=== PATIENT | female | born 1985 | race African-American/Black ===

== ENCOUNTER 2018-07-19 10:00 | Outpatient (RCR) | payer OTHER, SELFPAY ==
[2018-04-17 16:09] VITALS: BMI 25.4
--- NOTE | 2018-07-17 09:21 | HP.OTEVAL_ITS ---
Patient's Visit Information CASSIE GOODE is a 33 year old F, referred to Occupational Therapy by J Luis Reza DO, with a diagnosis of breast cancer. Date of Evaluation: 07/16/18 Occupational Therapist: ROLANDA Patton/Joselin, CHT - Subjective Subjective: Pt arrives with [id number]. per dr report: states Cassie Goode is a 33-year-old premenopausal female clinical stage IIA-IIIA ([id number] cN1 (f) M0, ypT1b ypN1a M0) high-grade invasive ductal carcinoma (ER >95%, MS 38 %, Her2 0 IHC) of the right breast upper outer quadrant status post confirmatory biopsy of the breast tumor as well as 1 of the abnormal appearing right axillary lymph nodes, neoadjuvant chemotherapy consisting of ddAC x 4 cycles followed by dd paclitaxel x 1 cycle and weekly paclitaxel for 7 weeks ( dose dense switched due to toxicity and weekly stopped 2 weeks early due to infusion reaction), and bilateral nipple sparing mastectomy with right SLNBx and completion axillary dissection with immediate bilateral tissue set up operator placement (02/21/18). From 04/23/18 - 06/05/18 she received 5000 cGy in 25 fractions to the right CW (with set up operator in place) and Regional Lymph Nodes ( undissected axilla, supraclavicular fossa, and internal mammary LNs) followed by a sequential boost consisting of 1000 cGy of 12 MeV electrons in 5 fractions was delivered to the mastectomy scar. Pt states she was dx with breast cancer in 2017. 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 PT states she has finished her radiation and will be having reconstruction sx in 6-8 months. Pt states ten - 12 lymph nodes removed 1 positve. pt would like to learn how to work and mtg her upcoming sx. - ROM Shoulder: right 160 left 170 Elbow: right WNL left WNL ROM Comments: pt demo right shoulder flex WFL and left WNL- pt does push head forward with motions- pt states she does have scoliocis and can not lay flat. pt feels she had full shoulder ROM prior to her sx. pt demo with fair sitting posture. - Strength Shoulder: right 4/5 left 5/5 Elbow: right 4/5 left 5/5 Strength Comments: pt demo with decrease in right UE MMT compaired to left. - Lymphedema (Circumferential Measure) MCP: right 19 left 19.5 Wrist: 15.5 left 16cm Lower forearm: 18 left 18 Largest forearm: 24cm left 24cm Elbow: 24.5cm left 25cm Largest humerus: 26cm left 27cm Axcillary: 29cm left 30cm - DASH-Disabilities of Arm, Shoulder& Hand DASH Sum: 48 - Goals Demonstrate adequate knowledge of self-massage by 2nd week: Yes Demonstrate adequate knowledge skin care/prec by 2nd week: Yes Demonstrate adequate knowledge therapeutic exercises by d/c: Yes Select approp compression garment w/donning/care/wear by d/c: Yes Voice need to replace compression garment every 4-6mo by dc: Yes - Rehabilitation General Assessment: pt demo with slight limited right shoulder flex and weakness - pt would benefit from skilled OT services to ed. pt on UB ROM, posture ex, scar mtg and lymph massage to right UE. Today pt was ed. on ex that included scapula and upper trap to assist in increaseing her posture. pt ed. she will need compression garment 20-30mmHg for flying. pt ed. if she increased her wts with ex. and noticed swelling she would need to use her compression sleeve with her ex. classes. pt demo understanding. pt will return for training on self manual lymph drainage. Rehabilitation Potential: Good - Anticipated Interventions Anticipated Interventions: Education re Diagnosis, Manual Lymph Drainage, Education re Life-long lymphedema Management, Education re Skin Care and Precautions, Education re Self Massage Techniques, Education re Correct Donning Tech,Care&Wearing Sched Comp Garments, Home Program - Visit Plan Frequency: 1x/Week Duration: 3 Weeks TEXT: Thank you for the opportunity to evaluate your patient. For Medicare and Medicare HMO plans, please review the plan of care and approve it. It will need to be FAXED BACK to us at [phone] for Medicare purposes. Please let me know if there are questions or concerns regarding this plan of care. Physician Signature: Date:
--- NOTE | 2018-09-11 08:09 | HP.OT.NRP ---
HP - Discharge Summary - Patient Information CASSIE HILL was seen in my office for initial evaluation on 07/16/18. The following Plan of Care was established for this patient: Initial Frequency: 1x/Week Initial Duration: 3 Weeks - Anticipated Interventions Anticipated Interventions: Education re Diagnosis, Manual Lymph Drainage, Education re Life-long lymphedema Management, Education re Skin Care and Precautions, Education re Self Massage Techniques, Education re Correct Donning Tech,Care&Wearing Sched Comp Garments, Home Program This patient was last seen in our office 07/19/18. Pertinent comments regarding their Occupational therapy will appear below: Pt was seen for intial eval and one follow up visit pir[place] to leaving the country [place] three weeks. Pt and spouse were ed. on MLD sam. and posture ex. pt also ed. on compression sleeve use while flying. Pt and spouse demo understanding. At this time due to timelapse in services pt D/C at this time. At this point I will be discontinuing this patient from occupational therapy. I would be happy to see this patient again in the future if found appropriate by the physician. Thank you! Martina Hamilton, OTR/L, CHT
== END 2018-07-19 19:00 | disposition home or self-care (01) ==
LOC: OT 10:00
PROVIDERS: Family Provider Family Medicine; PCP Family Medicine; Visit Provider Student in an Organized Health Care Education/Training Program
DX: C50.919 Malignant neoplasm of unspecified site of unspecified female breast (principal)
CPT/HCPCS: 97140; 97166

== ENCOUNTER → 2018-10-11 16:23 | Outpatient (CLI) | payer OTHER, SELFPAY ==
[2018-04-17 16:09] VITALS: BMI 25.4
[2018-10-10 14:01] VITALS: BMI 23.6
[2018-10-11 16:31] LABS: Hemoglobin 10.7 g/dl (12.0-15.0); Mean Corp Hgb Conc 31.5 g/gl (32-36); Mean Corpuscular Hgb 22.8 pg (27.0-32.0); Mean Corpuscular Volume 72.5 fL (81-99); Mean Platelet Vol. 10.4 fl (6.2-12.0); Platelet Count 212 K/mm3 (150-450); RBC Distribution Width CV 16.4 % (11.6-14.6); RBC Distribution Width SD 43.5 fl (35.1-43.9); Red Blood Count 4.69 M/mm3 (4.2-5.4)
[2018-10-11 16:34] LABS: Scan Indicated on CBC? Y/N NO
--- OUTSIDE RECORDS SUMMARY | 2018-11-27 13:58 | XMS RPT_ITS ---
:1985 Author Organization OHIP Support Name Relationship Address Phone [facility] Unavailable [address] + [place] [address] JAYDEN HILL Unavailable [address] + [place] [address] HILL, EDGAR/CURTIS Unavailable [address] + [place] [address] [facility] Unavailable [address] + [place] [address] JAYDEN HILL Unavailable [address] + [place] [address] HILL, EDGAR/CURTIS Unavailable [address] + [place] [address] [facility] Unavailable [address] + [place] [address] JAYDEN HILL Unavailable [address] + [place] [address] HILL, EDGAR/CURTIS Unavailable [address] + [place] [address] [facility] Unavailable [address] + [place] [address] JAYDEN HILL Unavailable [address] + [place] [address] HILL, EDGAR/CURTIS Unavailable [address] + [place] [address] [facility] Unavailable [address] + [place] [address] JAYDEN HILL Unavailable [address] + [place] [address] HILL, EDGAR/CURTIS Unavailable [address] + [place] [address] JAYDEN HILL Unavailable Unavailable + JAYDEN HILL Unavailable Unavailable + JAYDEN HILL Unavailable Unavailable Unavailable CASSIE HILL Unavailable Unavailable Unavailable [facility] Unavailable [address] + [place] [address] JAYDEN HILL Unavailable [address] + [place] [address] HILL, EDGAR/CURTIS Unavailable [address] + [place] [address] [facility] Unavailable [address] + [place] [address] JAYDEN HILL Unavailable [address] + [place] [address] HILL, EDGAR/CURTIS Unavailable [address] + [place] [address] JAYDEN HILL Unavailable [address] + [place] [address] JAYDEN HILL Unavailable [address] [place] [address] NOT GIVEN Unavailable Unavailable Unavailable [facility] Unavailable [address] + [place] [address] JAYDEN HILL Unavailable [address] + [place] [address] HILL, EDGAR/CURTIS Unavailable [address] + [place] [address] JAYDEN HILL Unavailable [address] + [place] [address] JAYDEN HILL Unavailable [address] [place] [address] NOT GIVEN Unavailable Unavailable Unavailable [facility] Unavailable [address] + [place] [address] JAYDEN HILL Unavailable [address] + [place] [address] HILL, EDGAR/CURTIS Unavailable [address] + [place] [address] [facility] Unavailable [address] + [place] [address] JAYDEN HILL Unavailable [address] + [place] [address] HILL, EDGAR/CURTIS Unavailable [address] + [place] [address] [facility] Unavailable [address] + [place] [address] JAYDEN HILL Unavailable [address] + [place] [address] HILL, EDGAR/CURTIS Unavailable [address] + [place] [address] [facility] Unavailable [address] + [place] [address] JAYDEN HILL Unavailable [address] + [place] [address] HILL, EDGAR/CURTIS Unavailable [address] + [place] [address] [facility] Unavailable [address] + [place] [address] JAYDEN HILL Unavailable [address] + [place] [address] HILL, EDGAR/CURTIS Unavailable [address] + [place] [address] [facility] Unavailable [address] + [place] [address] JAYDEN HILL Unavailable [address] + [place] [address] HILL, EDGAR/CURTIS Unavailable [address] + [place] [address] [facility] Unavailable [address] + [place] [address] JAYDEN HILL Unavailable [address] + [place] [address] HILL, EDGAR/CURTIS Unavailable [address] + [place] [address] JAYDEN HILL Unavailable Unavailable + JAYDEN HILL Unavailable Unavailable + [facility] Unavailable [address] + [place] [address] JAYDEN HILL Unavailable [address] + [place] [address] HILL, EDGAR/CURTIS Unavailable [address] + [place] [address] [facility] Unavailable [address] + [place] [address] JAYDEN HILL Unavailable [address] + [place] [address] HILL, EDGAR/CURTIS Unavailable [address] + [place] [address] [facility] Unavailable [address] + [place] [address] JAYDEN HILL Unavailable [address] + [place] [address] HILL, EDGAR/CURTIS Unavailable [address] + [place] [address] [facility] Unavailable [address] + [place] [address] JAYDEN HILL Unavailable [address] + [place] [address] HILL, EDGAR/CURTIS Unavailable [address] + [place] [address] JAYDEN HILL Unavailable Unavailable Unavailable HILL, ASHADEE Unavailable Unavailable Unavailable SERGIO JAYDEN Unavailable Unavailable Unavailable HILL, ASHADEE Unavailable Unavailable Unavailable HILL, JAYDEN Unavailable Unavailable Unavailable HILL, ASHADEE Unavailable Unavailable Unavailable HILL JAYDEN Unavailable Unavailable Unavailable HILL, ASHADEE Unavailable Unavailable Unavailable [facility] Unavailable [address] + [place] [address] JAYDEN HILL Unavailable [address] + [place] [address] HILL, EDGAR/CURTIS Unavailable [address] + [place] [address] [facility] Unavailable [address] + [place] [address] JAYDEN HILL Unavailable [address] + [place] [address] HILL, EDGAR/CURTIS Unavailable [address] + [place] [address] [facility] Unavailable [address] + [place] [address] JAYDEN HILL Unavailable [address] + [place] [address] HILL, EDGAR/CURTIS Unavailable [address] + [place] [address] SERGIOJAYDEN Unavailable Unavailable Unavailable HILL, CASSIE Unavailable Unavailable Unavailable [facility] Unavailable [address] [place] [address] RD + [place] [address] HILLJAYDEN Unavailable [address] + [place] [address] HILL, EDGAR/CURTIS Unavailable [address] + [place] [address] JAYDEN HILL Unavailable Unavailable + HILL, JAYDEN Unavailable Unavailable + HILL, JAYDEN Unavailable Unavailable + HILL, JAYDEN Unavailable Unavailable + HILL, JAYDEN Unavailable Unavailable + HILL, JAYDEN Unavailable Unavailable + HILL, JAYDEN Unavailable Unavailable + HILL, JAYDEN Unavailable Unavailable + HILL, JAYDEN Unavailable Unavailable + HILL, JAYDEN Unavailable Unavailable + [facility] Unavailable [address] + [place] [address] HILL, JAYDEN Unavailable [address] + [place] [address] HILL, EDGAR/CURTIS Unavailable [address] + [place] [address] NOT GIVEN Unavailable Unavailable Unavailable HILL, JAYDEN Unavailable Unavailable + HILL, JAYDEN Unavailable Unavailable + HILLJAYDEN Unavailable Unavailable + HILL, JAYDEN Unavailable Unavailable + HILL, JAYDEN Unavailable [address] + [place] [address] HILL, JAYDEN Unavailable [address] [place] [address] NOT GIVEN Unavailable Unavailable Unavailable JAYDEN HILL Unavailable Unavailable + HILL, JAYDEN Unavailable Unavailable + JAYDEN HILL Unavailable Unavailable + HILL, JAYDEN Unavailable Unavailable + HILL, JAYDEN Unavailable Unavailable + HILL, JAYDEN Unavailable Unavailable + JAYDEN HILL Unavailable [address] + [place] [address] HILLJAYDEN Unavailable [address] [place] [address] NOT GIVEN Unavailable Unavailable Unavailable SERGIO JAYDEN Unavailable Unavailable + HILL JAYDEN Unavailable Unavailable + JAYDEN HILL Unavailable [address] + [place] [address] HILLJAYDEN Unavailable [address] [place] [address] NOT GIVEN Unavailable Unavailable Unavailable HILL JAYDEN Unavailable Unavailable + HILLJAYDEN Unavailable Unavailable + HILLJAYDEN Unavailable [address] + [place] [address] HILLJAYDEN Unavailable [address] [place] [address] NOT GIVEN Unavailable Unavailable Unavailable SERGIO JAYDEN Unavailable Unavailable + SERGIO JAYDEN Unavailable Unavailable + HILLJAYDEN Unavailable [address] + [place] [address] HILLJAYDEN Unavailable [address] [place] [address] NOT GIVEN Unavailable Unavailable Unavailable SERGIO JAYDEN Unavailable Unavailable + SERGIO JAYDEN Unavailable Unavailable + HILLJAYDEN Unavailable [address] + [place] [address] HILLJAYDEN Un[address] [place] [address] NOT GIVEN Unavailable Unavailable Unavailable SERGIO JAYDEN Unavailable Unavailable + SERGIO JAYDEN Unavailable Unavailable + HILLJAYDEN Unavailable [address] + [place] [address] SERGIO JAYDEN Unavailable [address] [place] [address] NOT GIVEN Unavailable Unavailable Unavailable SERGIO JAYDEN Unavailable [address] + [place] [address] SERGIO JAYDEN Unavailable [address] [place] [address] NOT GIVEN Unavailable Unavailable Unavailable Care Team Providers Name Role Phone J Luis Reza Attending Unavailable Sharda Giraldo PA-C Referring Unavailable Jamieson, Sharda PA-C Primary Care Unavailable Juaquin, J Luis Attending Unavailable Jamieson, Sharda PA-C Referring Unavailable Jamieson, Sharda PA-C Primary Care Unavailable Juaquin, J Luis Consulting Unavailable Juaquin, J Luis Attending Unavailable Jamieson, Sharda PA-C Referring Unavailable Jamieson, Sharda PA-C Primary Care Unavailable Juaquin, J Luis Consulting Unavailable Jamie Ferreira Attending Unavailable Jamieson, Sharda PA-C Referring Unavailable Jamieson, Sharda PA-C Primary Care Unavailable Juaquin, J Luis Consulting Unavailable Juaquin, J Luis Attending Unavailable Juaquin, J Luis Referring Unavailable Juaquin, J Luis Attending Unavailable Juaquin, J Luis Referring Unavailable Juaquin, J Luis Attending Unavailable Juaquin, J Luis Referring Unavailable Juaquin, J Luis Attending Unavailable Jamieson, Sharda PA-C Referring Unavailable Jamieson, Sharda PA-C Primary Care Unavailable Juaquin, J Luis Consulting Unavailable Juaquin, J Luis Attending Unavailable Jamieson, Sharda PA-C Referring Unavailable Jamieson, Sharda PA-C Primary Care Unavailable Juaquin, J Luis Consulting Unavailable Juaquin, J Luis Attending Unavailable Jamieson, Sharda PA-C Referring Unavailable Jamieson, Sharda PA-C Primary Care Unavailable Juaquin, J Luis Consulting Unavailable Juaquin, J Luis Attending Unavailable Jamieson, Sharda PA-C Referring Unavailable Jamieson, Sharda PA-C Primary Care Unavailable Juaquin, J Luis Consulting Unavailable Jamie Ferreira Attending Unavailable Jamieson, Sharda PA-C Referring Unavailable Jamieson, Sharda PA-C Primary Care Unavailable Juaquin, J Luis Consulting Unavailable Juaquin, J Luis Attending Unavailable Juaquin, J Luis Referring Unavailable Juaquin, J Luis Attending Unavailable Jamieson, Sharda PA-C Referring Unavailable Jamieson, Sharda PA-C Primary Care Unavailable Juaquin, J Luis Consulting Unavailable Juaquin, J Luis Attending Unavailable Jamieson, Sharda PA-C Referring Unavailable Jamieson, Sharda PA-C Primary Care Unavailable Juaquin, J Luis Consulting Unavailable Juaquin, J Luis Attending Unavailable Juaquin, J Luis Referring Unavailable Juaquin, J Luis Attending Unavailable Juaquin, J Luis Referring Unavailable Juaquin, J Luis Attending Unavailable Jamieson, Sharda PA-C Referring Unavailable Jamieson, Sharda PA-C Primary Care Unavailable Juaquin, J Luis Consulting Unavailable Jamie Ferreira Attending Unavailable Jamieson, Sharda PA-C Referring Unavailable Jamieson, Sharda PA-C Primary Care Unavailable Juaquin, J Luis Consulting Unavailable Jacqui Vivar Attending Unavailable Jamieson, Sharda PA-C Primary Care Unavailable Isckarus, Jamie Attending Unavailable Jamieson, Sharda PA-C Referring Unavailable Jamieson, Sharda PA-C Primary Care Unavailable [place]wood, J Luis Consulting Unavailable Juaquin, J Luis Attending Unavailable Juaquin, J Luis Referring Unavailable Jamieson, Sharda PA-C Primary Care Unavailable Isckarus, Jamie Attending Unavailable Jamieson, Sharda PA-C Referring Unavailable Jamieson, Sharda PA-C Primary Care Unavailable Juaquin, J Luis Consulting Unavailable Juaquin, J Luis Attending Unavailable Jamieson, Sharda PA-C Referring Unavailable Jamieson, Sharda PA-C Primary Care Unavailable Juaquin, J Luis Consulting Unavailable DONNY NOLAND Admitting Unavailable NUZHAT, DONNY Attending Unavailable NUZHAT, DONNY Primary Care Unavailable NOTTINGHAM, SHARDA Consulting Unavailable PROVIDER, UNKNOWN Consulting Unavailable DONNY NOLAND Admitting Unavailable NUZHAT, DONNY Attending Unavailable NUZHAT, DONNY Primary Care Unavailable NOTTINGHAM, SHARDA Consulting Unavailable PROVIDER, UNKNOWN Consulting Unavailable NOTTINGHAM, SHARDA Admitting Unavailable NOTTINGHAM, SHARDA Attending Unavailable NOTTINGHAM, SHARDA Primary Care Unavailable NOTTINGHAM, SHARDA Consulting Unavailable PROVIDER, UNKNOWN Consulting Unavailable DONNY NOLAND Admitting Unavailable NUZHAT, DONNY Attending Unavailable NUZHAT, DONNY Primary Care Unavailable NOTTINGHAM, SHARDA Consulting Unavailable PROVIDER, UNKNOWN Consulting Unavailable NOTTINGHAM, SHARDA Admitting Unavailable NOTTINGHAM, SAHRDA Attending Unavailable NOTTINGHAM, SHARDA Primary Care Unavailable NOTTINGHAM, SHARDA Consulting Unavailable PROVIDER, UNKNOWN Consulting Unavailable MALCOLM, DR ANUP Vega Admitting Unavailable MALCOLM, DR ANUP Vega Attending Unavailable NOTTINGHAM, SHARDA Referring Unavailable MALCOLM, DR ANUP Vega Primary Care Unavailable NOTTINGHAM, SHARDA Consulting Unavailable PROVIDER, UNKNOWN Consulting Unavailable NOTTINGHAM, SHARDA Admitting Unavailable NOTTINGHAM, SHARDA Attending Unavailable NOTTINGHAM, SHARDA Primary Care Unavailable NOTTINGHAM, SHARDA Consulting Unavailable PROVIDER, UNKNOWN Consulting Unavailable MOISES GARCÍA Admitting Unavailable MOISES GARCÍA Attending Unavailable RICKY, MOISES SUMMER Primary Care Unavailable NOTTINGHAM, SHARDA Consulting Unavailable PROVIDER, UNKNOWN Consulting Unavailable ISCKARUS, REYMUNDOOUR Admitting Unavailable ISCKARUS, JAMIE Attending Unavailable ISCKARUS, MANSOUR Primary Care Unavailable NOTTINGHAM, SHARDA Consulting Unavailable PROVIDER, UNKNOWN Consulting Unavailable ELIZABETH FONTAINE MD Admitting Unavailable ELIZABETH FONTAINE MD Attending Unavailable ELIZABETH FONTAINE MD Primary Care Unavailable NOTTINGHAM, SHARDA Referring Unavailable NOTTINGHAM, SHARDA Consulting Unavailable PROVIDER, UNKNOWN Consulting Unavailable NOTTINGHAM, SHARDA Consulting Unavailable NOTTINGHAM, SHARDA Referring Unavailable JOEY BROCK MD Admitting Unavailable JOEY BROCK MD Attending Unavailable JOEY BROCK MD Primary Care Unavailable PROVIDER, UNKNOWN Consulting Unavailable ESVIN MENDENHALL Attending Unavailable SELF, SELF Referring Unavailable NOTTINGHAM, SHARDA D Primary Care Unavailable SARDESAIALTAFAR D Attending Unavailable NOTTINGHAM, SHARDA D Referring Unavailable NOTTINGHAM, SHARDA D Primary Care Unavailable SARDESAIESVIN D Attending Unavailable NOTTINGHAM, SHARDA D Referring Unavailable NOTTINGHAM, SHARDA D Primary Care Unavailable SARDESAIESVIN D Attending Unavailable SARDESAIALTAFAR D Referring Unavailable NOTTINGHAM, SHARDA D Primary Care Unavailable SARDESESVIN BREAUX D Attending Unavailable SARDESAI, ESVIN D Referring Unavailable NOTTINGHAM, SHARDA D Primary Care Unavailable MAHADDESESVIN BREAUX D Attending Unavailable NOTTINGHAM, SHARDA D Referring Unavailable NOTTINGHAM, SHARDA D Primary Care Unavailable Dr. Nuzhat Hines Admitting Unavailable Donny, Dr. Noland Attending Unavailable Jamieson, Ms. Sharda Ramírez Primary Care Unavailable Donny, Dr. Noland Admitting Unavailable Donny, Dr. Noland Attending Unavailable Jamieson, Ms. Sharda Ramírez Primary Care Unavailable Donny, Dr. Noland Admitting Unavailable Donny, Dr. Noland Attending Unavailable Jamieson, Ms. Sharda Ramírez Primary Care Unavailable Donny, Dr. Noland Admitting Unavailable Donny, Dr. Noland Attending Unavailable Jamieson, Ms. Sharda Ramírez Primary Care Unavailable Donny, Dr. Noland Admitting Unavailable Donny, Dr. Noland Attending Unavailable Jamieson, Ms. Sharda Ramírez Primary Care Unavailable Donny, Dr. Noland Admitting Unavailable Donny, Dr. Noland Attending Unavailable Jamieson, Ms. Sharda Ramírez Primary Care Unavailable Del, Dr. Lalitha Hensley Attending Unavailable Del, Dr. Lalitha Hensley Referring Unavailable Kristal, Ms. Sharda Ramírez Primary Care Unavailable Del, Dr. Lalitha Hensley Admitting Unavailable Del, Dr. Lalitha Hensley Attending Unavailable Jamieson, Ms. Sharda Ramírez Primary Care Unavailable DEL, LALITHA R Attending Unavailable Jamieson, Ms. Sharda Ramírez Primary Care Unavailable DEL, LALITHA R Admitting Unavailable DEL, LALITHA R Attending Unavailable *SELF, REFERRED Referring Unavailable Jamieson, Ms. Sharda Ramírez Primary Care Unavailable Donny, Dr. Noland Admitting Unavailable Donny, Dr. Noland Attending Unavailable Jamieson, Ms. Sharda Ramírez Primary Care Unavailable Donny, Dr. Noland Attending Unavailable Donny, Dr. Noland Referring Unavailable Jamieson, Ms. Sharda Ramírez Primary Care Unavailable Donny, Dr. Noland Admitting Unavailable Donny, Dr. Noland Attending Unavailable Jamieson, Ms. Sharda Ramírez Primary Care Unavailable Donny, Dr. Noland Admitting Unavailable Donny, Dr. Noland Attending Unavailable Jamieson, Ms. Sharda Ramírez Primary Care Unavailable Donny, Dr. Noland Admitting Unavailable Donny, Dr. Noland Attending Unavailable Jamieson, Ms. Sharda Ramírez Primary Care Unavailable Donny, Dr. Noland Admitting Unavailable Donny, Dr. Noland Attending Unavailable Jamieson, Ms. Sharda Ramírez Primary Care Unavailable DEL, LALITHA R Admitting Unavailable DEL, LALITHA R Attending Unavailable Jamieson, Ms. Sharda Ramírez Primary Care Unavailable PROBLEMS PROBLEMS DATE TYPE CONDITION / CODE ATTENDING STATUS SOURCE 11/20/2018 Unknown C50.411 - Malignant Isckarus, Active [facility] quadrant of right Repository female breast / C50.411(ICD-10) 10/02/2018 Unknown D50.9 - Iron J Luis Reza Active [facility] deficiency anemia, Community unspecified / Hospital D50.9(ICD-10) Repository 10/01/2018 Final diagnosis Malignant neoplasm LALITHA MATHIS Active [facility] site of Hospitals right female breast Repository / C50.911(ICD-10) 10/01/2018 Final diagnosis [facility] 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 Repository nodes / C77.3(ICD-10) 10/01/2018 Final diagnosis Personal history of LALITHA MATHIS Active [facility] (discharge[facility] antineoplastic Hospitals chemotherapy / Repository Z92.21(ICD-10) 07/30/2018 Admitting Follow-up / 145() ESVIN MENDENHALL Active [facility] diagnosis D [facility] Repository 09/11/2018 Unknown C50.919 - Malignant J Luis Reza Active [facility] neoplasm of Community unspecified site of Hospital unspecified female Repository breast / C50.919(ICD-10) 07/17/2018 Unknown Z51.0 - Encounter Isckarus, Active [facility] for antineoplastic [facility] radiation therapy / Hospital Z51.0(ICD-10) Repository 07/10/2018 Unknown L58.9 - J Luis Reza Active [facility] Radiodermatitis, Community unspecified / Hospital L58.9(ICD-10) Repository 05/28/2018 Unknown C50.911 - Malignant J Luis Reza Active [facility] neoplasm of Community unspecified site of Hospital right female breast Repository / C50.911(ICD-10) 04/19/2018 Admitting Malignant neoplasm ESVIN MENDENHALL Active [facility] diagnosis of unspecified site D [facility] / Center C50.911(ICD-10) Repository 03/13/2018 Final diagnosis Malignant neoplasm Dr. Donny Active [facility] (discharge) [facility] unspecified female Repository breast / C50.919(ICD-10) 03/05/2018 Final diagnosis Thalassemia minor / LALITHA MATHIS [facility] (discharge) D56.3(ICD-10) Hospitals Repository 02/21/[address] Lalitha Mathis Active [facility] diagnosis of [facility] right female breast Repository / C50.911(ICD-10) 02/21/2018 Admitting [facility] Dr. Lalitha Galarza Active [facility] diagnosis neoplasm of axilla [facility] and upper limb Repository nodes / C77.3(ICD-10) 02/23/[address] Lalitha Mathis Active [facility] of [facility] right female breast Repository / C50.911(ICD-10) 02/23/2018 Unknown [facility] Dr. Lalitha Galarza Active [facility] neoplasm of axilla [facility] and upper limb Repository nodes / C77.3(ICD-10) 02/23/[address] Lalitha Mathis [facility] pulmonary valve [facility] insufficiency / Repository I37.1(ICD-10) 02/23/2018 Unknown Alpha thalassemia / Del, Dr. Doty [facility] D56.0(ICD-10) [facility] Repository 02/23/2018 Unknown Iron deficiency Del, Dr. Doty [facility] anemia, unspecified [facility] / D50.9(ICD-10) Repository 02/23/2018 Unknown Personal history of Dr. Lalitha Mathis [facility] antineoplastic [facility] chemotherapy / Repository Z92.21(ICD-10) 02/23/[address] Lalitha Mathis Active [facility] site of [facility] right female breast Repository / C50.911(ICD-10) 02/21/2018 Admitting Acquired absence of Dr. Lalitha Mathis [facility] diagnosis bilateral breasts [facility] and nipples / Repository Z90.13(ICD-10) 02/06/2018 Principle Encounter for SHARDA Arita Diagnosis preprocedural [facility] examination / Hospital S96135(ICD-10) Repository 12/26/2017 Final diagnosis Unspecified atrial Dr. Donny [facility] (discharge) [place] / [facility] I48.92(ICD-10) Repository 12/26/2017 Final diagnosis Chest pain, Dr. Donny [facility] (discharge) unspecified / [facility] R07.9(ICD-10) Repository 12/26/2017 Final diagnosis Encounter for Dr. Donny [facility] (discharge) antineoplastic [facility] chemotherapy / Repository Z51.11(ICD-10) 11/04/2017 Admitting Other specified ELIZABETH FONTAINE Diagnosis disorders of boneMD [facility] unspecified site / Hospital M898X9(ICD-10) Repository 11/04/2017 Principle Other specified ELIZABETH FONTAINE Diagnosis disorders of boneMD [facility] unspecified site / Hospital M898X9(ICD-10) Repository PROCEDURES PROCEDURES DATE CODE DESCRIPTION STATUS SOURCE 02/21/2018 75402([facility] [address] [facility] CPT-4) Hospitals Repository 02/21/2018 00866([facility] [address] [facility] CPT-4) Hospitals Repository 02/21/2018 68956([facility] [address] [facility] CPT-4) Hospitals Repository 02/21/2018 24345([facility] [id number] Completed [facility] CPT-4) Hospitals Repository 02/21/2018 78500([facility] [id number] Completed [facility] CPT-4) Hospitals Repository 02/21/2018 51985([facility] [id number] Completed [facility] CPT-4) Hospitals Repository 02/21/2018 90112([facility] [id number] Completed [facility] CPT-4) Hospitals Repository RESULTS RESULTS ONCOLOGY VISIT REPORT Observed: 11/20/2018 Status: F Source: ASTATULA 1:20 PM [facility] REPOSITORY [facility] [place] [address] OFFICE VISIT Date of Service: 11/20/18 1228 MR#: [id number] Acct: [id number] Name: CASSIE HILL Rep #: [id number] : 1985 From: Jamie Ferreira MD Age/Sex: 33/F Location: OMD Status: Signed - Problem List (1) Iron deficiency anemia Status: Chronic (2) Thalassemia trait, alpha Status: Chronic - Date of Service Date of Service:: 11/20/18 - Chief Complaint Anemia - History of Present Illness Patient is a 33-year-old female premenopausal of ancestry with chronic anemia. Her anemia had been attributed to chronic iron deficiency due to heavy menses and alpha thalassemia trait (patient reports diagnosis was made in [facility] and then in [facility].) Over the years she has been advised to take oral iron supplement, she has required occasional IV iron and on occasions had required transfusion with packed red cells due to severe anemia. Diagnosed with early stage breast cancer in 2017, her cancer care is at [facility] in [place]. - Interval History This visit was requested by the patient to discuss her wish to have a central venous access for lab work and future IV iron infusions. She did have a previous access while undergoing systemic chemotherapy which had to be removed at the conclusion of treatment you to discomfort that she attributed to lack of subcutaneous fat and the port was sticking out - Past Medical/Social History Past Medical History Cancer: Breast cancer Other Cancer History: PRECANCEROUS CELLS ON CERVIX 2016 Social History Smoking Status Never smoker Vital Signs Height 5 ft 9 in Weight: 70.307 kg Weight in Pounds 155.0 lbs BMI 25.4 Pulse Ox 99 - Physical Exam General: Alert, Oriented x3, No apparent distress Assessment and Plan 33-year-old female of ancestry with chronic fatigue and a chronic microcytic anemia consistent with: #1 chronic iron deficiency anemia due to heavy menstrual losses, and occasional hemorrhoidal bleed. She has not tolerated oral iron well due to GI side effect, constipation aggravating her hemorrhoidal bleed. She did receive IV iron in May 2018 with improvement. #2. Alpha thalassemia trait by history. Recommendations: #1 Advised to continue oral iron supplement 1 tablet daily (not compliant, using natural products and a lot of greens) till menopause Or heavy menstrual losses are stopped by JUKEBOX [employer]OUTE [employer]IVER intervention . #2 Supplement with IV iron as guided by blood work. #3 To follow-up with JUKEBOX ROUTE [employer]IVER for remedy for heavy menses. These issues of care Were reviewed . #4 Most of the visit today was dedicated to discussion of pros and cons of having and long-term central venous access. In addition to the immediate risks during placement being an invasive procedure there are long-term mists including infections that can be life-threatening, risk of venous thrombosis and pulmonary embolism and risks related to chronic venous insufficiency. And contrast to irritant and Vesicant IV chemotherapy, Intravenous iron therapy does not require central venous access. Her need for future use of IV iron are expected to decline Or completely resolve either by natural menopause Or a JUKEBOX [employer]OUTE [employer]IVER intervention. Also, the frequency of IV iron administration does not justify inserting central venous access for that sole use only. Patient did inform me of her intent of pursuing unconventional anticancer treatment such as high doses of IV vitamin C for which she was considering using the central venous access for. I had been made aware by of vy patient has posted on social media information about seeking cancer treatment outside the [place]. I am concerned about increased risk for complications specially infections if the port is used outside the standard of care within [place]. I did share that concern with the patient. She is contemplating pressed plastic surgery in November 2018 and I advised deferring her decision about central venous access placement until after the surgical procedure to minimize the risks of vascular access infection. Medications: Medications Added to Medication List This Visit Iron Sucrose Complex [Venofer] 300 mg Med 11/20/18 11:30 Active 0.9% Normal Saline 250 ml IV X1 Primary Care Provider: Sharda Giraldo PA-C Referring Provider: Sharda Giraldo PA-C 11/20/18 1320 <Electronically signed by Jamie Ferreira MD> Date Jamie Ferreira MD Cosigner Signature: Date (if applicable) CC: PROGRESS Observed: 11/15/2018 Status: COMPLETED Source: [facility] [facility] 10:00 AM [facility] [place] REPOSITORY HNO ID: [id number] Author: Dayton Mauro Service: (none) Author Type: Physician Type: Progress Notes Filed: 11/15/2018 11:05 AM Note Text: [facility] Dayton Mauro DO, KAILEE, FAACS* Name: Cassie Hill She is now scheduled for stage II reconstruction bilateral. She had significant radiation to the right side. I am planning to use style for 10 implants bilateral and free fat transfer to the right breast to counter the patient history and attempt to prevent radiation contracture. We reviewed the surgery in detail today and I will have an array of implants available. Nery and I have reviewed the procedure and answered all of her and her 's questions to their satisfaction. Any concerns or questions prior to next appointment, patient is to call office or return sooner. Dayton Mauro DO November 15, 2018 This note was generated with voice recognition software and may contain errors, including spelling, grammar, syntax and misrecognition of what was dictated, that are not fully corrected. HISTORY PHYSICAL Observed: 11/15/2018 Status: COMPLETED Source: [facility] [facility] 10:00 AM [facility] REPOSITORY HNO ID: [id number] Author: Nery Britton Service: (none) Author Type: (none) Type: HANDP Filed: 11/15/2018 11:05 AM Note Text: [facility] KAILEE BONILLA FOLLOW-UP Name: Cassie Hill INTERVAL HPI AND PERTINENT ROS: 33-year-old female presents in preop for stage II bilateral breast reconstruction right side with radiation History and free fat transfer. PHYSICAL EXAM: GEN: Alert, oriented, NAD LUNGS: Unlabored breathing PERTINENT: bilateral breast mounds ASSESSMENT and PLAN of CARE: Dr. Mauro and I discussed the procedure of stage II breast reconstruction in detail along with risks complications alternatives and benefits Patient is ready to proceed. Nery Mcgregor-Claire November 15, 2018 CBC-COMPLETE BLOOD CNT Collected: 10/11/2018 Status: F Source: [place] NO DIFF 4:24 PM [facility] REPOSITORY TYPE CODE TESTS RESULT OUT OF RANGE REFERENCE UNITS LAB L100.1000 4.4-11.0 K/mm3 Low WBC 4.0 LAB L100.1200 4.2-5.4 M/mm3 Normal RBC 4.69 LAB L100.1300 12.0-15.0 g/dl Low HGB 10.7 LAB L100.1400 37-47 % Low HCT 34.0 LAB L100.1500 81-99 fL Low MCV 72.5 LAB L100.1600 27.0-32.0 pg Low MCH 22.8 LAB L100.1700 32-36 g/gl Low MCHC 31.5 LAB L100.1810 11.6-14.6 % High RDW CV 16.4 LAB L100.1820 35.1-43.9 fl Normal RDW SD 43.5 LAB L100.1900 150-450 K/mm3 Normal PLT 212 LAB L100.2000 6.2-12.0 fl Normal MPV 10.4 Performed By: #### L100.0500 #### [facility] [address] [place], [place], [id number] ONCOLOGY VISIT REPORT Observed: 10/10/2018 Status: F Source: [place] 2:22 PM [facility] REPOSITORY [facility] [address] [place] [address] OFFICE VISIT Date of Service: 10/10/18 1346 MR#: [id number] Acct: [id number] Name: CASSIE HILL Henry Rep #: [id number] : 1985 From: Jamie Ferreira MD Age/Sex: 33/F Location: [facility] Status: Signed - Problem List (1) Iron deficiency anemia Status: Chronic (2) Thalassemia trait, alpha Status: Chronic - Date of Service Date of Service:: 10/10/18 - Chief Complaint Anemia - History of Present Illness Patient is a 33-year-old female premenopausal of ancestry with chronic anemia. Her anemia had been attributed to chronic iron deficiency due to heavy menses and alpha thalassemia trait (patient reports diagnosis was made in [facility] and then in [facility] and [facility].) Over the years she has been advised to take oral iron supplement, she has required occasional IV iron and on occasions had required transfusion with packed red cells due to severe anemia. Diagnosed with early stage breast cancer in 2017, her cancer care is at [facility] in [place]. - Past Medical/Social History Past Medical History Cancer: Breast cancer Other Cancer History: PRECANCEROUS CELLS ON CERVIX 2015 Social History Smoking Status Never smoker Review of Systems Constitutional:: Reports: Fatigue - Chronic Genitourinary: Reports: Menorrhagia Vital Signs Height 5 ft 9 in Weight: 71.668 kg Weight in Pounds 158.0 lbs BMI 25.4 Pulse Ox 100 - Physical Exam General: Alert, Oriented x3, No apparent distress, - - ECOG 0-1 Laboratory Data: Laboratory Tests WBC WBC 4.5 Hgb 9.2 L 11.9 L WBC WBC Hgb Hct MCV Plt Count Absolute Neuts (auto) Creatinine Iron TIBC Iron Saturation 10.2 L Ferritin 7 L Assessment and Plan 33-year-old female of ancestry with chronic fatigue and a chronic microcytic anemia consistent with: #1 chronic iron deficiency anemia due to heavy menstrual losses, and occasional hemorrhoidal bleed. She has not tolerated oral iron well due to GI side effect, constipation aggravating her hemorrhoidal bleed. She did receive IV iron in May 2018 with improvement. #2. Alpha thalassemia trait by history. Recommendations: #1 Advised to continue oral iron supplement 1 tablet daily (not compliant, using natural products and a lot of greens) till menopause. #2 Supplement with IV iron as guided by blood work. Her iron profile September 2018 shows residual iron deficiency and therefore will receive Venofer 300 mg IV x3 doses and follow-up in 3 months. #3 To follow-up with JUKEBOX ROUTE DRIVER for remedy for heavy menses. Patient was seen was her impression and recommendation discussed follow-up in 3 month Primary Care Provider: Sharda Giraldo PA-C Referring Provider: Sharda Giraldo PA-C 10/10/18 1422 <Electronically signed by Jamie Ferreira MD> Date Jamie Ferreira MD Cosigner Signature: Date (if applicable) CC: ONCOLOGY FOLLOW-UP Observed: 10/02/2018 Status: F Source: [place] VISIT 1:34 PM [facility] REPOSITORY [facility] Medical Records Department [address] [place] [address] [place] [address] Oncology Follow-Up Visit 10/02/18 1319 MR#: [id number] Acct: [id number] Name: CASSIE HILL Rep #: [id number] : 1985 33 From: J Luis Reza DO PCP: Sharda Giraldo PA-C Status: REG RCR Y Location: [facility] Date of Service: 10/02/18 Last Clinic Visit: 07/10/18 Diagnosis: Cassie Hill is a 32-year-old premenopausal female clinical stage IIA-IIIA (oT2g-F4 cN1 (f) M0, ypT1b ypN1a M0) high-grade invasive ductal carcinoma (ER >95%, KS 38%, Her2 0 IHC) of the right breast upper outer quadrant status post confirmatory biopsy of the breast tumor as well as 1 of the abnormal appearing right axillary lymph nodes, neoadjuvant chemotherapy consisting of ddAC x 4 cycles followed by dd paclitaxel x 1 cycle and weekly paclitaxel for 7 weeks (dose dense switched due to toxicity and weekly stopped 2 weeks early due to infusion reaction), and bilateral nipple sparing mastectomy with right SLNBx and completion axillary dissection with immediate bilateral tissue sales promoter placement (02/21/18). From 04/23/18 - 06/05/18 she received 5000 cGy in 25 fractions to the right CW (with sales promoter in place) and Regional Lymph Nodes (undissected axilla, supraclavicular fossa, and internal mammary LNs) followed by a sequential boost consisting of 1000 cGy of 12 MeV electrons in 5 fractions was delivered to the mastectomy scar. History of Present Illness: Patient initially presented with a palpable right breast mass. 07/04/2017: Patient underwent ultrasound of the right breast to evaluate the palpable mass. The ultrasound demonstrated a solid-appearing mass with likely benign morphology, hypoechoic echotexture, anterior depth at the 10 o'clock position measuring 8 x 9 x 4 mm in size. BI-RADS Category 3, recommended six-month follow-up ultrasound of the right breast. [facility] radiology review demonstrated that at the 10 o'clock position there is an oval hypoechoic mass with irregular margins identified measuring 0.9 x 0.4 x 0.8 cm without significant internal vascularity, this mass corresponds to the area of biopsy-proven malignancy per the referring physician. 07/24/2017: Ultrasound-guided biopsy of the right breast mass was performed. Pathology demonstrated evidence for grade 3 invasive ductal carcinoma (ER >95%, KS 38%, Her2 0 IHC) associated with focal DCIS. 08/01/2017: Mammogram was completed and showed evidence for diffuse suspicious microcalcifications in the upper outer quadrant of the right breast highly suggestive of malignancy. BI-RADS Category 6. [facility] radiology review showed evidence for extensive pleomorphic calcifications in the entire supra para lateral quadrant of the right breast extending posteriorly to the level of the nipple without evidence of any suspicious masses. 08/04/2017: Breast MRI was performed which demonstrated evidence for asymmetric clumped enhancement in the upper outer quadrant of the right breast extending into the right axillary tail, measurement of this area is difficult due to positioning of the breast and the breast coil however the transverse diameter measures at least 5 cm, there is enhancement adjacent to the pectoralis muscle without evidence of invasion and there are no enlarged lymph nodes on the MRI, there is no abnormal enhancement or masses noted in the left breast. BI-RADS Category 6. [facility] MRI review demonstrated an area of non- mass enhancement extending posteriorly along the axillary tail abutting the prep pectoralis muscle extending approximately 5 cm corresponding to the area of extensive pleomorphic calcifications within the entire superolateral quadrant of the right breast, no suspicious internal mammary or axillary lymph nodes are identified on the right. However, this is a limited MRI of the breast as the disc contained incomplete inclusion of postcontrast fat saturation images. 08/17/2017: Digital diagnostic mammography of the left breast and ultrasound of both breasts were completed. There are no suspicious masses or calcifications identified in the left breast on mammography. On ultrasound there is an oval hypoechoic mass with irregular margins again demonstrated at the 10 o'clock position 8 cm from the nipple measuring 0.9 x 0.4 x 1 cm which corresponds to the mass seen on the outside ultrasound and is consistent with the biopsy-proven malignancy. A smaller similar appearing mass is also demonstrated at the 10 o'clock position 8 cm from the nipple measuring 0.5 x 0.3 x 0.5 cm approximately 2 cm from the index lesion. Evaluation of the right axilla demonstrates at least 2 morphologically abnormal lymph nodes each with 0.3 cm of focal cortical thickening, there are 2 other lymph nodes demonstrated which are morphologically normal. Ultrasound of the left breast demonstrates no sonographic abnormalities to correspond with the questionable finding on MRI. 08/17/2017: Ultrasound biopsy of right axillary lymph node was performed. Pathology demonstrated evidence for metastatic carcinoma (ER >95%, KS 80%, Her2 1+ IHC) 08/28/2017: Port was placed for chemotherapy. 08/30/2017: CT chest abdomen and pelvis with contrast was performed which demonstrated evidence for a punctate density in the lateral right breast which may be a tissue marker, prominent right axillary lymph nodes with some stranding in the right axilla that may relate to lymph node biopsy, and no evidence for metastatic disease. 08/30/2017: Bone scan was performed which showed no evidence of osseous metastatic disease. 11/13/2017: Digital diagnostic mammogram of the right breast was performed within the posterior depth of the right upper outer quadrant there is a ribbon biopsy clip with fine pleomorphic calcifications in a segmental distribution extending posteriorly from the ribbon biopsy clip to the junction of the anterior to middle third of the breast, the extent of calcifications is at least 6 cm in the craniocaudal dimension and 7.5 cm in the anterior posterior dimension. The axillary lymph node biopsy clip is not within the [id number]. Ultrasound of the right breast shows no evidence of the previous identified 2 masses within the breast, the ribbon biopsy clip is not demonstrated by ultrasound. Sonographic evaluation of the right axilla demonstrates multiple normal-appearing lymph nodes with the biopsy clip noted directly adjacent to the biopsied metastatic lymph node in the abnormal cortical thickening of the biopsied axillary lymph node has resolved in the interim. 11/13/2017: Bilateral breast MRI with contrast was performed which demonstrated focal signal void within the upper outer quadrant of the right breast in the axilla correlating with previously placed biopsy clips, no suspicious mass or enhancement is identified, no axillary or internal mammary lymphadenopathy is appreciated, there are no suspicious masses or evidence of enhancement identified in the left breast and no axillary or internal mammary lymphadenopathy on the left. 09/05/2017 - 12/26/2017: Patient was treated with dose dense Adriamycin/Cytoxan 4 cycles followed by a planned 4 cycles of dose dense paclitaxel. The first treatment of paclitaxel was complicated by severe pain requiring hospitalization and treatment was suspended the resumed with weekly paclitaxel for 9 additional weeks planned. However after the seventh weekly paclitaxel she had severe infusion reaction and treatment was discontinued. 02/21/2018: Patient underwent right nipple sparing mastectomy with port removal, right sentinel lymph node biopsy, complete axillary dissection the right axilla, and left prophylactic nipple sparing mastectomy. She underwent breast reconstruction with placement of I.Predictus anatomic textured 300 cc tissue expanders inflated to 360 cc bilaterally and had interpositional AlloDerm graft 4 x 8 cm placed bilaterally. Pathology demonstrated evidence for residual grade 2 invasive ductal carcinoma involving the upper outer quadrant of the right breast measured at 0.9 cm in greatest dimension, LV SI was indeterminant, high- grade DCIS was present with necrosis and extensive intraductal component seen, margins for invasive carcinoma and DCIS were negative, 1 of 9 lymph nodes contained 0.3 cm of metastatic disease and extranodal extension was not identified. Pathologic ypT1b ypN1a. 04/19/2018: Due to patient request for a second opinion she was evaluated by [facility] medical oncology to discuss hormone therapy options. Recommendation was to pursue AI/OS. From 04/23/18 - 06/05/18: Received 5000 cGy in 25 fractions to the right CW (with sales promoter in place) and Regional Lymph Nodes (undissected axilla, supraclavicular fossa, and internal mammary LNs) with a 3D conformal mono-isocentric technique. [id number] was used to improve dose homogeneity. A 0.5 cm thick sticky bolus was applied to the masectomy scar with 2 cm margin daily to improve skin coverage in this area which was confirmed by in vivo dosimetry. A sequential boost consisting of 1000 cGy of 12 MeV electrons in 5 fractions was delivered to the mastectomy scar with margin. This brought the total dose delivered to 6000 cGy in 30 fractions. 07/30/2018: Patient met with [facility] medical oncology for follow- up. Recommendations due to high risk of disease recurrence was to pursue AI/OS. Patient was reluctant in decided against this at the current time, she has pursued alternative methods in [facility]. 09/11/2018: Patient was seen by Occupational Therapy/lymphedema clinic reviewed techniques and exercises to avoid lymphedema and also provided patient with a sleeve for wearing if lymphedema develops or when flying. Radiation Treatment History: 1) From 04/23/18 - 06/05/18: Received 5000 cGy in 25 fractions to the right CW (with sales promoter in place) and Regional Lymph Nodes (undissected axilla, supraclavicular fossa, and internal mammary LNs) with a 3D conformal mono-isocentric technique. [id number] was used to improve dose homogeneity. A 0.5 cm thick sticky bolus was applied to the masectomy scar with 2 cm margin daily to improve skin coverage in this area which was confirmed by in vivo dosimetry. A sequential boost consisting of 1000 cGy of 12 MeV electrons in 5 fractions was delivered to the mastectomy scar with margin. This brought the total dose delivered to 6000 cGy in 30 fractions. no diagnosis of collagen vascular disease, no pacemaker. Interval History: Patient returns for follow-up 4 months after completing adjuvant radiation therapy to the right chest wall and regional lymph nodes. She believes she has continued to heal well from previously noted radiation related toxicities and at this point has some patches of skin discoloration on the right breast but otherwise denies having any pigmentation changes, dryness, rash, itchiness, skin pain. Just over the last couple weeks she has noted some tightness in the right pectoralis muscle and some tenderness with palpation in this area, this pain is relatively mild and she is not taking any pain medications. She was seen by [facility] medical oncology in July to rediscuss options of hormone therapy and she has decided to forego this treatment. Instead she has embarked on holistic approaches and using the [facility] methods, she was in [place] for 3 weeks implementing this strategy. She reports fairly regular energy. She denies having any changes in range of motion involving the right arm and denies having any new swelling in the arm or breast region. She denies having cough, shortness of breath, hemoptysis, chest pain, or swallowing difficulties. She continues to follow closely with her tin can laborer regarding relatively frequent menstrual bleeding, this occurs every 2 weeks. She is also continually being treated for iron deficiency by medical oncology. She denies having headaches, double vision, ataxia, or bone pain. She reports that she is planning to have a breast reconstruction in mid November. I have reviewed the medical, surgical, and other pertinent history in details and have updated medication and allergy information in the electronic medical record. Review of Systems: A 12-point review of systems was completed and was negative except for what is noted in the HPI/Interval History and by the nurse. Height/Weight/BMI: Height: 5 ft 9 in Weight: 158 lbs Vital Signs Temperature 98.2 F 10/02/18 10:46 Temperature Source Oral 10/02/18 10:46 Physical Exam: ECO KAR[place]FSKY SCORE: 100% CONSTITUTIONAL: Well-developed, well-nourished, and in no apparent distress. NECK: No cervical or supraclavicular adenopathy noted. Breast/Axilla: The bilateral breasts were examined in the seated and supine positions. Horizontal mastectomy scars are appreciated on both breasts and the breasts are firm to palpation due to expansion. No palpable breast lesions or axillary lymph nodes are appreciated. There is no wound dehiscence, drainage. There is skin hypopigmentation involving patchy areas of right breast. There is no evidence for desquamation or hyperpigmentation. There are no abnormal appearing lesions on the skin or within either the right or left chest wall area, there are no palpable enlarged lymph nodes in either axilla. There is no evidence of edema. Pectoralis major muscle is relatively tight on the right in somewhat uncomfortable to palpation. Respiratory: Clear to auscultation bilaterally no wheezes, rhonchi, crackles. No increased work of breathing. No cough CV: Regular rate and rhythm with no gallops or rubs. Extremities: Very mildly reduced range of motion in the right arm with abduction over the head, there is clear tightness of the pectoralis muscle. Normal range of motion remaining extremities. Bilateral arm measurements 10 cm above the olecranon were 27 cm in 10 cm below the olecranon were 22 cm. Imaging: As per HPI no new imaging to review Laboratory Data: No recent labs to review Assessment: Cassie Hill is a 32-year-old premenopausal female clinical stage IIA-IIIA ([id number] cN1 (f) M0, ypT1b ypN1a M0) high-grade invasive ductal carcinoma (ER >95%, KS 38%, Her2 0 IHC) of the right breast upper outer quadrant status post confirmatory biopsy of the breast tumor as well as 1 of the abnormal appearing right axillary lymph nodes, neoadjuvant chemotherapy consisting of ddAC x 4 cycles followed by dd paclitaxel x 1 cycle and weekly paclitaxel for 7 weeks (dose dense switched due to toxicity and weekly stopped 2 weeks early due to infusion reaction), and bilateral nipple sparing mastectomy with right SLNBx and completion axillary dissection with immediate bilateral tissue sales promoter placement (02/21/18). From 04/23/18 - 06/05/18 she received 5000 cGy in 25 fractions to the right CW (with sales promoter in place) and Regional Lymph Nodes (undissected axilla, supraclavicular fossa, and internal mammary LNs) followed by a sequential boost consisting of 1000 cGy of 12 MeV electrons in 5 fractions was delivered to the mastectomy scar. Patient returns for a four-month follow-up after completing radiation therapy. Clinically she continues to heal from radiation therapy well and has evidence for persistent patchy regions of hypopigmentation but otherwise does not appear to have any residual toxicity from treatment. No evidence for disease is noted on exam. Plan: I reviewed the recommended skin care instructions including using lotion over the treated skin, which she is already doing. I reviewed that the skin may continue to improve in pigmentation over the course of the first year but that is unlikely to change after that. She has decided to decline any kind of hormone therapy after speaking with medical oncology several times as well as her other physicians who have all recommended that she pursue this treatment, her primary concern is reduced quality of life with hormone therapy. She has initiated more holistic approaches to prevent disease recurrence using a Samy treatment approach including multiple supplements, organic fruit/vegetable based diet with no processed foods, as well as other detoxifying strategies. She initiated this strategy in [place] over the last couple months and is planning to continue efforts in her daily life going forward. She reports exercising regularly again and is not having much difficulty. She will plan to have reconstruction of the bilateral breasts on December 18, 2018. Patient will follow-up with me in 4 months for routine exam. She has already been seen by an discharge from the lymphedema clinic and has been educated on prevention of lymphedema and has been fitted for a sleeve. She will continue to follow-up with her tin can laborer and other physicians for other medical problems. She was instructed to call with any further questions or concerns in the interim. J Luis Reza DO, MS Ehs Engineer, Department of Radiation Oncology [facility] 10/02/18 [id number] <Electronically signed by J Luis Reza DO> Date J Luis Reza DO CC: Jamie Ferreira MD Signed CBC W/DIFF, AUTOMATED Collected: 10/02/2018 Status: F Source: [place] 10:16 AM [facility] REPOSITORY Order Comment: Reason for Laboratory Test . TYPE CODE TESTS RESULT OUT OF RANGE REFERENCE UNITS LAB L100.1000 4.4-11.0 K/mm3 Low WBC 3.8 LAB L100.1200 4.2-5.4 M/mm3 Normal RBC 4.84 LAB L100.1300 12.0-15.0 g/dl Low HGB 10.9 LAB L100.1400 37-47 % Low HCT 35.0 LAB L100.1500 81-99 fL Low MCV 72.3 LAB L100.1600 27.0-32.0 pg Low MCH 22.5 LAB L100.1700 32-36 g/gl Low MCHC 31.1 LAB L100.1810 11.6-14.6 % High RDW CV 15.7 LAB L100.1820 35.1-43.9 fl Normal RDW SD 41.8 LAB L100.1900 150-450 K/mm3 Normal PLT 182 LAB L100.2000 6.2-12.0 fl Normal MPV 10.6 LAB L100.2100 47-70 % High NEUT% 73.9 LAB L100.2200 19-41 % Low LY% 15.8 LAB L100.2300 0-10 % Normal MONO% 6.6 LAB L100.2400 0-5 % Normal EO% 3.2 LAB L100.2500 0-1 % Normal BASO% 0.5 LAB L100.2550 0.0-0.9 % Normal IM GRAN % 0.000 Result Comment: IG% - Immature Granulocytes (promyelocytes, myelocytes and metamyelocytes) > 1% indicates that a LEFT SHIFT is Present. LAB L100.2620 2.0-7.7 X10 3/uL Normal Absolute Neut 2.8 LAB L100.2720 0.83-4.51 X10 3/ul Low Absolute Lymph 0.60 LAB L100.5500 ADEQ Normal PLT EST ADEQUATE LAB L100.5650 Normal PLT MORPH LARGE Performed By: #### L100.0100 #### [facility] [address] [place], [place], [address] IRON+IRON BINDING Collected: 10/02/2018 Status: F Source: [facility] 10:16 AM [facility] REPOSITORY Order Comment: Reason for Laboratory Test . TYPE CODE TESTS RESULT OUT OF RANGE REFERENCE UNITS LAB L503.6075 250-450 ug/dL TIBC Normal 411 LAB L503.6150 50-170 ug/dL Low IRON 42 LAB L503.6250 15.0-55.0 % Low IRON SATURATION 10.2 Performed By: #### L503.6030, L503.6550 #### [facility] [address] [facility] [address] FERRITIN Collected: 10/02/2018 Status: F Source: [place] 10:16 AM [facility] REPOSITORY Order Comment: Reason for Laboratory Test . TYPE CODE TESTS RESULT OUT OF REFERENCE UNITS RANGE LAB L503.6550 8-252 ng/mL Low FERRITIN 7 Performed By: #### L503.6030, L503.6550 #### [facility] [address] [place], [place], [address] FOLLOW UP (BREAST Observed: 10/01/2018 Status: UNK Source: [facility] 4:28 PM [facility] Chief Complaint Visit For: Other Surgical follow up History of Present Illness Cassie Hill is a 33 year old AA female who returns to the breast center today for a 6 month follow up from right nipple sparing mastectomy, magseed localized sentinel lymph node biopsy with completio n axillary node dissection and left prophylactic nipple sparing mastectomy. Bilateral stage I tissue sales promoter reconstruction (Dr. 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 Final pathology demonstrated left breast benign tissue. Right sentinel lymph node metastatic carcinom a present in one lymph node (0/1), no extranodal extension noted. 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 9cm, completely excised with negative margins. [id number] The patient completed adjuvant radiation in [place] mid May 2018. She is currently being followed at [facility]) which is closer to her home. Patient was offered hormonal therapy for 1 0 years and is still deciding on treatment course; she verbalized needing time for her body to recover from all the treatments. Plan for second stage reconstruction possibly in November 2018. She denies feeling a lump or mass in either breast. Review of Systems GENERAL: Denies fatigue, weight loss/weight gain, weakness or malaise. HEENT: Denies changes in hearing or vision. Denies blurred vision or diplopia. Denies nose bleeds. Denies neck pain. CARDIOVASCULAR: Denies chest pain or palpitations. Denies lower extremity edema. RESPIRATORY: Denies cough, wheezing and shortness of breath. GASTROINTESTINAL: Denies anorexia, nausea and vomiting. Denies abdominal pain, constipation and diarrhea. NEUROLOGIC: Denies headaches or seizures. Denies dizziness, numbness and tingling. SKIN: Denies skin lesions, rash and itching. BREAST: See HPI. MUSCULOSKELETAL: Denies joint pain or stiffness. Denies limb weakness. Denies swelling. HEMATOLOGIC/LYMPHATIC: Denies swollen glands. Denies easy bleeding or bruising. Denies blood clots. Denies anemia. PSYCHIATRIC: Denies anxiety. Denies depression. All other reviewed and negative other than HPI. 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.46) (D56.3) Breast cancer metastasized to axillary lymph node, right (174.9,196.3) (C50.911,C77.3) Breast cancer, right breast (174.9) (C50.911) Past Medical History History of chemotherapy (V87.41) (Z92.21) History of fatigue (V13.89) (Z87.898) History of malignant neoplasm of breast (V10.3) (Z85.3) History of scoliosis (V13.59) (Z87.39) History of Pelvic pain in female (625.9) (R10.2) Surgical History History of Breast Reconstruction With Tissue Bioinformatics Team Member Bilateral History of Breast Surgery Modified Radical Mastectomy History of Section Low Transverse 2008 and 2013 History of Ovarian Cystectomy History of Simple Mastectomy Left Breast History of Spine Repair Family History Family history of hypertension (V17.49) (Z82.49) Family history of skin cancer (V16.8) (Z80.8) Family history of asthma (V17.5) (Z82.5) Family history of diabetes mellitus (V18.0) (Z83.3) Family history of malignant neoplasm of female breast (V16.3) (Z80.3) Social History Always uses seat belt Feels safe at home Non-smoker (V49.89) (Z78.9) Occupation electronics instructor Allergies No Known Drug Allergies Recorded By: Raissa Curiel; 08/16/2017 10:14:20 AM Current Meds Digestive Enzymes 19-27.5-5 MG CHEW; Therapy: (Recorded:17Aug2017) to Recorded Dispense: 0 Days ; #: Sufficient; Refill: 0; NADINE = N; Record; Last Updated By: Marie Hand; 08/17/2017 10:58:46 AM Pro-biotic Blend Oral Capsule; Therapy: (Recorded:17Aug2017) to Recorded Dispense: 0 Days ; #: Sufficient; Refill: 0; NADINE = N; Record; Last Updated By: Marie Hand; 08/17/2017 10:58:46 AM Vitals L-Dex Vitals Recorded: 81Bsb3857 10:28AM Heart Rate72 Ekushexd551 Hnbeyjxzx51 Height5 ft 8.75 in Rwreqk548 lb BMI Xgzdagecmn95.91 BSA Calculated1.84 Physical Exam General: Otherwise healthy appearing. Patient is in no acute distress. HEENT: Conjunctivae are well colored and sclerae nonicteric. Neck is supple, trachea midline. No lymphadenopathy or thyromegaly. Chest: Respiratory rate and effort normal. Breast: Exam performed in sitting and supine positions. Bilateral well healed mastectomy incisions with palpable tissue expanders in place. Right breast with areas of hypopigmentation. Abdomen: Abdomen is non-distended, non-tender to palpation. Extremities: Extremities are atraumatic. There is no edema. Neurologic: Neurologically intact. Alert and oriented. Lymphatics: Supraclavicular and infraclavicular areas are free no adenopathy appreciated. Axillae are negative bilaterally. Results/Data Surgical [id number] 10:53Lalitha Warner Test NameResultFlagReference Case Surgical Pathology(Report) Name CASSIE HILL Pathologist: ALBERTO TRIPLETT MD Date of Procedure: 02/21/2018 Date Received: 02/21/2018 D ate Reported 02/27/2018 Submitting Physician: LALITHA MATHIS MD Location: [facility] External # [id number] FINAL DIAGNOSIS A. LEFT BREAST NIPPLE CORE, BIOPSY : --BENIGN BREAST TISSUE. B. LEFT BREAST, SKIN AND NIPPLE SPARING MASTECTOMY: --BENIGN BREAST TISSUE. C. RIGHT SENTINEL LYMPH NODE #1, EXCISION: --METASTATIC CARCINOMA PRESENT IN ONE LYMPH NODE (1/ ), SEE NOTE. --PREVIOUS BIOPSY SITE CHANGES. Note: The metastatic carcinoma measures up to 0.3 cm in greatest dimension. No extranodal extension is identified. D. RIGHT SENTINEL LYMPH NODE #2, EXCI RAHEL: --TWO LYMPH NODES, NO MALIGNANCY IDENTIFIED (0/2). E. RIGHT NIPPLE CORE, BIOPSY: --BENIGN BREAST TISSUE. F. RIGHT AXILLARY CONTENTS, EXCISION: --SIX LYMPH NODES, NO MALIGNANCY IDENTIFIED (0/6) . G. RIGHT BREAST, SKIN AND NIPPLE SPARING MASTECTOMY: --INVASIVE DUCTAL CARCINOMA PRESENT AFTER NEOADJUVANT CHEMOTHERAPY. --EXTENSIVE DUCTAL CARCINOMA IN SITU WITH ASSOCIATED CALCIFICATIONS. --SEE SY NOPTIC REPORT. H. RIGHT BREAST, ANTERIOR LATERAL MARGIN NEW MARGIN, EXCISION: --BENIGN FIBROADIPOSE TISSUE. I. MEDIPORT-EXPLANT: --GROSS EXAMINATION ONLY. The gross and/or microscopic findings wer e reviewed in conjunction with pathology resident, Loly Valle DO. CANCER SUMMARY REPORT Invasive Breast Cancer Sta ging According to [place] Joint Committee on Cancer Staging Manual 8th Edition Macroscopic: Specimen: Breast Procedure: Total mastectomy Lymph node sampling: Parlin lymph node(s) and axillar y dissection Specimen Integrity: Multiple designated specimens Specimen Laterality: Right Specimen Size: Total mastectomy Tumor site: Upper outer quadrant Tumor size: Greatest dimension 0.9 cm Macroscopic and Microscopic Extent of Tumor: Tumor focality: Single focus of invasive carcinoma Skin and Nipple: No skin or nipple present Skeletal muscle: No skeletal muscle present Histolo gic Type: Invasive ductal carcinoma Histologic grade: Shelby Histologic Score: Tubule Formation: Minimal less than 10 % (score = 3) Nuclear pleomorphism: Marked increase in size (score = 3) Mitotic count: 0 to 5 mitoses per 10 HPF (score = 1) Total Shelby Score: Grade II: 6 - 7 points Lymphatic Vessel invasion: Indeterminate Ductal Carcinoma In Situ: Present Nuclear Grad e: High Architectural patterns: Solid and Cribriform Necrosis: Present Extensive Intraductal Component (EIC): Present Lobular Carcinoma in Situ: Absent Microcalcifications: Pre sent in DCIS Margins: Invasive Carcinoma: Negative Ductal Carcinoma In situ: Negative Extent of Invasion: TNM descriptors: y (post-treatment) Primary Tumor (pT): pT1b: Tumor more than 0.5 cm but not more than 1.0 cm in greatest dimension Lymph nodes: Number Examined: 9 Number with macrometastases (>0.2 cm): 1 Number with micrometastases (>0.2 mm) to 0.2 cm and/or >200 ce lls): 0 Number with isolated tumor cells (<= 0.2 mm and <= 200 cells): 0 Size of largest metastasis: 0.3 cm Extranodal extension: Not identified Regional Lymph Nodes (pN): pN1a: Metasta sis in 1-3 axillary lymph nodes, at least one metastasis larger than 2 mm Distant metastasis (pM): pM: Unknown Estrogen Receptor: See prior report: [id number] Progesterone Receptor: See prior repor t: [id number] HER2: See prior report: [id number] Biopsy site change: Yes Additional pathologic findings: Atypical ductal hyperplasia Comment: Only minimal therapy related changes are present in the breast tissue and involved lymph node. The uninvolved lymph nodes are unremarkable. [facility] Breast: Invasive Additional Testing: Tumor Block: G1 Electronically Signed Out By ALBERTO TRIPLETT MD/CHARLY By the signature on this report, the individual or group listed as making the Final Interpretation/Diagnosis certifies that they have reviewed this case. Intraoperative Consultation: C: RIGHT SENTINEL LYMPH NODE #1 Frozen Section 1: Date Ordered: 02/21/2018 11:27 Date Received: 02/21/2018 11:27 Date Called: 02/21/2018 11:31 Intraoperative Diagnosis: Positive for metastatic carcinoma. Intraoperative Consult Pathologist(s): MIRIAM MOSER MD, PhD (P) D: RIGHT SENTINEL LYMPH NODE #2 Frozen Section 1: Date Ordered: 02/21/2018 11:31 Date Received: 02/21/2018 11:31 Date Called: 02/21/2018 11:51 Intraoperative Diagnosis: Two lymph nodes negative for metastatic carcinoma in planes of section examined. Intraoperative Consult Pathologist(s): MIRIAM MOSER MD, PhD (P) [facility] [place]/02/22/2018 Clinical History: Breast cancer Specimens Submitted As: A: LEFT BREAST NIPPLE CORE B: LEFT BREAST C: RIGHT SENTINEL LYMPH NODE #1 D: RIGHT SENTINEL LYMPH NODE #2 E: RIGHT NIPPLE CRE F: AXILLARY CONTENTS G: RIGHT BREAST H: RIGHT BREAST ANTERIOR LATERAL MARGIN NEW MARGIN I: MEDIPORT-EXPLANT Other Case Numbers [id number] Gross Description: A: Received in formalin, labeled with the patient's name and hospital number and A. Left nipple breast core, is a segment of fibrofatty tissue measuring 1.0 x 0.5 x 0.2 cm. The specimen is submitted in toto in one cassette. CKG B: Received in formalin, labeled with the patient's name and hospital number and B. left breast, is left mastectomy specimen, 14.0 [superior inferior] x 12.4 [medial lateral] x 2.3 [anterior posterior] cm and weighs 251.88 grams. A skin ellipse is not present. The specimen is orie nted with a short superior and a long lateral stitch. The specimen is inked in the following manner: anterior yellow and posterior black. Cross sections reveal lobulated fibrofatty tissue. No gross lesi ons are identified. Multiple cross sections through the axillary-most end does not reveal the presence of lymph nodes. Volunteer Services Specialist sections are submitted in 4 cassettes. CK NOTE: Ischemia time: 111 7. This specimen was placed into formalin at: Not provided. C: Received fresh for an intra-operative consultation, labeled with the patient's name, number, and C. right sentinel lymph node, is a frag ment of yellow adipose tissue measuring 3.5 x 2.0 x 1.7 cm. The specimen is previously stained blue. The specimen is dissected. Biopsy site with biopsy clip is present. A single lymph node is identified measuring 2.5 cm in greatest dimension. The lymph node is bisected. A touch preparation is made. The lymph node is entirely submitted for frozen section into one cassette. The specimen is entirely subm itted into two cassettes. XL Summary of cassettes:C1: Frozen section, bisected lymph node C2: Remaining fat D: Received fresh for an intra-operative consultation, labeled with the patient's name, numb er, and D. right sentinel lymph node 2, is a fragment of yellow adipose tissue measuring 2.0 x 1.5 x 0.9 cm. The specimen is dissected. Two lymph nodes are identified measuring 0.7 cm and 0.6 cm in gr eatest dimension. The lymph nodes are entirely submitted for frozen section into one cassette. The specimen is entirely submitted into two cassettes. XL Summary of cassettes:D1: Frozen section, two lym ph nodes D2: Remaining fat E: Received in formalin, labeled with the patient's name and hospital number, is a segment of fibrofatty tissue measuring 1.0 x 0.5 x 0.3 cm. The specimen is submitted in tot o in one cassette. CKG F: Received in formalin, labeled with the patient's name and hospital number and F. Right axillary contents, are multiple segments of yellow fibroadipose soft tissue aggregatin g to 8.2 x 5.6 x 1.2 cm. Upon palpation, multiple possible lymph nodes are identified ranging in size from 0.2 cm to 1.2 cm. The possible lymph nodes are entirely submitted in 3 cassettes. CKG G: Rece ived in formalin, labeled with the patient's name and hospital number and G. right breast, short superior, long lateral, white is nipple, is right mastectomy specimen, 15.0 [superior inferior] x 14.1 [medial lateral] x 2.3 [anterior posterior] cm and weighs 251.11 grams. A skin ellipse is not present. The specimen is oriented with a white stitch at the nipple, short superior and a long lateral stitc h. The specimen is inked in the following manner: anterior yellow and posterior black. Cross sections reveal a firm, pisano-white mass, 0.6 x 0.2 x 0.2 cm, in the upper outer quadrant. The mass is 2.0 cm f rom the anterior margin, 0.6 cm from the posterior margin, 5.0 cm from the superior margin, 5.2 cm from the inferior margin, 10.6 cm from the medial margin, and 2.3 cm from the lateral margin. The remai nder of the breast parenchyma is yellow-white. No other lesions are identified. Multiple cross sections through the axillary-most end does not reveal the presence of lymph nodes. Volunteer Services Specialist sections are submitted in 11 cassettes. CKG NOTE: Ischemia time: 1227. This specimen was placed into formalin at: 1500. H: Received in formalin, labeled with the patient's name and hospital number and H. rig ht breast anterior lateral margin, Hany marked new margin, is an irregular segment of yellow lobulated fibrofatty tissue, 4.6 x 3.2 x 0.7 cm. The specimen is oriented with a clip on the new margin. In the margin is inked black. The specimen is serially sectioned to reveal a homogeneous fatty cut surface. No lesion is identified. The specimen is entirely submitted in 3 cassettes. CKG I: Received fresh, labeled with the patient's name and hospital number and I. mediport explant, is a plastic single chamber port device measuring 2.8 x 2.2 x 1.2 cm with an attached catheter measuring 14.5 cm in length and 0.2 cm in diameter. Tissue is not received with the specimen. A photograph has been taken. This specimen is for Gross only. CKG Summary of Cassettes: Specimen Label Site B 1 uppe r outer quadrant, ambulatory service representative sections 2 lower outer quadrant, ambulatory service representative sections 3 lower inner quadrant, ambulatory service representative sections 4 upper inner quadrant, ambulatory service representative sect ions F 1 multiple possible lymph nodes 2 2 possible lymph nodes 3 one lymph node, serially sectioned G 1 mass, entirely submitted 2-6 areas surrounding the mass, represe ntative sections 7 upper outer quadrant, ambulatory service representative sections 8 lower outer quadrant, ambulatory service representative sections 9 lower inner quadrant, ambulatory service representative sections 10 upper inn er quadrant, ambulatory service representative sections 11 nipple area ckg/02/22/2018 Surgical [id number] 12:00Lalitha Warner Test NameResultFlagReference [facility] Surgical Pathology(Report) Pathologist: MIRIAM MOSER MD, PhD Date of Procedure: 02/21/2018 Date Received: 02/21/2018 Date Reported 02/22/2018 Submitting Physician: LALITHA MATHIS MD Location : [facility] FINAL DIAGNOSIS A. LEFT BREAST NIPPLE CORE: -- SEE NOTE AND SEPARATE SURGICAL PATHOLOGY REPORT. Note: This part was sent directly to [facility] Department of Pathology for further processing and interpretation. Final diagnosis will be issued as a separate report. The original pathology report will be kept on file in the [facility] Department of Pathology; copies will be distributed as appropriate. B. LEFT BREAST-SHORT SUPERIOR, LONG LATERAL, WHITE ANTERIOR: -- SEE NOTE AND SEPARATE SURGICAL PATHOLOGY R EPORT. Note: This part was sent directly to [facility] Department of Pathology for further processing and interpretation. Final diagnosis will be issued as a separat e report. The original pathology report will be kept on file in the [facility] Department of Pathology; copies will be distributed as appropriate. C. RIGHT SENTINEL LYMPH NODE: -- INTRAOPER ATIVE REPORT ONLY. -- SEE NOTE AND SEPARATE SURGICAL PATHOLOGY REPORT. Note: This part was sent directly to [facility] Department of Pathology for further processing and interpretation. Final diagnosis will be issued as a separate report. The original pathology report will be kept on file in the [facility] Department of Pathology; copies will be distribut ed as appropriate. D. RIGHT SENTINEL LYMPH NODE #2: -- INTRAOPERATIVE REPORT ONLY. -- SEE NOTE AND SEPARATE SURGICAL PATHOLOGY REPORT. Note: This part was sent directly to [facility] Department of Pathology for further processing and interpretation. Final diagnosis will be issued as a separate report. The original pathology report will be kept on file in the [facility] Department of Pathology; copies will be distributed as appropriate. E. RIGHT NIPPLE CORE: -- SEE NOTE AND SEPARATE SURGICAL PATHOLOGY REPORT. Note: This part was sent directly to [place] Department of Pathology for further processing and interpretation. Final diagnosis will be issued as a separate report. The original pathology report will b e kept on file in the [facility] Department of Pathology; copies will be distributed as appropriate. F. RIGHT AXILLARY CONTENTS: -- SEE NOTE AND SEPARATE SURGICAL PATHOLOGY REPORT. Note: This part was sent directly to [facility] Department of Pathology for further processing and interpretation. Final diagnosis will be issued as a separate report. The original pathology report will be kept on file in the [facility] Department of Pathology; copies will be distributed as appropriate. G. RIGHT BREAST SHORT-SUPERIOR; LONG LATERAL, WHITE COREY NIPPLE: -- SEE NOTE AND SEPARATE SURGICAL PATHOLOGY REPORT. Note: This part was sent directly to [facility] Department of Pathology for further processing and inter pretation. Final diagnosis will be issued as a separate report. The original pathology report will be kept on file in the [facility] Department of Pathology; copies will be distributed as [employer]issa [employer]. H. RIGHT BREAST-ANTERIOR LATERAL MARGIN-STAPLE COREY NEW MARGIN: -- SEE NOTE AND SEPARATE SURGICAL PATHOLOGY REPORT. Note: This part was sent directly to [facility] Department of Pathology for further processing and interpretation. Final diagnosis will be issued as a separate report. The original pathology report will be kept on file in the [facility] Department of Pathology; copies will be distributed as appropriate. I. MEDIPORT-EXPLANT: -- SEE NOTE AND SEPARATE SURGICAL PATHOLOGY REPORT. Note: This part was sent directly to [facility] Department of Pathology for further processing and interpretation. Final diagnosis will be issued as a separate report. The original pathology report will be kept o n file in the [facility] Department of Pathology; copies will be distributed as appropriate. Electronically Signed Out By MIRIAM MOSER MD, PhD/XLI Intraoperative Co nsultation: C. RIGHT SENTINEL LYMPH NODE: - Positive for metastatic carcinoma. - Biopsy site. XL D. RIGHT SENTINEL LYMPH NODE #2: - Two lymph nodes negative for metastatic carcinoma in planes of sect ion examined. XL Clinical History: Breast cancer A: oob-1053; formalin-1054 B: oob-1117; formalin-1500 E: oob-1143; formalin-1145 F: oob-1227; formalin- 1229 G: oob-1227; formalin-1500 H: oob-1241 ; formalin-1250 Specimens Submitted As: A: LEFT BREAST NIPPLE CORE B: LEFT BREAST- SHORT SUPERIOR, LONG LATERAL, WHITE ANTERIOR C: RIGHT SENTINEL LYMPH NODE D: RIGHT SENTINEL LYMPH NODE #2 E: RIGHT NIPPLE CORE F: RIGHT AXILLARY CONTENTS G: RIGHT BREAST SHORT-SUPERIOR; LONG LATERAL, WHITE COREY NIPPLE H: RIGHT BREAST-ANTERIOR LATERAL MARGIN-STAPLE COREY NEW MARGIN I: MEDIPORT-EXPLANT Gross D escription: C: Received fresh for an intra-operative consultation, labeled with the patient's name, number, and C. right sentinel lymph node, is a fragment of yellow-blue soft tissue measuring 3.5 x 2 .0 x 1.7 cm. The specimen is dissected, revealing a blue-stained lymph node, 2.5 cm in greatest dimension. The lymph node is bisected showing a biopsy site with biopsy clip. A touch preparation is made. The lymph node is entirely submitted for frozen section into one cassette. The specimen is entirely submitted into two cassettes. XL Summary of cassettes:C1: Frozen section, bisected lymph node C2: Re maining fat D: Received fresh for an intra-operative consultation, labeled with the patient's name, number, and D. right sentinel lymph node 2, is a fragment of yellow-pisano soft tissue measuring 2.0 x 1.5 x 0.9 cm. The specimen is dissected. Two small lymph nodes are identified measuring 0.7 cm and 0.6 cm in greatest dimension. The lymph nodes are submitted in toto for frozen section into one casset te. The specimen is entirely submitted into two cassettes. XL Summary of cassettes:D1: Frozen section, two lymph nodes D2: Remaining fat ritu/02/21/2018 [facility] Surgical Pathology Name CASSIE HILL Surgical [id number] 12:00Lalitha Warner Test NameResultFlagReference Case Surgical Pathology(Report) Pathologist: ALBERTO TRIPLETT MD Date of Procedure: 08/25/2017 Date Received: 08/25/2017 Date Reported: 08/29/2017 Submitting Physician: LALITHA MATHIS MD Location: [facility] FINAL DIAGNOSIS [facility], [place], [place] ([phone], 07/24/17). A. RIGHT BREAST, ULTRASOUND GUIDED CORE NEEDLE BIOPSY: --IN VASIVE DUCTAL CARCINOMA, GRADE 3,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 From 04/23/18 - 06/05/18: Received 5000 cGy in 25 fractions to the right CW (with sales promoter in place) and Regional Lymph Nodes (undissected axilla, supraclavicular fossa, and internal mammary LNs) with a 3D conformal mono-isocentric technique. Hoqec-ov-jjaut was used to improve dose homogeneity. A 0.5 cm thick sticky bolus was applied to the masectomy scar with 2 cm margin daily to improve skin coverage in this area which was confirmed by in vivo dosimetry. A sequential boost consisting of 1000 cGy of 12 MeV electrons in 5 fractions was delivered to the mastectomy scar with margin. This brought the total dose delivered to 6000 cGy in 30 fractions. no diagnosis of collagen vascular disease, no pacemaker. Interval History: The patient returns for initial 2 weeks short interval follow- up after completing radiation therapy. She reports that for the first week the skin irritation and peeling intensified especially beneath her right breast and on the lateral aspect of it, essentially around the scar. However in the last week she has noted great improvement in her skin irritation and reports that her skin is no longer peeling. She still does have hypopigmentation changes and some discomfort but this has steadily improved. She denies pain within the breast and denies swelling. She reports pretty good range of motion although she does not think it is completely the same as her left arm. She denies having any lymphedema. She denies having any muscular pain. She believes her energy level has greatly improved as well and most days she feels more energized. She denies ever having any odynophagia or dysphasia. She reports eating a well-balanced healthy diet and has resumed her normal exercise patterns. She denies having any cough, shortness of breath, chest pain or hemoptysis. She denies having headaches, double vision, ataxia, focal weakness/numbness. She does report increased forgetfulness and fogginess with thinking at times. She reports stable weight and normal appetite. She denies having any other problems at this time. I have reviewed the medical, surgical, and other pertinent history in details and have updated medication and allergy information in the electronic medical record. Review of Systems: A 12-point review of systems was completed and was negative except for what is noted in the HPI/Interval History and by the nurse. Height/Weight/BMI: Height: 5 ft 9 in Weight: 165 lbs BMI: 25.4 Vital Signs Temperature 98.1 F 06/19/18 12:55 Temperature Source Oral 06/19/18 12:55 Physical Exam: ECO KARNOFSKY SCORE: 100% CONSTITUTIONAL: Well-developed, well-nourished, and in no apparent distress. NECK: No cervical or supraclavicular adenopathy noted. Breast/Axilla: The bilateral breasts were examined in the seated and supine positions. Horizontal mastectomy scars are appreciated on both breasts and the breasts are firm to palpation due to expansion. No palpable breast lesions or axillary lymph nodes are appreciated. There is no wound dehiscence, drainage. There is skin hypopigmentation involving the right breast and into the axilla. There is no evidence for moist desquamation but there is some evidence for dry desquamation especially under the breast and lateral to the breast. Respirator: Clear to auscultation bilaterally no wheezes, rhonchi, crackles. No increased work of breathing. No cough CV: Regular rate and rhythm with no gallops or rubs. Extremities: Very mildly reduced range of motion in the right arm with abduction over the head, there is clear tightness of the pectoralis muscle. Normal range of motion remaining extremities. Bilateral our measurements 10 cm above the olecranon were 27 cm in 10 cm below the olecranon were 22 cm. Imaging: As per HPI no new imaging to review Laboratory Data: No recent labs to review Assessment: Cassie Hill is a 32-year-old premenopausal female clinical stage IIA-IIIA ([id number] cN1 (f) M0, ypT1b ypN1a M0) high-grade invasive ductal carcinoma (ER >95%, KS 38%, Her2 0 IHC) of the right breast upper outer quadrant status post confirmatory biopsy of the breast tumor as well as 1 of the abnormal appearing right axillary lymph nodes, neoadjuvant chemotherapy consisting of ddAC x 4 cycles followed by dd paclitaxel x 1 cycle and weekly paclitaxel for 7 weeks (dose dense switched due to toxicity and weekly stopped 2 weeks early due to infusion reaction), and bilateral nipple sparing mastectomy with right SLNBx and completion axillary dissection with immediate bilateral tissue sales promoter placement (02/21/18). From 04/23/18 - 06/05/18 she received 5000 cGy in 25 fractions to the right CW (with sales promoter in place) and Regional Lymph Nodes (undissected axilla, supraclavicular fossa, and internal mammary LNs) followed by a sequential boost consisting of 1000 cGy of 12 MeV electrons in 5 fractions was delivered to the mastectomy scar. Patient returns for two-week follow-up after completing radiation therapy. Clinically she has healed very well but still does have some residual skin toxicity including hypopigmentation dry desquamation. No evidence for disease is noted on exam. Plan: I reviewed the recommended skin care instructions. She is unsure about pursuing hormone therapy at this time but is leaning towards a more holistic approach as she thinks she needs time to recover from her treatments before starting anything new. She has not discussed this with her medical oncologist in [place] or at [facility]. I discussed with her the need to strongly consider the risks and benefits to hormone therapy because there are very significant proven benefits and she is very young. She mentioned that she will discuss with her medical oncologist at [facility] in the near future. I reviewed plans for disease surveillance including routine exams every 3-4 months during the first year without completion of routine imaging. She is planning to have breast sales promoter placed in 6-8 months following radiation and she will see her plastic surgeon in follow-up next week. Reviewed the importance of routine exercise program and maintaining a healthy weight as well as recommended that she pursue a plant-based diet. I will plan to have patient follow-up with me in 2 weeks for the routine 1 month follow-up to ensure that all radiation related toxicities are continuing to improve. She was instructed to call with any further questions or concerns in the interim. J Luis Reza DO, MS Ehs Engineer, Department of Radiation Oncology [facility] 06/19/18 2635 <Electronically signed by J Luis Reza DO> Date J Luis Reza DO CC: Signed END OF TREATMENT Observed: 06/06/2018 Status: F Source: [place] SUMMARY 8:22 AM [facility] REPOSITORY [facility] [place] [address] End of Treatment Summary Date of Service: 06/06/18 0800 MR#: [id number] Acct: [id number] Name: CASSIE HILL Rep #: [id number] : 1985 From: J Luis Reza DO Age/Sex: 32/F Location: ONC Status: Signed End of Treatment Summary: Diagnosis: Cassie Hill is a 32-year-old premenopausal female clinical stage IIA-IIIA ([id number] cN1 (f) M0, ypT1b ypN1a M0) high-grade invasive ductal carcinoma (ER >95%, KS 38%, Her2 0 IHC) of the right breast upper outer quadrant status post confirmatory biopsy of the breast tumor as well as 1 of the abnormal appearing right axillary lymph nodes, neoadjuvant chemotherapy consisting of ddAC x 4 cycles followed by dd paclitaxel x 1 cycle and weekly paclitaxel for 7 weeks (dose dense switched due to toxicity and weekly stopped 2 weeks early due to infusion reaction), and bilateral nipple sparing mastectomy with right SLNBx and completion axillary dissection with immediate bilateral tissue sales promoter placement (02/21/18). Oncologic History: Patient initially presented with a palpable right breast mass. 07/04/2017: Patient underwent ultrasound of the right breast to evaluate the palpable mass. The ultrasound demonstrated a solid-appearing mass with likely benign morphology, hypoechoic echotexture, anterior depth at the 10 o'clock position measuring 8 x 9 x 4 mm in size. BI-RADS Category 3, recommended six-month follow-up ultrasound of the right breast. [facility] radiology review demonstrated that at the 10 o'clock position there is an oval hypoechoic mass with irregular margins identified measuring 0.9 x 0.4 x 0.8 cm without significant internal vascularity, this mass corresponds to the area of biopsy-proven malignancy per the referring physician. 07/24/2017: Ultrasound-guided biopsy of the right breast mass was performed. Pathology demonstrated evidence for grade 3 invasive ductal carcinoma (ER >95%, KS 38%, Her2 0 IHC) associated with focal DCIS. 08/01/2017: Mammogram was completed and showed evidence for diffuse suspicious microcalcifications in the upper outer quadrant of the right breast highly suggestive of malignancy. BI-RADS Category 6. [facility] radiology review showed evidence for extensive pleomorphic calcifications in the entire supra para lateral quadrant of the right breast extending posteriorly to the level of the nipple without evidence of any suspicious masses. 08/04/2017: Breast MRI was performed which demonstrated evidence for asymmetric clumped enhancement in the upper outer quadrant of the right breast extending into the right axillary tail, measurement of this area is difficult due to positioning of the breast and the breast coil however the transverse diameter measures at least 5 cm, there is enhancement adjacent to the pectoralis muscle without evidence of invasion and there are no enlarged lymph nodes on the MRI, there is no abnormal enhancement or masses noted in the left breast. BI-RADS Category 6. [facility] MRI review demonstrated an area of non- mass enhancement extending posteriorly along the axillary tail abutting the prep pectoralis muscle extending approximately 5 cm corresponding to the area of extensive pleomorphic calcifications within the entire superolateral quadrant of the right breast, no suspicious internal mammary or axillary lymph nodes are identified on the right. However, this is a limited MRI of the breast as the disc contained incomplete inclusion of postcontrast fat saturation images. 08/17/2017: Digital diagnostic mammography of the left breast and ultrasound of both breasts were completed. There are no suspicious masses or calcifications identified in the left breast on mammography. On ultrasound there is an oval hypoechoic mass with irregular margins again demonstrated at the 10 o'clock position 8 cm from the nipple measuring 0.9 x 0.4 x 1 cm which corresponds to the mass seen on the outside ultrasound and is consistent with the biopsy-proven malignancy. A smaller similar appearing mass is also demonstrated at the 10 o'clock position 8 cm from the nipple measuring 0.5 x 0.3 x 0.5 cm approximately 2 cm from the index lesion. Evaluation of the right axilla demonstrates at least 2 morphologically abnormal lymph nodes each with 0.3 cm of focal cortical thickening, there are 2 other lymph nodes demonstrated which are morphologically normal. Ultrasound of the left breast demonstrates no sonographic abnormalities to correspond with the questionable finding on MRI. 08/17/2017: Ultrasound biopsy of right axillary lymph node was performed. Pathology demonstrated evidence for metastatic carcinoma (ER >95%, KS 80%, Her2 1+ IHC) 08/28/2017: Port was placed for chemotherapy. 08/30/2017: CT chest abdomen and pelvis with contrast was performed which demonstrated evidence for a punctate density in the lateral right breast which may be a tissue marker, prominent right axillary lymph nodes with some stranding in the right axilla that may relate to lymph node biopsy, and no evidence for metastatic disease. 08/30/2017: Bone scan was performed which showed no evidence of osseous metastatic disease. 11/13/2017: Digital diagnostic mammogram of the right breast was performed within the posterior depth of the right upper outer quadrant there is a ribbon biopsy clip with fine pleomorphic calcifications in a segmental distribution extending posteriorly from the ribbon biopsy clip to the junction of the anterior to middle third of the breast, the extent of calcifications is at least 6 cm in the craniocaudal dimension and 7.5 cm in the anterior posterior dimension. The axillary lymph node biopsy clip is not within the [id number]-up-[id number]. Ultrasound of the right breast shows no evidence of the previous identified 2 masses within the breast, the ribbon biopsy clip is not demonstrated by ultrasound. Sonographic evaluation of the right axilla demonstrates multiple normal-appearing lymph nodes with the biopsy clip noted directly adjacent to the biopsied metastatic lymph node in the abnormal cortical thickening of the biopsied axillary lymph node has resolved in the interim. 11/13/2017: Bilateral breast MRI with contrast was performed which demonstrated focal signal void within the upper outer quadrant of the right breast in the axilla correlating with previously placed biopsy clips, no suspicious mass or enhancement is identified, no axillary or internal mammary lymphadenopathy is appreciated, there are no suspicious masses or evidence of enhancement identified in the left breast and no axillary or internal mammary lymphadenopathy on the left. 09/05/2017 - 12/26/2017: Patient was treated with dose dense Adriamycin/Cytoxan 4 cycles followed by a planned 4 cycles of dose dense paclitaxel. The first treatment of paclitaxel was complicated by severe pain requiring hospitalization and treatment was suspended the resumed with weekly paclitaxel for 9 additional weeks planned. However, after the seventh weekly paclitaxel she had severe infusion reaction and treatment was discontinued. 02/21/2018: Patient underwent right nipple sparing mastectomy with port removal, right sentinel lymph node biopsy, complete axillary dissection the right axilla, and left prophylactic nipple sparing mastectomy. She underwent breast reconstruction with placement of [employer] anatomic textured 300 cc tissue expanders inflated to 360 cc bilaterally and had interpositional AlloDerm graft 4 x 8 cm placed bilaterally. Pathology demonstrated evidence for residual grade 2 invasive ductal carcinoma involving the upper outer quadrant of the right breast measured at 0.9 cm in greatest dimension, LVSI was indeterminant, high- grade DCIS was present with necrosis and extensive intraductal component seen, margins for invasive carcinoma and DCIS were negative, 1 of 9 lymph nodes contained 0.3 cm of metastatic disease and extranodal extension was not identified. Pathologic ypT1b ypN1a. The patient completed a course of external beam radiotherapy in our department. This treatment was delivered for curative intent. Treatment was given according to the following parameters: CASSIE HILL received 5000 cGy of mixed 6, 10, and 15 MV photons in 25 fractions to the right CW (with sales promoter in place) and Regional Lymph Nodes (undissected axilla, supraclavicular fossa, and internal mammary LNs) with a 3D conformal mono- isocentric technique. Uqnfq-yu-rrzet was used to improve dose homogeneity. A 0.5 cm thick sticky bolus was applied to the masectomy scar with 2 cm margin daily to improve skin coverage in this area which was confirmed by in vivo dosimetry. A sequential boost consisting of 1000 cGy of 12 MeV electrons in 5 fractions was delivered to the mastectomy scar with margin. This brought the total dose delivered to 6000 cGy in 30 fractions. The patient did not receive concurrent chemotherapy. Date of First Treatment: 04/23/18 Date of Last Treatment: 06/05/18 Total Elapsed Days (including weekend and holidays): 42 Missed Treatments: none Response and Tolerance: The patient tolerated this course of radiotherapy well overall. The following radiation related toxicities developed during the course of radiation therapy: * Grade 2 skin brisk hyperpigmentation with patchy moist desquamation involving the inframammary fold region which was treated with Remedy, Aquaphor/Xylocaine, and Silvadene * Grade 1 fatigue * 4-5/10 pain related to skin treated with ibuprofen prn * Tightness with right arm abduction persisted, this was managed with continued stretches Total weight change during therapy: 3 lbs Disposition: The patient tolerated the planned course of radiation therapy well without unexpected toxicity in an appropriate time course. I will have Cassie follow- up in 4 weeks for a routine visit to assess resolution of radiation toxicity. The patient will maintain scheduled follow-up visits with the other providers. At the end of radiation therapy she had not yet determined which hormone treatment she was going to pursue, and I encouraged her to consider her options and make a decision in the next couple of weeks so this can be initiated in the near future. Skin care instructions were provided and she was instructed to call with any questions or concerns in the interim. If we can provide any further information on this patient's course of care, please do not hesitate to ask. We would like to thank you very much for allowing us to participate in the care of this patient. Sincerely, J Luis Reza DO, MS Ehs Engineer, Department of Radiation Oncology [facility] 06/06/18821 <Electronically signed by J Luis Reza DO> Date J Luis Reza DO Cosigner Signature: Date (if applicable) CC: KATIUSKA Giraldo; Jamie Ferreira MD RADIATION ONCOLOGY Observed: 05/30/2018 Status: F Source: KASSID[place] VISIT 5:18 PM [facility] REPOSITORY [facility] [place] [address] OFFICE VISIT Date of Service: 05/30/18 1712 MR#: [id number] Acct: [id number] Name: CASSIE HILL Rep #: [id number] : 1985 From: J Luis Juaquin DORADO Age/Sex: 32/F Location: OMD Status: Signed Date of Service: 05/30/18 Diagnosis: Cassie Hill is a 32-year-old premenopausal female clinical stage IIA-IIIA ([id number] cN1 (f) M0, ypT1b ypN1a M0) high-grade invasive ductal carcinoma (ER >95%, KS 38%, Her2 0 IHC) of the right breast upper outer quadrant status post confirmatory biopsy of the breast tumor as well as 1 of the abnormal appearing right axillary lymph nodes, neoadjuvant chemotherapy consisting of ddAC x 4 cycles followed by dd paclitaxel x 1 cycle and weekly paclitaxel for 7 weeks (dose dense switched due to toxicity and weekly stopped 2 weeks early due to infusion reaction), and bilateral nipple sparing mastectomy with right SLNBx and completion axillary dissection with immediate bilateral tissue sales promoter placement (02/21/18). Plan was made to pursue adjuvant radiation therapy consisting of 5000 cGy in 25 fractions to the right chest wall/tissue sales promoter and regional lymph nodes including the undissected axilla, supraclavicular region, and internal mammary region. Treatment Data: Treatment Site: Right Chest Wall Current total dose/Total dose planned: 5000 cGy / 5000 cGy; 200 cGy / 1000 cGy Fraction number: ; Chemotherapy: none concurrent, still deciding about hormone therapy Subjective: Patient reports doing well overall. She has noticed some mild degree of fatigue after radiation. Has noted some decreased ROM of RUE but no obvious edema. 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 Evaluated for abnormal vaginal bleeding by her tin can laborer, will be seen again on Monday. Will begin IV iron per medical oncology. Skin: reports erythema, mild peeling inferiorly, discomfort Pain: Mild Swallowing: no odynophagia or dysphagia Energy: increased fatigue Height/Weight/BMI: Height: 5 ft 9 in Weight: 77.247 kg Weight today 167.7 Vital Signs Temperature 98 F 05/29/18 13:03 Temperature Source Temporal Artery 05/29/18 13:03 Objective: Gen: NAD Skin: inframammary skin darkening with small patch of desquamation, Skin darkening over the entire breast and into the axilla. Assessment: Tolerating radiation therapy well overall. All treatment related imaging has been reviewed and approved Doing well except for reduced ROM RUE, noted on daily stretching. Skin hyperpigmentation and discomfort intensifying in the inframammary area Increased fatigue Plan: Continue radiation therapy as planned. She has not tried daily ibuprofen but stated she would begin using to see if it helps reduce her minor ache and limitations in ROM. Prescription for Aquaphor mixed with Xylocaine given for discomfort, will add Silvadene if desquamation worsens Follow-up with other physicians regarding vaginal bleeding and iron deficiency. Follow-up next week or sooner if needed. 05/30/18 1718 <Electronically signed by J Luis Reza DO> Date J Luis Reza DO Cosigner Signature: Date (if applicable) CC: RADIATION ONCOLOGY Observed: 05/23/2018 Status: F Source: ASTATULA VISIT 12:02 PM [facility] REPOSITORY [facility] [address] [place] [id number] OFFICE VISIT Date of Service: 05/23/18 1158 MR#: [id number] Acct: [id number] Name: CASSIE HILL Rep #: [id number] : 1985 From: Mitchell Meehan MD Age/Sex: 32/F Location: OMD Status: Signed Date of Service: 05/23/18 Diagnosis: Cassie Hill is a 32-year-old premenopausal female clinical stage IIA-IIIA (gU9q-L1 cN1 (f) M0, ypT1b ypN1a M0) high-grade invasive ductal carcinoma (ER >95%, KS 38%, Her2 0 IHC) of the right breast upper outer quadrant status post confirmatory biopsy of the breast tumor as well as 1 of the abnormal appearing right axillary lymph nodes, neoadjuvant chemotherapy consisting of ddAC x 4 cycles followed by dd paclitaxel x 1 cycle and weekly paclitaxel for 7 weeks (dose dense switched due to toxicity and weekly stopped 2 weeks early due to infusion reaction), and bilateral nipple sparing mastectomy with right SLNBx and completion axillary dissection with immediate bilateral tissue sales promoter placement (02/21/18). Plan was made to pursue adjuvant radiation therapy consisting of 5000 cGy in 25 fractions to the right chest wall/tissue sales promoter and regional lymph nodes including the undissected axilla, supraclavicular region, and internal mammary region. Treatment Data: Treatment Site: Right Chest Wall Current total dose/Total dose planned: 4400 cGy / 5000 cGy; 0 cGy / 1000 cGy Fraction number: ; 0 / 5 Chemotherapy: none concurrent, still deciding about hormone therapy Subjective: Patient reports doing well overall. She has noticed some mild degree of fatigue after radiation. Has noted some decreased ROM of RUE but no obvious edema. 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 Height/Weight/BMI: Height: 5 ft 9 in Weight: 77.247 kg Weight today 167.7 Vital Signs Temperature 97.6 F L 05/09/18 12:13 Temperature Source Oral 05/09/18 12:13 Objective: Gen: NAD Skin: inframammary skin darkening, no desquamation Assessment: Doing well except for reduced ROM RUE, noted on daily stretching. Plan: Continue XRT. She has not tried daily ibuprofen but stated she would begin using to see if it helps reduce her minor ache and limitations in ROM. I suggested she go gently on her routine, and perhaps with time and ibuprofen she will note improvement. Treatment today: may not occur due to machine fault, will be added to end of her treatment course. Code Visit Rad Onc OTV: [id number] Radiation tx management x5 05/23/18 1202 <Electronically signed by Mitchell Meehan MD> Date Mitchell Meehan MD Cosigner Signature: Date (if applicable) CC: ONCOLOGY VISIT REPORT Observed: 05/17/2018 Status: F Source: [place] 12:29 PM [facility] REPOSITORY [facility] [place] [address] OFFICE VISIT Date of Service: 05/17/18 1136 MR#: [id number] Acct: [id number] Name: CASSIE HILL Rep #: [id number] : 1985 From: Jamie Ferreira MD Age/Sex: 32/F Location: OMD Status: Signed - Problem List (1) Iron deficiency anemia Status: Chronic (2) Thalassemia trait, alpha Status: Chronic - Date of Service Date of Service:: 05/17/18 - Chief Complaint Anemia - History of Present Illness Patient is a 32-year-old female premenopausal of ancestry with chronic anemia. Her anemia had been attributed to chronic iron deficiency due to heavy menses and alpha thalassemia trait (patient reports diagnosis was made in [facility] and then in [facility]. Over the years she has been advised to take oral iron supplement, she has required occasional IV iron last was in 2017 and on occasions had required transfusion was packed red cells due to severe anemia. She has been off her oral iron supplement since her recent diagnosis with right breast cancer in May 2017. Her cancer care had initially been at [facility] and recently transferred to [facility]. Since the purpose of this consultation is her anemia I will defer for the details of her cancer history to her primary oncology team at [facility]. - Interval History Patient's reported that she is feeling more fatigued yet she is taking iron faithfully. She tends to get constipated with oral iron and when this happens her hemorrhoids tend to bleed - Past Medical/Social History Past Medical History Cancer: Breast cancer Other Cancer History: PRECANCEROUS CELLS ON CERVIX 2016 Social History Smoking Status Never smoker Review of Systems Constitutional:: Reports: Fatigue. Denies: Fever, Sweats, Weight loss, Appetite change, Chills Cardiovascular:: Denies: Chest pain, Palpitations, Dyspnea on exertion, Orthopnea, PND, Shortness of breath Respiratory: Denies: Cough, Hemoptysis, Shortness of Breath, Wheezing Gastrointestinal:: Reports: Hematochezia - Occasional from hemorrhoids. Denies: Abdominal pain, Nausea, Vomiting, Diarrhea, Constipation Genitourinary: Reports: Menorrhagia. Denies: Dysuria, Hematuria, Flank pain Musculoskeletal:: Denies: Back pain, Myalgia, Arthralgia Skin: Denies: Rash, Skin Changes, Wounds Neurological:: Denies: Headache, Dizziness, Visual changes, Tinnitus, Hearing loss Psychiatric: Denies: Anxiety, Depression, Homicidal Ideations, Suicidal Ideations Vital Signs Height 5 ft 9 in Weight: 76.063 kg Weight in Pounds 167.7 lbs BMI 25.4 Pulse Ox 100 - Physical Exam General: Alert, Oriented x3, No apparent distress Laboratory Data: Reviewed in EMR Laboratory Tests Iron 24 L TIBC 461 H Iron Saturation 5.2 L 4.3 L Ferritin 9 4 L Assessment and Plan 32-year-old female of ancestry with chronic microcytic anemia consistent with: #1 chronic iron deficiency anemia due to heavy menstrual losses, and occasional hemorrhoidal bleed. Her iron deficiency is worse this month despite patient reporting faithfully taking oral iron. Her ability to take oral iron is however limited by GI side effect, constipation aggravating her hemorrhoidal bleed. #2. Alpha thalassemia trait by history. Recommendations: #1 Continue oral iron supplement at least 1 tablet daily if possible till menopause. #2 Supplement with IV iron. Patient was seen was her impression and recommendation discussed follow-up in 1 month after IV iron load Primary Care Provider: Sharda Giraldo PA-C Referring Provider: Sharda Giraldo PA-C 05/17/18 1229 <Electronically signed by Jamie Ferreira MD> Date Jamie Ferreira MD Cosigner Signature: Date (if applicable) CC: RADIATION ONCOLOGY Observed: 05/16/2018 Status: F Source: ASTATULA VISIT 1:28 PM [facility] REPOSITORY [facility] [place] [address] OFFICE VISIT Date of Service: 05/16/18 1324 MR#: [id number] Acct: [id number] Name: CASSIE HILL Rep #: [id number] : 1985 From: J Luis Reza Age/Sex: 32/F Location: OMD Status: Signed Date of Service: 05/16/18 Diagnosis: Cassie Hill is a 32-year-old premenopausal female clinical stage IIA-IIIA (cP4b-I3 cN1 (f) M0, ypT1b ypN1a M0) high-grade invasive ductal carcinoma (ER >95%, KS 38%, Her2 0 IHC) of the right breast upper outer quadrant status post confirmatory biopsy of the breast tumor as well as 1 of the abnormal appearing right axillary lymph nodes, neoadjuvant chemotherapy consisting of ddAC x 4 cycles followed by dd paclitaxel x 1 cycle and weekly paclitaxel for 7 weeks (dose dense switched due to toxicity and weekly stopped 2 weeks early due to infusion reaction), and bilateral nipple sparing mastectomy with right SLNBx and completion axillary dissection with immediate bilateral tissue sales promoter placement (02/21/18). Plan was made to pursue adjuvant radiation therapy consisting of 5000 cGy in 25 fractions to the right chest wall/tissue sales promoter and regional lymph nodes including the undissected axilla, supraclavicular region, and internal mammary region. Treatment Data: Treatment Site: Right Chest Wall Current total dose/Total dose planned: 3400 cGy / 5000 cGy; 0 cGy / 1000 cGy Fraction number: ; 0 / 5 Chemotherapy: none concurrent, still deciding about hormone therapy Subjective: Patient reports doing well overall. She has noticed some mild degree of fatigue after radiation. Does report having some decreased volume noted in the right sales promoter. Skin: Denies alteration in pigmentation, denies rash Pain: mild in her arm/pectoralis and latissimus area, denies arm swelling, denies breast pain Fatigue: moderate Swallowing: denies any difficulty Cough: none Height/Weight/BMI: Height: 5 ft 9 in Weight: 77.247 kg Vital Signs Temperature 97.6 F L 05/09/18 12:13 Temperature Source Oral 05/09/18 12:13 Objective: Gen: NAD Skin: no hyperpigmentation, peeling, or rash breast: sales promoter has reduced firmness on the right Assessment: Tolerating adjuvant radiation therapy well. All treatment related imaging has been reviewed and approved Remains undecided about which adjuvant hormone treatment she will pursue, she has been evaluated by 2 medical oncologist and has had discussions ranging from tamoxifen to AI/OS Fatigue: Moderate Pain: pectoralis and latissimus tightness and tenderness Plan: Continue radiation therapy as planned. Discussed proper skin care with lotion (Remedy provided) and avoidance of periods of sun exposure to the treatment area Discussed use of stretching and ibuprofen for muscle tightness/inflammation. Observe possible slight alterations in right sales promoter volume, patient will discuss with plastic surgery. All imaging has been appropriate to continue treatment. Follow up next week or sooner if needed. Thank you for allowing me to participate in the management and care of your patient. If I may answer any questions in the interim, please do not hesitate to contact me at any time. J Luis Reza DO, MS Ehs Engineer, Department of Radiation Oncology [facility] 05/16/18 132 <Electronically signed by J Luis Reza DO> Date J Luis Reza DO Cosign Signature: Date (if applicable) CC: IRON+IRON BINDING Collected: 05/15/2018 Status: F [facility]13 AM [facility] REPOSITORY Order Comment: Reason for Laboratory Test . TYPE CODE TESTS RESULT OUT OF REFERENCE UNITS RANGE LAB L503.6075 250-450 ug/dL TIBC High 461 LAB L503.6150 50-170 ug/dL Low IRON 20 LAB L503.6250 15.0-55.0 % Low IRON SATURATION 4.3 Performed By: #### L503.6030, L503.6550, L100.0100 #### [facility] [address] [place], [address] FERRITIN Collected: 05/15/2018 Status: F Source: A[place] 11:13 AM [facility] REPOSITORY Order Comment: Reason for Laboratory Test . TYPE CODE TESTS RESULT OUT OF REFERENCE UNITS RANGE LAB L503.6550 8-252 ng/mL Low FERRITIN 4 Performed By: #### L503.6030, L503.6550, L100.0100 #### [facility] [address] [place], [address] CBC W/DIFF, AUTOMATED Collected: 05/15/2018 Status: F Source: A[place]A 11:13 AM [facility] REPOSITORY Order Comment: Reason for Laboratory Test . TYPE CODE TESTS RESULT OUT OF RANGE REFERENCE UNITS LAB L100.1000 4.4-11.0 K/mm3 Normal WBC 5.0 LAB L100.1200 4.2-5.4 M/mm3 Normal RBC 5.09 LAB L100.1300 12.0-15.0 g/dl Low HGB 10.4 LAB L100.1400 37-47 % Low HCT 33.9 LAB L100.1500 81-99 fL Low MCV 66.6 LAB L100.1600 27.0-32.0 pg Low MCH 20.4 LAB L100.1700 32-36 g/gl Low MCHC 30.7 LAB L100.1810 11.6-14.6 % High RDW CV 16.0 LAB L100.1820 35.1-43.9 fl Normal RDW SD 39.4 LAB L100.1900 150-450 K/mm3 Normal PLT 203 LAB L100.2100 47-70 % High NEUT% 82.4 LAB L100.2200 19-41 % Low LY% 15.6 LAB L100.2300 0-10 % Normal MONO% 1.0 LAB L100.2400 0-5 % Normal EO% 0.8 LAB L100.2500 0-1 % Normal BASO% 0.2 LAB L100.2550 0.0-0.9 % Normal IM GRAN % 0.000 Result Comment: IG% - Immature Granulocytes (promyelocytes, myelocytes and metamyelocytes) > 1% indicates that a LEFT SHIFT is Present. LAB L100.2620 2.0-7.7 X10 3/uL Absolute Neut Normal 4.1 LAB L100.2720 0.83-4.51 X10 3/ul Low Absolute Lymph 0.77 LAB L100.7600 HYPOCHROMASIA Normal 1+ LAB L100.8200 OVALOCYTE Normal RARE Performed By: #### L503.6030, L503.6550, L100.0100 #### [facility] [address] [place], [address] RADIATION ONCOLOGY Observed: 05/09/2018 Status: F Source: ASTATULA VISIT 12:50 PM [facility] REPOSITORY [facility] [address] [place] [address] OFFICE VISIT Date of Service: 05/09/18 1247 MR#: [id number] Acct: [id number] Name: CASSIE HILL Rep #: [id number] : 1985 From: J Luis Reza DO Age/Sex: 32/F Location: D Status: Signed Date of Service: 05/09/18 Diagnosis: Cassie Hill is a 32-year-old premenopausal female clinical stage IIA-IIIA (kP9z-P5 cN1 (f) M0, ypT1b ypN1a M0) high-grade invasive ductal carcinoma (ER >95%, KS 38%, Her2 0 IHC) of the right breast upper outer quadrant status post confirmatory biopsy of the breast tumor as well as 1 of the abnormal appearing right axillary lymph nodes, neoadjuvant chemotherapy consisting of ddAC x 4 cycles followed by dd paclitaxel x 1 cycle and weekly paclitaxel for 7 weeks (dose dense switched due to toxicity and weekly stopped 2 weeks early due to infusion reaction), and bilateral nipple sparing mastectomy with right SLNBx and completion axillary dissection with immediate bilateral tissue sales promoter placement (02/21/18). Plan was made to pursue adjuvant radiation therapy consisting of 5000 cGy in 25 fractions to the right chest wall/tissue sales promoter and regional lymph nodes including the undissected axilla, supraclavicular region, and internal mammary region. Treatment Data: Treatment Site: Right Chest Wall Current total dose/Total dose planned: 2400 cGy / 5000 cGy Fraction number: Chemotherapy: none concurrent, still deciding about hormone therapy Subjective: Patient reports doing well overall. She has noticed some mild degree of fatigue after radiation. Skin: Denies alteration in pigmentation, denies rash Pain: mild in her arm/pectoralis and latissimus area, denies arm swelling, denies breast pain Fatigue: moderate Swallowing: denies any difficulty Cough: none Height/Weight/BMI: Height: 5 ft 9 in Weight: 77.247 kg Vital Signs Temperature 97.6 F L 05/09/18 12:13 Temperature Source Oral 05/09/18 12:13 Objective: Gen: NAD Skin: no hyperpigmentation, peeling, or rash Assessment: Tolerating adjuvant radiation therapy well. All treatment related imaging has been reviewed and approved Remains undecided about which adjuvant hormone treatment she will pursue, she has been evaluated by 2 medical oncologist and has had discussions ranging from tamoxifen to AI/OS Fatigue: Moderate Pain: pectoralis and latissimus tightness and tenderness Plan: Continue radiation therapy as planned. Discussed proper skin care with lotion (Remedy provided) and avoidance of periods of sun exposure to the treatment area Discussed use of stretching, ice, and ibuprofen for muscle tightness/inflammation. Follow up next week or sooner if needed. Thank you for allowing me to participate in the management and care of your patient. If I may answer any questions in the interim, please do not hesitate to contact me at any time. J Luis Reza DO, MS Ehs Engineer, Department of Radiation Oncology [facility] 05/09/18 1250 <Electronically signed by J Luis Reza DO> Date J Luis Reza DO Cosigner Signature: Date (if applicable) CC: CLINIC NOTE - HEME Observed: 05/08/2018 Status: UNK Source: [facility] ONC-FOLLOW UP VISIT 6:53 AM [facility] REPOSIT[facility] This report has been cancelled. RADIATION ONCOLOGY Observed: 05/03/2018 Status: F Source: K[place] VISIT 2:10 PM [facility] REPOSITORY [facility] [place] [address] OFFICE VISIT Date of Service: 05/03/18 1407 MR#: [id number] Acct: [id number] Name: CASSIE HILL Rep #: [id number] : 1985 From: J Luis Reza DO Age/Sex: 32/F Location: OMD Status: Signed Date of Service: 05/03/18 Diagnosis: Cassie Hill is a 32-year-old premenopausal female clinical stage IIA-IIIA (eY1o-D6 cN1 (f) M0, ypT1b ypN1a M0) high-grade invasive ductal carcinoma (ER >95%, KS 38%, Her2 0 IHC) of the right breast upper outer quadrant status post confirmatory biopsy of the breast tumor as well as 1 of the abnormal appearing right axillary lymph nodes, neoadjuvant chemotherapy consisting of ddAC x 4 cycles followed by dd paclitaxel x 1 cycle and weekly paclitaxel for 7 weeks (dose dense switched due to toxicity and weekly stopped 2 weeks early due to infusion reaction), and bilateral nipple sparing mastectomy with right SLNBx and completion axillary dissection with immediate bilateral tissue sales promoter placement (02/21/18). Plan was made to pursue adjuvant radiation therapy consisting of 5000 cGy in 25 fractions to the right chest wall/tissue sales promoter and regional lymph nodes including the undissected axilla, supraclavicular region, and internal mammary region. Treatment Data: Treatment Site: Right Chest Wall Current total dose/Total dose planned: 1600 cGy / 5000 cGy Fraction number: Chemotherapy: none concurrent, still deciding about hormone therapy Subjective: Patient reports doing well overall. She has noticed some mild degree of fatigue after radiation. Skin: Denies alteration in pigmentation, denies rash Pain: mild in her arm/pectoralis and latissimus area, denies arm swelling, denies breast pain Fatigue: mild Swallowing: denies any difficulty Cough: none Height/Weight/BMI: Height: 5 ft 9 in Weight: 77.247 kg Vital Signs Temperature 98.3 F 05/03/18 11:51 Temperature Source Oral 05/03/18 11:51 Objective: Gen: NAD Skin: no hyperpigmentation, peeling, or rash Assessment: Tolerating adjuvant radiation therapy well. All treatment related imaging has been reviewed and approved Remains undecided about which adjuvant hormone treatment she will pursue, she has been evaluated by 2 medical oncologist and has had discussions ranging from tamoxifen to AI/OS Fatigue: Mild Pain: pectoralis and latissimus tightness and tenderness Plan: Continue radiation therapy as planned. Discussed proper skin care with lotion (Remedy provided) and avoidance of periods of sun exposure to the treatment area Discussed use of stretching, ice, and ibuprofen for muscle tightness/inflammation. Follow up next week or sooner if needed. Thank you for allowing me to participate in the management and care of your patient. If I may answer any questions in the interim, please do not hesitate to contact me at any time. J Luis Reza DO, MS Ehs Engineer, Department of Radiation Oncology [facility] 05/03/18 1410 <Electronically signed by J Luis Reza DO> Date J Luis Reza DO Cosigner Signature: Date (if applicable) CC: EMERGENCY REPORT Observed: 04/28/2018 Status: F Source: KENNYELLEN HENRY 7:47 PM [facility] EMERGENCY DEPARTMENT REPORT NAME NUMBER SEX AGE ADMIT DISC TYPE MED.RECORD# SERGIO Figueroa [id number] F 32 11/09/17 11/09/17 Silvia.RAbelardo [id number] ROOM[facility] DATE OF :1985 PHYSICIAN NO.:[id number] PHYSICIAN NAME:TYRON BROCK MD PHYSICIAN:KRISTAL BLANCAS FAMILY PHYSICIAN: KRISTAL BLANCAS HISTORY OF PRESENT ILLNESS: I have spoken to the patient's doctor, and her oncologist is not concerned of the 52,000 white due to the Neulasta and feels it is appropriate and will be down by next week. I reviewed her concerns, her history, and her pain. The doctor is concerned about the level of narcotic and would certainly like her down to at least no more than 5 mg 4 times a day or off of narcotics using Motrin and Neurontin 300 t.i.d. that she would like me to start. EMERGENCY DEPARTMENT COURSE AND TREATMENT: I have discussed all this with the patient and family at length. They are aware of the desire and the need and are in agreement with it as long as her pain is managed. I have asked her to take today and tomorrow to take 10 mg every 4 hours and to take the Neurontin 300 mg 3 times a day, and on Monday try to do 5 mg every 4 hours and use an emergency 5 mg in between if necessary. Hopefully, this will diminish her dosing down to a 16 to 20 mg a day of the oxycodone in conjunction with Neurontin and Motrin. The patient is in agreement to this. Critical care has been given for 35 minutes for mental status change, low blood pressure at one point improved with hydration. DIAGNOSES: 1. Mental status changes secondary to opiate side effect. 2. Breast cancer undergoing chemotherapy. 3. Leukocytosis due to Neulasta. PLAN/DISPOSITION: She is discharged in improved condition. She is awake, alert, and much better at this time. D: Tyron Brock MD TD: 17:26 JOB #: [id number] Electronically signed by: TYRON BROCK MD 04/28/18 19:46 Transcribed by: am 11/10/2017 15:48 Electronically signed by TYRON BROCK MD 04/28/18 19:46 EMERGENCY ROOM REPORT SERGIO Moran [facility] EMERGENCY DEPARTMENT REPORT NAME NUMBER SEX AGE ADMIT DISC TYPE MED.RECORD# SERGIO Figueroa [id number] F 32 11/09/17 11/09/17 E.R. [id number] ROOM:ER-[facility] DATE OF :1985 PHYSICIAN NO.:[id number] PHYSICIAN NAME:TYRON BROCK MD PHYSICIAN:KRISTAL BLANCAS FAMILY PHYSICIAN: KRISTAL BLANCAS EMERGENCY ROOM REPORT SERGIO Figueroa 1 EMERGENCY REPORT Observed: 04/28/2018 Status: F Source: KENNY HENRY 7:47 PM [facility] EMERGENCY DEPARTMENT REPORT NAME NUMBER SEX AGE ADMIT DISC TYPE MED.RECORD# SERGIO Figueroa [id number] F 32 11/09/17 11/09/17 E.R. [id number] ROOM:[facility] DATE OF :1985 PHYSICIAN NO.:[id number] PHYSICIAN NAME:TYRON BROCK MD PHYSICIAN:KRISTAL BLANCAS FAMILY PHYSICIAN: KRISTAL BLANCAS CHIEF COMPLAINT/HISTORY OF PRESENT ILLNESS: This is a 32-year-old black female here for evaluation after having mental status changes and passed out at home The patient has a complicated history of breast cancer undergoing chemotherapy through in [place]. She had been given Taxol and Neulasta, both which can cause bone pain. Just in the last week she has developed pretty severe bony pain. While in the hospital, admitted for this, she was given oxycodone and Dilaudid and did well with Dilaudid. At discharge she was given oxycodone and it was not making her pain better yesterday after discharge. She was told to take three 5 mg tablets every 4 hours instead of every 6 hours. Today, she was not feeling well and at 6 am she had her regular dose. was gone and the patient's mother said that it had been 5 hours. She was given her dose, and at 12:45 she fainted right after saying I don't feel good. For 30 seconds she was out of it and then she returned to her normal. However, she kept saying that she was not feeling well and was sent here for evaluation by ambulance after calling the Oncology team. She denies any fever or chilling. She denies any bloody or black stools or vomiting of blood. No hematuria or dysuria. Her bone pain is still persisting. She was brought in by ambulance and was seen for this. The patient did not have the severe bone pain until the two drugs were given, just recently. REVIEW OF SYSTEMS: Ten systems are considered, reviewed and negative for fever or chilling. No severe headache, blurred vision or double vision. She does have an overall feeling of doom. PHYSICAL EXAMINATION: Vital show an initial vital set with a pulse and pressure that were stable. She was EOMI, WILLIAM. She was hyperventilating mildly. Mother states that she had not been doing that earlier. She was complaining of tingling in both fingers as she was doing that. She is awake and alert. 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 Her chest wall was not sore. There was a port on the right. Her lungs were clear without wheezes, rales or rhonchi. Neck was soft and supple. Her oral exam was unremarkable. Both TMs are normal. The eyes were not injected. Edema to the legs and arms are not noted of severity. Fingers have good range of motion. Her belly was without severe pain on palpation. DIAGNOSTIC DATA: Her CBC, BMP and chest x-ray were obtained as was an EKG. Labs have come back with a WBC of 52.3 up from 36 from a couple of days ago. Hemoglobin 10.5 is stable from August. Platelet count is 356,000. There is a left shift and she did have a recent shot of Neulasta last week. EMERGENCY DEPARTMENT COURSE AND TREATMENT: Treatment included an IV of saline. I gave her one liter wide open since she may not have had as much liquid as yesterday after being discharged. She had previously been on IV fluids. She was then placed on 200 mL/hr. We discussed some oral fluids and some Ativan because of the hyperventilation to see if some of her weakness was related to that. EMERGENCY ROOM REPORT SERGIO Figueroa [address] [place] [address] EMERGENCY DEPARTMENT REPORT NAME NUMBER SEX AGE ADMIT DISC TYPE MED.RECORD# SERGIO Figueroa [id number] F 32 11/09/17 11/09/17 E.RAbelardo [id number] ROOM:- DATE OF :1985 PHYSICIAN NO.:[id number] PHYSICIAN NAME:TYRON BROCK MD PHYSICIAN:KRISTAL BLANCAS FAMILY PHYSICIAN: KRISTAL BLANCAS DIAGNOSES: 1. Bone pain secondary to chemotherapy. 2. Metastatic breast cancer. 3. Severe leukocytosis secondary to Neulasta. 4. Chronic anemia. PLAN/DISPOSITION: The patient at this time is going to be considered to transfer to [facility]. The family has asked, and said they spoke to the oncologist who would like to have her there. We are hoping to have her evaluated for her persistent bone pain. The leukocytosis is likely the medication. The bone pain is likely the chemotherapy, she has been told, and the oxycodone seems to have more hallucinations, nausea and weakness than the Dilaudid previously. Critical care was given for 35 minutes for her weakness, illness. I reviewed an OARRS report and I reviewed her dictations and she just had a large amount of those oxycodone 15s. She has not required any of this until recently. We will consider transfer, awaiting their call at this time. D: Tyron Brock MD TD: 15:40 JOB #: [id number] Electronically signed by: TYRON BROCK MD 04/28/18 19:46 Transcribed by: pamela 11/10/2017 13:36 EMERGENCY ROOM REPORT SERGIO Figueroa 2 [facility] EMERGENCY DEPARTMENT REPORT NAME NUMBER SEX AGE ADMIT DISC TYPE MED.RECORD# SERGIO Figueroa [id number] F 32 11/09/17 11/09/17 EJohn [id number] ROOM:[facility] DATE OF :1985 PHYSICIAN NO.:[id number] PHYSICIAN NAME:TYRON BROCK MD PHYSICIAN:KRISTAL BLANCAS FAMILY PHYSICIAN: KRISTAL BLANCAS EMERGENCY ROOM REPORT SERGIO Figueroa 3 RADIATION ONCOLOGY Observed: 04/25/2018 Status: F Source: [place] VISIT 2:09 PM [facility] REPOSITORY [facility] [address] [place] [id number] OFFICE VISIT Date of Service: 04/25/18 1400 MR#: [id number] Acct: [id number] Name: CASSIE HILL Rep #: [id number] : 1985 From: J Luis Reza DO Age/Sex: 32/F Location: OMD Status: Signed Date of Service: 04/25/18 Diagnosis: Cassie Hill is a 32-year-old premenopausal female clinical stage IIA-IIIA (kT2g-O5 cN1 (f) M0, ypT1b ypN1a M0) high-grade invasive ductal carcinoma (ER >95%, KS 38%, Her2 0 IHC) of the right breast upper outer quadrant status post confirmatory biopsy of the breast tumor as well as 1 of the abnormal appearing right axillary lymph nodes, neoadjuvant chemotherapy consisting of ddAC x 4 cycles followed by dd paclitaxel x 1 cycle and weekly paclitaxel for 7 weeks (dose dense switched due to toxicity and weekly stopped 2 weeks early due to infusion reaction), and bilateral nipple sparing mastectomy with right SLNBx and completion axillary dissection with immediate bilateral tissue sales promoter placement (02/21/18). Plan was made to pursue adjuvant radiation therapy consisting of 5000 cGy in 25 fractions to the right chest wall/tissue sales promoter and regional lymph nodes including the undissected axilla, supraclavicular region, and internal mammary region. Treatment Data: Treatment Site: Right Chest Wall Current total dose/Total dose planned: 600 cGy / 5000 cGy Fraction number: Chemotherapy: none concurrent, still deciding about hormone therapy Subjective: Patient reports doing well overall. She has noticed some mild degree of fatigue after radiation. reports eating and drinking well without difficulty, denies dizziness upon standing. Skin: Denies alteration in pigmentation, denies rash Pain: mild in her arm/pectoralis, denies arm swelling, denies breast pain Fatigue: mild Swallowing: denies any difficulty Height/Weight/BMI: Height: 5 ft 9 in Weight: 77.247 kg Previous/Normal Weight: BMI: 25.4 % Weight Gain/Loss: Vital Signs Temperature 98.1 F 04/25/18 11:55 Temperature Source Oral 04/25/18 11:55 Mild hypotension, asymptomatic and orthostatic pressure was negative Objective: Gen: NAD Skin: no hyperpigmentation, peeling, or rash Assessment: Tolerating adjuvant radiation therapy well. All treatment related imaging has been reviewed and approved Remains undecided about which adjuvant hormone treatment she will pursue, she has been evaluated by 2 medical oncologist and has had discussions ranging from tamoxifen to AI/OS Fatigue: Mild Plan: Continue radiation therapy as planned. Discussed proper skin care with lotion (Remedy provided) and avoidance of periods of sun exposure to the treatment area Follow up next week or sooner if needed. Thank you for allowing me to participate in the management and care of your patient. If I may answer any questions in the interim, please do not hesitate to contact me at any time. J Luis Reza DO, MS Ehs Engineer, Department of Radiation Oncology [facility] 04/25/18 1108 <Electronically signed by J Luis Reza DO> Date J Luis Reza DO Cosigner Signature: Date (if applicable) CC: XR TIBIA AND FIBULA Observed: 04/19/2018 Status: F Source: [facility] LEFT 12:26 PM [facility] REPOSITORY EXAM: XR TIBIA AND FIBULA LEFT, 04/19/2018 12:12 PM COMPARISON: No prior studies available for comparison. CLINICAL INDICATIONS: leg pain , scanlon pain RELEVANT CLINICAL HISTORY: C50.911:Primary invasive malignant neoplasm of female breast, right FINDINGS: 4 images obtained. Soft Tissue: There is no significant soft tissue swelling. Bone: No acute osseous abnormality is identified. The tibia and fibula appear grossly intact. No focal periosteal reaction. Joint: The proximal and distal tibiofibular syndesmosis appear intact. IMPRESSION: Unremarkable study. WITH DIFF SSBC Collected: 04/19/2018 Status: F Source: [facility] 10:22 AM [facility] REPOSITORY TYPE CODE TESTS RESULT OUT OF REFERENCE UNITS RANGE LAB WBC 3.98-10.04 K/uL WBC Count 3.06 Low LAB RBC 3.93-5.22 M/uL RBC Count 4.81 LAB HGB 11.2-15.7 g/dL Hemoglobin 10.7 Low LAB HCT 34.1-44.9 % Hematocrit 34.3 LAB MCV 79.4-94.8 fL Mean Cell 71.3 Low Volume LAB MCH 25.6-32.2 pg Mean Cell 22.2 Low Hgb LAB MCHC 32.2-35.5 g/dL Mean Cell 31.2 Low Hgb Conc LAB RDW 11.7-14.4 % RBC 15.9 High Distribution LAB PLT 182-369 K/uL Platelet 314 Count LAB MPV 9.4-12.3 fL Mean 11.5 Platelet Volume LAB NRBC 0.0-0.2 /100 WBC NUCLEATED 0.0 RBC LAB DTYPE Electronic DIFFERENTIAL TYPE Differential LAB IGRE % IMMATURE 0.3 GRANS % LAB SEGS % NEUTROPHIL 62.7 SEGMENTED LAB LYM % LYMPHOCYTE 25.5 % LAB MON % MONOCYTE % 8.5 LAB EOS % EOSINOPHIL 2.3 % LAB BASO % BASOPHIL % 0.7 LAB IGABS <0.04 K/uL IMMATURE <0.04 GRANS ABSOLUTE LAB SBANS 1.56-6.13 K/uL SEGS + 1.92 Bands,Absolute LAB ALYM 1.18-3.74 K/uL Abs Lymph 0.78 Low LAB AMONO 0.24-0.86 K/uL Abs Shannon 0.26 LAB AEOS <0.37 K/uL Abs Eos 0.07 LAB ABASO <0.09 K/uL Abs Baso <0.04 Performed By: #### TOM, JAVIER #### Pedro CCCT, [facility] [address] [place] [id number] COMP METABOLIC PANEL - Collected: 04/19/2018 Status: F Source: [facility] 10:22 AM [facility] REPOSITORY TYPE CODE TESTS RESULT OUT OF REFERENCE UNITS RANGE LAB NA 133-143 mmol/L Sodium 137 LAB K 3.5-5.0 mmol/L Potassium 4.1 LAB CL 98-108 mmol/L Chloride 106 LAB BUN 7-22 mg/dL BUN 15 LAB CREA 0.50-1.20 mg/dL Creatinine 0.85 LAB GLUC 70-99 mg/dL Glucose 84 LAB BILT <1.5 mg/dL Bilirubin Total 0.7 LAB ALB 3.5-5.0 g/dL Albumin 4.2 LAB TP 6.4-8.3 g/dL Total Protein 7.7 LAB AST 14-40 U/L AST 22 LAB ALP 32-126 U/L Alkaline Phosphatase 67 LAB CA 8.6-10.5 mg/dL Calcium 9.8 LAB CO2 22-30 mmol/L Carbon Dioxide 23 LAB ALT 9-48 U/L ALT 16 LAB GAP 7-17 mmol/L Anion Gap 12 LAB GFR >60 mL/min/1.7 3sqM Est GFR,non >60 LAB GFRA >60 mL/min/1.7 3sqM Est GFR, >60 LAB OSMC 278-305 mOsm/kg Osmolality (Calc) 287 Performed By: #### TOM, JAVIER #### Pedro CCCT, [facility] [address] [place], [place] [address] ONCOLOGY HISTORY AND Observed: 04/17/2018 Status: F Source: [place] PHYSICAL 4:10 PM [facility] REPOSITORY [facility] Medical Records Department [address] [place] [address] History and Physical 04/17/18 1518 MR#: [id number] Acct: [id number] Name: CASSIE HILL Rep #: [id number] : 1985 32 From: Jamie Ferreira MD PCP: Sharda Giraldo PA-C Status: REG RCR Y Location: OMD - Problem List (1) Iron deficiency anemia Status: Chronic (2) Thalassemia trait, alpha Status: Chronic Subjective Date of Service:: 04/17/18 Chief Complaint: Fatigue, anemia, chronic History of Present Illness: Patient is a 32-year-old female premenopausal of ancestry with chronic anemia. Her anemia had been attributed to chronic iron deficiency due to heavy menses and alpha thalassemia trait (patient reports diagnosis was made in [facility] and then in [facility]. Over the years she has been advised to take oral iron supplement, she has required occasional IV iron last was in 2017 and on occasions had required transfusion was packed red cells due to severe anemia. She has been off her oral iron supplement since her recent diagnosis with right breast cancer in May 2017. Her cancer care had initially been at [facility] and recently transferred to [facility]. Since the purpose of this consultation is her anemia I will defer for the details of her cancer history to her primary oncology team at [facility]. Power of Pediatric Speech Therapist: No Living Will: No Health History: Past Medical History Cancer: Breast cancer Other Cancer History: PRECANCEROUS CELLS ON CERVIX 2015 Past Medical History (Last Updated 02/13/18 @ 14:47 by Tari Jaffe RN) Alpha-thalassemia (Acute) Anemia (Acute) Breast cancer (Acute) Heart murmur (Acute) Scoliosis of cervical spine (Acute) Past Surgical History (Last Updated 02/13/18 @ 14:46 by Tari Jaffe RN) H/O oophorectomy (Acute) Family History (Last Updated 02/13/18 @ 14:49 by Tari Jaffe RN) Aunt Breast cancer Hypertension Mother Hypertension Grandmother Cervical cancer Allergies/Adverse Reactions: Allergy/AdvReac Type Severity Reaction Status Date / Time morphine AdvReac Mild Rash Verified 03/15/18 11:51 taxol AdvReac Shortness Uncoded 03/15/18 11:52 Risk Factors Social History Smoking Status Never smoker Tobacco Risk Data: Tobacco Risk Smoking Status Never smoker Type of tobacco: Smokeless tobacco usage: Items/Day: Year started: Years used: Counseled to quit/cut down: Reason for no counseling performed: Reason for no pharmacotherapy: Tobacco use comments: Passive smoke exposure: Substance Risk Drug use: No Caffeine use [drinks/day]: Alcohol use: No Type of alcohol: Drinks per day: Has patient felt the need to cut down: Has the patient been annoyed by complaints: Has the patient felt guilty about drinking: Has the patient needed an eye unix analyst in the mornings: Comments: BMI: 25.4 Date of last mammogram:: 11/30/17 Date of last PAP smear:: 10/30/15 Review of Systems Constitutional:: Reports: Weakness, Fatigue - Chronic. Denies: Fever, Sweats, Weight loss, Appetite change, Chills Cardiovascular:: Reports: Dyspnea on exertion. Denies: Chest pain, Palpitations, Orthopnea, PND, Shortness of breath Respiratory: Reports: Shortness of breath upon exertion. Denies: Cough, Hemoptysis, Shortness of Breath, Wheezing Gastrointestinal:: Denies: Abdominal pain, Nausea, Vomiting, Diarrhea, Constipation, Hematochezia Genitourinary: Reports: Menorrhagia - Patient's reports that her menses temporarily ceased during and shortly after finishing her chemotherapy in November 2017. She has resumed heavy menstrual losses February 2018. Denies: Dysuria, Hematuria, Flank pain Musculoskeletal:: Denies: Back pain, Myalgia, Arthralgia Skin: Denies: Rash, Skin Changes, Wounds Neurological:: Denies: Headache, Dizziness, Visual changes, Tinnitus, Hearing loss Psychiatric: Denies: Anxiety, Depression, Homicidal Ideations, Suicidal Ideations Vital Signs Height 5 ft 9 in Weight: 77.428 kg Weight in Pounds 170.7 lbs BMI 25.4 Pulse Ox 100 - Physical Exam General: Alert, Oriented x3, No apparent distress, - - ECOG 1 No notable pallor or scleral icterus HEENT: Atraumatic, PERRLA, EOMI, Normocephalic Oropharynx:: Dry mucosa Neck:: Supple, Trachea midline. Negative for: JVD, bilateral Cardiac:: Regular rate, Regular rhythm, Normal S1, Normal S2. Negative for: Murmur Lungs: Clear to auscultation, Excusion symmetrical. Negative for: Rhonchi, Wheezes Abdomen:: Soft, Non-tender, Non-distended. Negative for: Hepatosplenomegaly Extremities:: Negative for: Cyanosis, Edema Neurological: Neuro grossly intact Skin:: Negative for: Lesions, Rash, Petechiae, Ecchymosis Psychiatric:: Appropriate affect, Euthymic Lymphatics:: Negative for: Cervical lymphadenopathy, Supraclavicular lymphadenopathy Laboratory Data: Laboratory Tests Assessment and Plan 32-year-old female of ancestry with chronic microcytic anemia consistent with: #1 chronic iron deficiency anemia due to heavy menstrual losses. #2. Alpha thalassemia trait by history. Her most recent bloodwork of March 2018 shows mild residual anemia with a hemoglobin of 11.9 g per DL and low iron stores with a ferritin of 9. Recommendations: #1 resume oral iron supplement at least 1 tablet daily till menopause. #2 We will follow-up for adequacy of oral replacement and if needed we will supplement with IV iron. Patient was seen was her impression and recommendation discussed follow-up in 1 month with a CBC and iron profile Medications: Prescriptions This Visit Medication Instructions Recorded Acetaminophen [Tylenol Extra 500 - 1,000 mg PO Q6H PRN PRN 03/15/18 Strength] Diazepam [Valium] 1 mg PO QHS 03/15/18 Primary Care Provider: Sharda Giraldo PA-C Referring Provider: Sharda Giraldo PA-C 04/17/18 1580 <Electronically signed by Jamie Ferreira MD> Date Jamie Ferreira MD Cosigner Signature: Date (if applicable) CC: KATIUSKA Giraldo; sharda Giraldo; Jamie Ferreira MD; J Luis Reza DO Signed COMPREHENSIVE METABOLIC Collected: 04/12/2018 Status: F Source: [place] [facility] 2:07 PM [facility] REPOSITORY TYPE CODE TESTS RESULT OUT OF RANGE REFERENCE UNITS LAB L501.0100 74-106 mg/dL Normal GLU 78 Result Comment: Please note revised GLUCOSE reference range effective 2017. LAB L501.1000 7-18 mg/dL High BUN 19 LAB L501.1100 0.55-1.02 mg/dL Normal CREAT,SERUM 0.93 Result Comment: The validity of the calculated GFR AND GFRAA in patients over 70 years has not been determined. Clinical correlation is essential. LAB L501.1110 >60 mL/min Normal EST GFR 73 Result Comment: Non- GFR Calc LAB L501.1115 >60 mL/min Normal EST GFR - AA 88 Result Comment: GFR Calc LAB L501.1255 ml/min Normal Estimated CRCL 89.08 LAB L501.1300 10-20 RATIO High BUN/CRE 20.4 LAB L501.1500 6.4-8. g/dL High 2 T PROT 8.7 LAB L501.1800 3.2-5. g/dL Normal 0 ALB 4.1 LAB L501.1950 2.2-4. g/dL High 2 GLOB 4.6 LAB L501.2000 0.9-2. RATIO Normal 4 A/G 0.9 LAB L501.2200 8.5-10 mg/dL Normal .1 CA 9.2 LAB L501.4100 15-37 U/L Normal AST 21 LAB L501.4305 45-117 U/L Normal ALK P 84 LAB L501.4405 13-56 U/L Normal ALT 23 LAB L501.4600 0.20-1 mg/dL Normal .00 T BILI 0.50 LAB L501.5300 136-14 mmol/L Normal 5 NA 138 LAB L501.5600 3.5-5. mmol/L Normal 1 K 4.1 LAB L501.5900 98-107 mmol/L Normal CL 104 LAB L501.6100 21.0-3 mmol/L Normal 2.0 CO2 27.0 LAB L501.6200 5-15 Normal GAP 7 Performed By: #### L500.4050, L503.6030, L503.6550 #### [facility] [address] [place], [place], [address] IRON+IRON BINDING Collected: 04/12/2018 Status: F Source: [facility] 2:07 PM [facility] REPOSITORY TYPE CODE TESTS RESULT OUT OF REFERENCE UNITS RANGE LAB L503.6075 250-450 ug/dL TIBC High 461 LAB L503.6150 50-170 ug/dL Low IRON 24 LAB L503.6250 15.0-55.0 % Low IRON SATURATION 5.2 Performed By: #### L500.4050, L503.6030, L503.6550 #### [facility] [address] [place], [address] FERRITIN Collected: 04/12/2018 Status: F Source: [place] 2:07 PM [facility] REPOSITORY TYPE CODE TESTS RESULT OUT OF RANGE REFERENCE UNITS LAB L503.6550 8-252 ng/mL Normal FERRITIN 9 Performed By: #### L500.4050, L503.6030, L503.6550 #### [facility] [address] [place], [address] CBC W/DIFF, AUTOMATED Collected: 04/12/2018 Status: F Source: [place] 2:07 PM [facility] REPOSITORY TYPE CODE TESTS RESULT OUT OF RANGE REFERENCE UNITS LAB L100.1000 4.4-11.0 K/mm3 Normal WBC 4.5 LAB L100.1200 4.2-5.4 M/mm3 Normal RBC 5.40 LAB L100.1300 12.0-15.0 g/dl Low HGB 11.9 LAB L100.1400 37-47 % Normal HCT 37.8 LAB L100.1500 81-99 fL Low MCV 70.0 LAB L100.1600 27.0-32.0 pg Low MCH 22.0 LAB L100.1700 32-36 g/gl Low MCHC 31.5 LAB L100.1810 11.6-14.6 % High RDW CV 16.0 LAB L100.1820 35.1-43.9 fl Normal RDW SD 40.8 LAB L100.1900 150-450 K/mm3 Normal PLT 251 LAB L100.2000 6.2-12.0 fl Normal MPV 10.4 LAB L100.2100 47-70 % High NEUT% 72.1 LAB L100.2200 19-41 % Normal LY% 20.8 LAB L100.2300 0-10 % Normal MONO% 5.8 LAB L100.2400 0-5 % Normal EO% 0.9 LAB L100.2500 0-1 % Normal BASO% 0.4 LAB L100.2550 0.0-0.9 % Normal IM GRAN % 0.000 Result Comment: IG% - Immature Granulocytes (promyelocytes, myelocytes and metamyelocytes) > 1% indicates that a LEFT SHIFT is Present. LAB L100.2620 2.0-7.7 X10 3/uL Normal Absolute Neut 3.2 LAB L100.2720 0.83-4.51 X10 3/ul Normal Absolute Lymph 0.93 LAB L100.5500 ADEQ Normal PLT EST ADEQUATE LAB L100.5650 Normal PLT MORPH LARGE Performed By: #### L100.0100 #### [facility] [address] [place], [address] PROGRESS Observed: 04/05/2018 Status: COMPLETED Source: [place] 2:30 PM [facility] REPOSITORY HNO ID: [id number] Author: Dayton Mauro Service: (none) Author Type: Physician Type: Progress Notes Filed: 04/05/2018 3:15 PM Note Text: [facility] [place] DO KAILEE BONILLA Name: Cassie Hill I expanded her right breast with 60 cc. She is going to schedule her radiation treatments. We did not expand the left breast so that it will not interfere with the radiation beam. I would like to see her at least once a month to evaluate the condition of her right breast skin. Any concerns or questions prior to next appointment, patient is to call office or return sooner. Dayton Mauro DO April 05, 2018 This note was generated with voice recognition software and may contain errors, including spelling, grammar, syntax and misrecognition of what was dictated, that are not fully corrected. PROGRESS Observed: 03/20/2018 Status: COMPLETED Source: [place] 1:45 PM [facility] REPOSITORY HNO ID: [id number] Author: Dayton Mauro Service: (none) Author Type: Physician Type: Progress Notes Filed: 03/20/2018 2:17 PM Note Text: [facility]METIC SURG[facility] [place] LuAbelardo DO KAILEE MAURO Name: Cassie Hill Today I expanded her right breast with 60 cc.'s was tolerated well. We will add another 60 cc in 2 weeks. Her radiation oncologist does not want us to expand her left breast. Any concerns or questions prior to next appointment, patient is to call office or return sooner. Dayton Mauro DO March 20, 2018 This note was generated with voice recognition software and may contain errors, including spelling, grammar, syntax and misrecognition of what was dictated, that are not fully corrected. ONCOLOGY FOLLOW-UP Observed: 03/15/2018 Status: F Source: [place] VISIT 4:12 PM [facility] REPOSITORY [facility] Medical Records Department [address] [place] [address] Oncology Follow-Up Visit 03/15/18 1546 MR#: [id number] Acct: [id number] Name: CASSIE HILL Rep #: [id number] : 1985 32 From: J Luis Reza DO PCP: Sharda Giraldo PA-C Status: REG RCR Y Location: [facility] Date of Service: 03/15/18 Last Clinic Visit: 02/13/18 Diagnosis: Cassie Hill is a 32-year-old premenopausal female clinical stage IIA-IIIA (iT6x-P8 cN1 (f) M0, ypT1b ypN1a M0) high-grade invasive ductal carcinoma (ER >95%, KS 38%, Her2 0 IHC) of the right breast upper outer quadrant status post confirmatory biopsy of the breast tumor as well as 1 of the abnormal appearing right axillary lymph nodes, neoadjuvant chemotherapy consisting of ddAC x 4 cycles followed by dd paclitaxel x 1 cycle and weekly paclitaxel for 7 weeks (dose dense switched due to toxicity and weekly stopped 2 weeks early due to infusion reaction), and bilateral nipple sparing mastectomy with right SLNBx and completion axillary dissection with immediate bilateral tissue sales promoter placement (02/21/18). History of Present Illness: Patient initially presented with a palpable right breast mass. 07/04/2017: Patient underwent ultrasound of the right breast to evaluate the palpable mass. The ultrasound demonstrated a solid-appearing mass with likely benign morphology, hypoechoic echotexture, anterior depth at the 10 o'clock position measuring 8 x 9 x 4 mm in size. BI-RADS Category 3, recommended six-month follow-up ultrasound of the right breast. [facility] radiology review demonstrated that at the 10 o'clock position there is an oval hypoechoic mass with irregular margins identified measuring 0.9 x 0.4 x 0.8 cm without significant internal vascularity, this mass corresponds to the area of biopsy-proven malignancy per the referring physician. 07/24/2017: Ultrasound-guided biopsy of the right breast mass was performed. Pathology demonstrated evidence for grade 3 invasive ductal carcinoma (ER >95%, KS 38%, Her2 0 IHC) associated with focal DCIS. 08/01/2017: Mammogram was completed and showed evidence for diffuse suspicious microcalcifications in the upper outer quadrant of the right breast highly suggestive of malignancy. BI-RADS Category 6. [facility] radiology review showed evidence for extensive pleomorphic calcifications in the entire supra para lateral quadrant of the right breast extending posteriorly to the level of the nipple without evidence of any suspicious masses. 08/04/2017: Breast MRI was performed which demonstrated evidence for asymmetric clumped enhancement in the upper outer quadrant of the right breast extending into the right axillary tail, measurement of this area is difficult due to positioning of the breast and the breast coil however the transverse diameter measures at least 5 cm, there is enhancement adjacent to the pectoralis muscle without evidence of invasion and there are no enlarged lymph nodes on the MRI, there is no abnormal enhancement or masses noted in the left breast. BI-RADS Category 6. [facility] MRI review demonstrated an area of non- mass enhancement extending posteriorly along the axillary tail abutting the prep pectoralis muscle extending approximately 5 cm corresponding to the area of extensive pleomorphic calcifications within the entire superolateral quadrant of the right breast, no suspicious internal mammary or axillary lymph nodes are identified on the right. However, this is a limited MRI of the breast as the disc contained incomplete inclusion of postcontrast fat saturation images. 08/17/2017: Digital diagnostic mammography of the left breast and ultrasound of both breasts were completed. There are no suspicious masses or calcifications identified in the left breast on mammography. On ultrasound there is an oval hypoechoic mass with irregular margins again demonstrated at the 10 o'clock position 8 cm from the nipple measuring 0.9 x 0.4 x 1 cm which corresponds to the mass seen on the outside ultrasound and is consistent with the biopsy-proven malignancy. A smaller similar appearing mass is also demonstrated at the 10 o'clock position 8 cm from the nipple measuring 0.5 x 0.3 x 0.5 cm approximately 2 cm from the index lesion. Evaluation of the right axilla demonstrates at least 2 morphologically abnormal lymph nodes each with 0.3 cm of focal cortical thickening, there are 2 other lymph nodes demonstrated which are morphologically normal. Ultrasound of the left breast demonstrates no sonographic abnormalities to correspond with the questionable finding on MRI. 08/17/2017: Ultrasound biopsy of right axillary lymph node was performed. Pathology demonstrated evidence for metastatic carcinoma (ER >95%, KS 80%, Her2 1+ IHC) 08/28/2017: Port was placed for chemotherapy. 08/30/2017: CT chest abdomen and pelvis with contrast was performed which demonstrated evidence for a punctate density in the lateral right breast which may be a tissue marker, prominent right axillary lymph nodes with some stranding in the right axilla that may relate to lymph node biopsy, and no evidence for metastatic disease. 08/30/2017: Bone scan was performed which showed no evidence of osseous metastatic disease. 11/13/2017: Digital diagnostic mammogram of the right breast was performed within the posterior depth of the right upper outer quadrant there is a ribbon biopsy clip with fine pleomorphic calcifications in a segmental distribution extending posteriorly from the ribbon biopsy clip to the junction of the anterior to middle third of the breast, the extent of calcifications is at least 6 cm in the craniocaudal dimension and 7.5 cm in the anterior posterior dimension. The axillary lymph node biopsy clip is not within the [id number]. Ultrasound of the right breast shows no evidence of the previous identified 2 masses within the breast, the ribbon biopsy clip is not demonstrated by ultrasound. Sonographic evaluation of the right axilla demonstrates multiple normal-appearing lymph nodes with the biopsy clip noted directly adjacent to the biopsied metastatic lymph node in the abnormal cortical thickening of the biopsied axillary lymph node has resolved in the interim. 11/13/2017: Bilateral breast MRI with contrast was performed which demonstrated focal signal void within the upper outer quadrant of the right breast in the axilla correlating with previously placed biopsy clips, no suspicious mass or enhancement is identified, no axillary or internal mammary lymphadenopathy is appreciated, there are no suspicious masses or evidence of enhancement identified in the left breast and no axillary or internal mammary lymphadenopathy on the left. 09/05/2017 - 12/26/2017: Patient was treated with dose dense Adriamycin/Cytoxan 4 cycles followed by a planned 4 cycles of dose dense paclitaxel. The first treatment of paclitaxel was complicated by severe pain requiring hospitalization and treatment was suspended the resumed with weekly paclitaxel for 9 additional weeks planned. However after the seventh weekly paclitaxel she had severe infusion reaction and treatment was discontinued. 02/21/2018: Patient underwent right nipple sparing mastectomy with port removal, right sentinel lymph node biopsy, complete axillary dissection the right axilla, and left prophylactic nipple sparing mastectomy. She underwent breast reconstruction with placement of Allergan anatomic textured 300 cc tissue expanders inflated to 360 cc bilaterally and had interpositional AlloDerm graft 4 x 8 cm placed bilaterally. Pathology demonstrated evidence for residual grade 2 invasive ductal carcinoma involving the upper outer quadrant of the right breast measured at 0.9 cm in greatest dimension, LV SI was indeterminant, high- grade DCIS was present with necrosis and extensive intraductal component seen, margins for invasive carcinoma and DCIS were negative, 1 of 9 lymph nodes contained 0.3 cm of metastatic disease and extranodal extension was not identified. Pathologic ypT1b ypN1a. Radiation Treatment History: No history of previous radiation, no diagnosis of collagen vascular disease, no pacemaker. Interval History: Patient returns for follow-up after completing bilateral mastectomy and right axillary lymph node assessment 3 weeks ago. She reports that her pain is improved and that she really does not have any pain currently. She does report a numb/tingly feeling in the bilateral axilla region. She has been seen by occupational and physical therapy and is currently working on improving her arm range of motion. She can get the right arm to about 90 but has some difficulty after that, she can get the left arm above her head with some difficulty. She reports her drains were removed after 1 week and that she developed of small fluid collection that has since resolved, she denies having any persistent or recurrent fluid collection recently. She denies having any other problems or concerns at this time. I have reviewed the medical, surgical, and other pertinent history in details and have updated medication and allergy information in the electronic medical record. Review of Systems: A 12-point review of systems was completed and was negative except for what is noted in the HPI/Interval History and by the nurse. Height/Weight/BMI: Height: 5 ft 9 in Weight: 77.428 kg BMI: 25.4 Vital Signs Temperature 97.9 F 03/15/18 11:54 Temperature Source Oral 03/15/18 11:54 Physical Exam: ECO KAR[place]FSKY SCORE: 100% CONSTITUTIONAL: Well-developed, well-nourished, and in no apparent distress. NECK: No cervical or supraclavicular adenopathy noted. Breast/Axilla: The bilateral breasts were examined in the seated and supine positions. Horizontal mastectomy scars are appreciated on both breasts and the breasts are firm to palpation due to expansion. No palpable breast lesions or axillary lymph nodes are appreciated. There is no wound dehiscence, drainage, or skin color changes. Imaging: As per HPI Laboratory Data: No labs to review Assessment: Cassie Hill is a 32-year-old premenopausal female clinical stage IIA-IIIA ([id number] cN1 (f) M0, ypT1b ypN1a M0) high-grade invasive ductal carcinoma (ER >95%, KS 38%, Her2 0 IHC) of the right breast upper outer quadrant status post confirmatory biopsy of the breast tumor as well as 1 of the abnormal appearing right axillary lymph nodes, neoadjuvant chemotherapy consisting of ddAC x 4 cycles followed by dd paclitaxel x 1 cycle and weekly paclitaxel for 7 weeks (dose dense switched due to toxicity and weekly stopped 2 weeks early due to infusion reaction), and bilateral nipple sparing mastectomy with right SLNBx and completion axillary dissection with immediate bilateral tissue sales promoter placement (02/21/18). Plan: I reviewed the pathologic results from surgery in detail which showed evidence for residual disease measuring 0.9 cm in the breast and a residual positive lymph node with disease measuring 0.3 cm. I again discussed the imperfect data for postmastectomy radiation therapy following neoadjuvant chemotherapy. I highlighted for her clinical risk factors that portend higher risks of recurrence including grade 3 histology, young age/premenopausal status, suboptimal neoadjuvant chemotherapy delivery resulted from toxicity, and potentially a large primary tumor with multiple positive lymph nodes; and also discussed the pathologic risk factors of residual disease within the breast and axilla as contributing greatly to her risk of local regional recurrence. This risk was studied with the combined analysis of NSABP B-18 and B-27 (Anastacia et al, JCO 2012) in patients who received neoadjuvant chemotherapy and surgery but no radiation therapy, and in patients with mastectomy and residual disease within the lymph nodes the risk of recurrence was over 15-20% at 10 years if the lymph nodes were clinically positive as was true in her case and this risk did not depend on size of the primary tumor. For this reason, I do believe there is good evidence that she has a high risk of local regional recurrence and would benefit from the addition of postmastectomy radiation therapy to the right chest wall and regional lymph nodes including the undissected axilla, supraclavicular region, and internal mammary lymph nodes. I discussed the risks, benefits, and alternatives to radiation therapy and all questions and concerns were answered to the best of my ability. I explained the logistics of radiation therapy. In particular I discussed that the radiation proceeds over several weeks and is delivered with daily fractionation. The process of planning radiation therapy was also discussed including the need for CT simulation, placement of tattoos or other marking, completion of the CT scan, and treatment planning including a verification simulation prior to initiation of treatment. I then discussed the possibility of acute side effects from radiation which would include but are not limited to skin erythema/tanning, chest wall discomfort, chest wall swelling, mild esophagitis, possibly a cough/pneumnitis, and fatigue. The temporary nature of the symptoms, supportive therapies that are available, as well as the expected average timeline for the resolution was all discussed. The risk of permanent complications was then discussed and these would include but are not limited to, a 10-15% risk of permanent skin color/texture change in the area of the treated skin, lymphedema which would generally be about 5-10% after sentinel lymph node biopsy and 15-20% after axillary lymph node dissection (additional 5% risk with jimenez irradiation), 3-5% risk for muscle fibrosis causing decreased arm range of motion, risk for poor cosmetic outcome/capsular contracture that could require further surgery, chest wall fibrosis that could result in pain or reduced range of motion, <5% risk of radiation pneumonitis or lung fibrosis, small risk of rib fracture underlying the treated chest wall, poor wound healing in the event of future surgery to the radiated site, and a less than 1% long-term risk of secondary malignancy. The patient currently feels like her level of tissue sales promoter expansion is desirable and will discuss with her plastic surgeon next week if the right can be slightly expanded to try to ensure that the final size is consistent with what she has now, I recommended that we do not increased size of the left breast until following the completion of radiation therapy. Once the complete expansion of the right breast is attained and the volume is stable and she will return for CT simulation with goals of starting treatment by 8 weeks post surgery. She also requested a second opinion for medical oncology to determine the optimal hormone therapy and explore any options for clinical trials, I will plan to set her up with her breast medical oncologist at the [facility] in the near future. She was instructed to call with any further questions or concerns in the interim. J Luis Reza DO, MS Ehs Engineer, Department of Radiation Oncology [facility] 03/15/18 1612 <Electronically signed by J Luis Reza DO> Date J Luis Reza DO CC: Signed CLINIC NOTE - Observed: 03/13/2018 Status: UNK Source: [facility] 9:56 AM HOSPITALS REPOSITORY Patient Visit Information: ? Visit Type Follow Up Visit ? Patient States post op ? Source of Information patient ? Accompanied by spouse Admission Information: ? Admission Since Last Visit Yes ? Name of Location Hospital ? Admission Date 21-Feb-2018 ? Admission Reason/Details breast surgery Vital Signs: ? Temp (degrees C) 36.6 degrees C ? Temperature tympanic ? Heart Rate (beats/min) 90 beats per minute ? Respiration (breaths/min) 16 breath per minute ? BP Systolic (mm Hg) 119 mmHg ? BP Diastolic (mm Hg) 78 mmHg ? BP Mean (mm Hg) 91 mmHg ? Height in cm 174.1 centimeter(s) ? Height Method measured 03/13/18 ? Height standing ? Weight in kg 77.1 kilogram(s) ? Weight Method standing scale ? BMI (kg/m2) 25.4 ? BSA (m2) 1.93 Pain Screening: ? Patient States Pain yes ? Current Pain Score (0-10) 4 ? Pain Description/Location surgical site ? Pain Scale Used Numeric (0-10) Pain Assessment CHARLEY (to be completed by nurse if pain score greater than 4): ? Pain Management Interventions medication ? Pain Comment Patient seen and evaluated by Dr. Hines Health Screening: ? LMP Comments chemo Ehs Engineer for intimate exam offered to patient: ? Patient has accepted ? Ehs Engineer is a family member/friend, Allergies: morphine: Drug, Rash, Active paclitaxel: Drug, Unknown, Active Outpatient Medication Profile: * Patient Currently Takes Medications as of 13-Mar-2018 10:06 documented in Structured Notes Colace 100 mg oral capsule: Last Dose Taken: , 1 cap(s) orally 2 times a day, As Needed -for constipation , Start Date: 21-Feb-2018 Zofran ODT 4 mg oral tablet, disintegrating: Last Dose Taken: , 1 tab(s) orally every 8 hours, As Needed -for nausea , Start Date: 21-Feb-2018 Valium 5 mg oral tablet: Last Dose Taken: , 1 tab(s) orally every 8 hours, As Needed -for spasms , Start Date: 21-Feb-2018 Percocet 5/325 oral tablet: Last Dose Taken: , 1 tab(s) orally every 4 hours, As Needed -for pain , Start Date: 21-Feb-2018 digestive enzymes/hyoscyamine/phenyltoloxamine oral capsule: Last Dose Taken: , 1 cap(s) orally once a day Each Visit: Have you fallen in the last 6 months? no Do you have a fear of falling? no Not a falls risk implement environmental risk factors interventions Is the patient using an assistive device no Do you feel you need assistance? no Electronic Signatures: Krupa Yepez ([email or web address]) (Signed 13-Mar-2018 10:08) Authored: Patient Visit Information, Vital Signs, Health Screening, Ehs Engineer, Allergies, Outpatient Medication Profile, Adult Admission Risk Screen Nimo Palacios (ELLI) (Signed 13-Mar-2018 11:04) Authored: Vital Signs Last Updated: 13-Mar-2018 11:04 by Nimo Palacios (ELLI) CLINIC NOTE - HEME Observed: 03/12/2018 Status: COMPLETED Source: [facility] ONC-FOLLOW UP VISIT 9:34 PM HOSPITALS REPOSITORY Patient Visit Information: Visit Type: Follow Up Visit Cancer History: Breast AJCC Edition: 7th (AJCC), Diagnosis Date: Jul 2017, IIA, T1b N1 M0 Treatment History: 1. Right breast mass palpated by patient. Ultrasound abnormal. Right breast biopsy 07/24/17 showed invasive ductal carcinoma grade 3 with focal DCIS, ER/KS positive and HER2 negative. MRI showed extensive non-mass enhancement right breast UOQ nipple to pectoralis 2. Further diagnostic U/S [facility] 08/17/17 showed abnomal right axillary LNs. Core biopsy 08/17/17 revealed metastatic carcinoma in LN. Tumor was ER >95% KS 80% HER2 negative 1+. Clinical Stage T1N1M0 (no evidence of systemic disease on CT scan and bone scan on 08/30/17) 3. Neoadjuvant chemotherapy with adriamycin/cytoxan X 4 followed by paclitaxel X 4 given dose dense with Neulasta support started 09/05/17. First Paclitaxel treatment 10/31/17 complicated by severe pain requiring hospitalization. Treatment suspended then resumed with weekly Paclitaxel for 9 additional weeks planned. She had a severe infusion reaction with the 7th weekly Paclitaxel (of 9 planned) and treatment was discontinued 12/26/17. 4. Bilateral mastectomy and right SLN with ALND performed 02/21/18. Pathology revealed benign left breast. Right breast showed invasive ductal carcinoma grade 2 with residual invasive disease 0.9 cm. 1/1 SLN and 0/2 SLN. 0/6 ALN for total 11/07 positive LNs. [id number]. 5. Radiation and hormonal treatment to follow. History of Present Illness: Chief Complaint: Oncology follow-up Interval History: Bilateral mastectomy with TE reconstruction 02/21/18. this is the first good week since then. Now three weeks from surgery. Met with XRT near home and meets again on . She did not receive a call from CTU. Chemotherapy recovery is going ok-- she some chemotherapy brain, word finding issues, some peripheral neuropathy, no pain, she had a menstrual cycle the day before her surgery 02/19/18. She is interested in clinical trials that might reduce recurrence risk. Review of Systems: Review of Systems: She denies breathing, back or breast complaints. No diarrhea, constipation or BRIGHT. No chest pain or SOB. Rest per HPI ? System Review All other systems have been reviewed and are negative for complaint. Allergies and Intolerances: Allergies: morphine: Drug, Rash, Active paclitaxel: Drug, Unknown, Active Outpatient Medication Profile: * Patient Currently Takes Medications as of 13-Mar-2018 10:06 documented in Structured Notes Colace 100 mg oral capsule: Last Dose Taken: , 1 cap(s) orally 2 times a day, As Needed -for constipation , Start Date: 21-Feb-2018 Zofran ODT 4 mg oral tablet, disintegrating: Last Dose Taken: , 1 tab(s) orally every 8 hours, As Needed -for nausea , Start Date: 21-Feb-2018 Valium 5 mg oral tablet: Last Dose Taken: , 1 tab(s) orally every 8 hours, As Needed -for spasms , Start Date: 21-Feb-2018 Percocet 5/325 oral tablet: Last Dose Taken: , 1 tab(s) orally every 4 hours, As Needed -for pain , Start Date: 21-Feb-2018 digestive enzymes/hyoscyamine/phenyltoloxamine oral capsule: Last Dose Taken: , 1 cap(s) orally once a day Medical History: Scoliosis: Status: Active Breast cancer, right: Status: Active Family History: No Family History items are recorded in the problem list. 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 Premenopausal with LMP 07/21/2017 Childrn are 8 (son) and 3 (daughter). She is considering having more children. Last year she had surgery laparoscopic to open with removal of one ovary and a cyst was supposed to be removed from uterus. Dermoid cyst was found at surgery. Hemorrhagic cyst on the remaining ovary. Uterine polyp removed with the surgery. x 2 Family history: Patient reports a family history of breast cancer affecting her maternal half-aunt (shared father) at 51. Denies colon, prostate or ovarian cancer in family. Mother with non melanoma skin cancer PMH chronic anemia and alpha thalassemia Iron infusions monthly Menorrhagia-- 9 days menses Did not respond to oral iron---Hgb became quite low Hgb lately has been normal Worst in , recently 10 (was 2) [employer] for scoliosis surgery at 10 (1) Performance: ECOG Performance Status: 1- Restricted from physically stenuous work Vitals and Measurements: Last 3 Weights & Heights: Date: Weight/Scale Type: Height: 13-Mar-2018 09:56 77.1 kg / standing scale 174.1 cm 21-Feb-2018 18:13 77.1 kg / standing 175.2 cm 21-Feb-2018 18:13 77.1 kg 175.2 cm Physical Exam: Constitutional: Well appearing woman in no acute distress. AOx3 Eyes: PERRL, EOMI, clear sclera ENMT: mucous membranes moist, no apparent injury, no lesions seen Head/Neck: Neck supple, no apparent injury, thyroid without mass or tenderness, No JVD, trachea midline Respiratory/Thorax: Lungs clear to ausculation and percussion, normal breath sounds with good chest expansion, thorax asymmetric Cardiovascular: regular rate and rhythm, normal S1S2, no murmurs/ rubs/ gallops. Gastrointestinal: soft, nondistended, nontender to palpation. No organomegaly noted. No other masses palpated. Genitourinary: no suprapubic tenderness Musculoskeletal: ROM intact, spine nontender. Scoliosis with spine incision, well healed Extremities: normal extremities, no cyanosis edema, contusions or wounds, no clubbing Neurological: alert and oriented x3, intact senses, normal strength Breast: Bilateral mastectomy with TE reconstruction, well healed. Lymphatic: No cervical, supraclavicular, infraclavicular or left axillary lymphadenopathy. Psychological: Appropriate mood and behavior Skin: Warm and dry, no lesions, no rashes. Lab Results: ? Results CBC date/time WBC HGB HCT PLT Neut 19-Sep-2017 11:44 8.4 10.3(L) 33.1(L) 294 6.82 BMP date/time NA K CL CO2 BUN CREAT 22-Aug-2017 17:39 139 3.9 105 N/A 23 0.79 Pathology Results: ? Results Surgical Pathology [Feb 22 2018 12:40PM] ([id number]) Name CASSIE HILL Pathologist: MIRIAM MOSER MD, PhD Date of Procedure: 02/21/2018 Date Received: 02/21/2018 Date Reported 02/22/2018 Submitting Physician: LALITHA MATHIS MD Location: [facility] FINAL DIAGNOSIS A. LEFT BREAST NIPPLE CORE: --SEE NOTE AND SEPARATE SURGICAL PATHOLOGY REPORT. Note: This part was sent directly to [facility] Department of Pathology for further processing and interpretation. Final diagnosis will be issued as a separatereport. The original pathology report will be kept on file in the [facility] Department of Pathology; copies will be distributed as appropriate. B. LEFT BREAST-SHORT SUPERIOR, LONG LATERAL, WHITE ANTERIOR: -- SEE NOTE AND SEPARATE SURGICAL PATHOLOGY REPORT. Note: This part was sent directly to [facility] Department of Pathology for further processing and interpretation. Final diagnosis will be issued as a separate report. The original pathology report will be kept on file in the [facility] Department of Pathology; copies will be distributed as appropriate. C. RIGHT SENTINEL LYMPH NODE: -- INTRAOPERATIVE REPORT ONLY. -- SEE NOTE AND SEPARATE SURGICAL PATHOLOGY REPORT. Note: This part was sent directly to [facility] Department of Pathology for further processing and interpretation. Final diagnosis will be issued as a separate report. The original pathology report will be kept on file in the [facility] Department of Pathology; copies will be distributed as appropriate. D. RIGHT SENTINEL LYMPH NODE #2: -- INTRAOPERATIVE REPORT ONLY. -- SEE NOTE AND SEPARATE SURGICAL PATHOLOGY REPORT. Note: This part was sent directly to [facility] Department of Pathology for further processing and interpretation. Final diagnosis will be issued as a separate report. The original pathology report will be kept on file in the [facility] Department of Pathology; copies will be distributed as appropriate. E. RIGHT NIPPLE CORE: -- SEE NOTE AND SEPARATE SURGICAL PATHOLOGY REPORT. Note: This part was sent directly to [facility] Department of Pathology for further processing and interpretation. Final diagnosis will be issued as a separate report. The original pathology report will be kept on file in the [facility] Department of Pathology;copies will be distributed as appropriate. F. RIGHT AXILLARY CONTENTS: -- SEE NOTE AND SEPARATE SURGICAL PATHOLOGY REPORT. Note: This part was sent directly to [facility] Department of Pathology for further processing and interpretation. Final diagnosis will be issued as a separate report. The original pathology report will be kept on file in the [facility] Department of Pathology; copies will be distributed as appropriate. G.RIGHT BREAST SHORT-SUPERIOR; LONG LATERAL, WHITE COREY NIPPLE: -- SEE NOTE AND SEPARATE SURGICAL PATHOLOGY REPORT. Note: This part was sent directly to [facility] Department of Pathology for further processing and interpretation. Final diagnosis will be issued as a separate report. The original pathology report will be kept on file in the [facility] Department of Pathology; copies will be distributed as appropriate. H. RIGHT BREAST-ANTERIOR LATERAL MARGIN-STAPLE COREY NEW MARGIN: -- SEE NOTE AND SEPARATE SURGICAL PATHOLOGY REPORT. Note: This part was sent directly to [facility] Department of Pathology for further processing and interpretation. Final diagnosis will be issued as a separate report. The original pathology report will be kept on file in the [facility] Department of Pathology; copies will be distributed as appropriate. I. MEDIPORT-EXPLANT: -- SEE NOTE AND SEPARATE SURGICAL PATHOLOGY REPORT. Note: This part was sent directly to [facility] Department of Pathology for further processing and interpretation. Final diagnosis will be issued as a separate report. The original pathology report will be kept on file in the [facility] Department of Pathology; copies will be distributed as appropriate. Electronically Signed Out By MIRIAM MOSER MD, PhD/XLI ritu/02/21/2018 Next Report Surgical Pathology [Feb 27 2018 5:03PM] ([id number]) Name CASSIE HILL Pathologist: ALBERTO TRIPLETT MD Date of Procedure: 02/21/2018 Date Received: 02/21/2018 Date Reported 02/27/2018 Submitting Physician: LALITHA MATHIS MD Location: [facility] External # [id number] FINAL DIAGNOSIS A. LEFT BREAST NIPPLE CORE, BIOPSY: --BENIGN BREAST TISSUE. B. LEFT BREAST, SKIN AND NIPPLE SPARING MASTECTOMY: --BENIGN BREAST TISSUE. C. RIGHT SENTINEL LYMPH NODE #1, EXCISION: --METASTATIC CARCINOMA PRESENT IN ONE LYMPH NODE (1/), SEE NOTE. --PREVIOUS BIOPSY SITE CHANGES. Note: The metastatic carcinoma measures up to 0.3 cm in greatest dimension. No extranodal extension is identified. D. RIGHT SENTINEL LYMPH NODE #2, EXCISION: --TWO LYMPH NODES, NO MALIGNANCY IDENTIFIED (0/2). E. RIGHT NIPPLE CORE, BIOPSY: --BENIGN BREAST TISSUE. F. RIGHT AXILLARY CONTENTS, EXCISION: --SIX LYMPH NODES, NO MALIGNANCY IDENTIFIED (0/6). G. RIGHT BREAST, SKIN AND NIPPLE SPARING MASTECTOMY: --INVASIVE DUCTAL CARCINOMA PRESENT AFTER NEOADJUVANT CHEMOTHERAPY. --EXTENSIVE DUCTAL CARCINOMA IN SITU WITH ASSOCIATED CALCIFICATIONS. --SEE SYNOPTIC REPORT. H. RIGHT BREAST, ANTERIOR LATERAL MARGIN NEW MARGIN, EXCISION: --BENIGN FIBROADIPOSE TISSUE. I. MEDIPORT-EXPLANT: --GROSS EXAMINATION ONLY. The gross and/or microscopic findings were reviewed in conjunction with pathology resident, Loly Valle DO. CANCER SUMMARY REPORT Invasive Breast Cancer Staging According to [place] Joint Committee on Cancer Staging Manual 8th Edition Macroscopic: Specimen: Breast Procedure: Total mastectomy Lymph node sampling: Parlin lymph node(s) and axillary dissection Specimen Integrity: Multiple designated specimens Specimen Laterality: Right Specimen Size: Total mastectomy Tumor site: Upper outer quadrant Tumor size: Greatest dimension 0.9 cm Macroscopic and Microscopic Extent of Tumor: Tumor focality: Single focus of invasive carcinoma Skin and Nipple: No skin or nipple present Skeletal muscle: No skeletal muscle present Histologic Type: Invasive ductal carcinoma Histologic grade: Antonio Histologic Score: Tubule Formation: Minimal less than 10 % (score = 3) Nuclear pleomorphism: Marked increase in size (score = 3) Mitotic count: 0 to 5 mitoses per 10 HPF (score = 1) Total Antonio Score:Grade II: 6 - 7 points Lymphatic Vessel invasion: Indeterminate Ductal Carcinoma In Situ: Present Nuclear Grade: High Architectural patterns: Solid and Cribriform Necrosis: Present Extensive Intraductal Component (EIC): Present Lobular Carcinoma in Situ: Absent Microcalcifications: Present in DCIS Margins: Invasive Carcinoma: Negative Ductal Carcinoma In situ: Negative Extent of Invasion: TNM descriptors: y (post-treatment) Primary Tumor (pT): pT1b: Tumor more than 0.5 cm but not more than 1.0 cm in greatest dimension Lymph nodes: Number Examined: 9 Number with macrometastases (>0.2 cm): 1 Number with micrometastases (>0.2 mm) to 0.2 cm and/or >200 cells): 0 Number with isolated tumor cells (<= 0.2 mm and <= 200 cells): 0 Size of largest metastasis: 0.3 cm Extranodal extension: Not identified Regional Lymph Nodes (pN): pN1a: Metastasis in 1-3 axillary lymph nodes, at least one metastasis larger than 2 mm Distant metastasis (pM): pM: Unknown Estrogen Receptor: See prior report: [id number] Progesterone Receptor: See prior report: [id number] HER2: See prior report: [id number] Biopsy site change: Yes Additional pathologic findings: Atypical ductal hyperplasia Comment: Only minimal therapy related changes are present in the breast tissue and involved lymph node. The uninvolved lymph nodes are unremarkable. [facility] Breast: Invasive Additional Testing: Tumor Block: G1 Electronically Signed Out By ALBERTO TRIPLETT MD/CHARLY ckg/02/22/2018 ckg02/22/2018 Assessment and Plan: Assessment and Plan: Assessment: Stage T1N1M0 right breast cancer ER/KS positive HER2 negative; LN positive on biopsy. Metastatic w/u with bone scan and CT scan was completed and was negative. We discussed curative intent of chemotherapy given preoperatively. Adriamycin/cytoxan X 4 followed by paclitaxel X 4 given dose dense with Neulasta support as preoperative chemotherapy was recommended. Patient watched the chemotherapy class video because she was unable to make the class. Consent for chemotherapy signed, Mediport placed 08/28/17, Oncoechocardiogram complete. Chemotherapy initiated 09/05/17. She has chronic Fe deficiency and resumed iron infusions with her chemotherapy treatment with C2 Adriamycin/Cytoxan. Diagnosis of alpha thalassemia confirmed by genotype. Declined fertility preservation. 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 Surgeon: Dr. Lalitha Mathis. Radiation appointment completed but she will receive radiation closer to home. Completed Adriamycin/Cytoxan chemotherapy on 10/17. Had C1 Paclitaxel complicated by severe pain requiring hospitalization and high doses of oxycodone. After an episode of syncope, medication was changed to oxycodone 5 mg, gabapentin 300 mg three times a day, dexamethasone 4 mg twice a day and ibuprofen. All of these were tapered and weekly Paclitaxel X 9 was initiated. MRI, mammogram and u/s show marked improvement. She needed mastectomy right due to extent of disease with >7cm calcifications. [id number] but was not pursued with radiation being planned outside our system. With the infusion reaction during week 7 of 9 planned Paclitaxel treatments, Paclitaxel was discontinued. Risk outweighed benefit of continued treatment. She has completed surgery with bilateral mastectomy. There was moderate residual disease and there is some risk of recurrence. She will have right chest wall/jimenez radiation and then hormonal treatment. I have recommended 5 years of ovarian suppression with Lupron and exemestane. A longer course of treatment could be considered with a switch to tamoxifen or continued AI/OS. Clinical trial entry on S1207 discussed and she may also be eligible for [id number] Aspirin trial. IC document for S1207 will be reviewed with Cassie. She will be seen in 2 months for trial entry and to initiate hormonal treatment. At least 30 minutes of direct consultation was spent with the patient today reviewing her cancer care plan, educating and answering question regarding ongoing follow up, greater than 50% in counseling and coordination of care. DISCONTINUE ON PATHWAY REGIMEN - Breast No Medical Intervention - Off Treatment. REASON: Other Reason PRIOR TREATMENT: Off Treatment Clinical Trial: Trial: [id number] Characteristics: Post-Neoadjuvant Therapy and Resection, HER2 Negative/Unknown/Equivocal, Residual Disease, Adjuvant Hormonal - Continuation Therapy After Neoadjuvant Therapy, Premenopausal Therapeutic Status: Post-Neoadjuvant Therapy and Resection ER Status: Positive (+) HER2 Status: Negative (-) KS Status: Positive (+) Residual Invasive Disease Post-Neoadjuvant Therapy? Yes Menopausal Status: PremenopausalIntent of Therapy: Curative Intent, Discussed with PatientIntent of Therapy: Curative Intent, Discussed with Patient Plan: I will see you after the radiation has been completed in 2 months. At that time we will consider clinical trials that might improve outcomes from your breast cancer. I would be most interested in you joining the trial with everolimus vs. placebo I recommend ovarian suppression with Lupron and a pill exemestane as hormonal treatment after radiation Patient Instructions: Instructions: I will see you after the radiation has been completed in 2 months. At that time we will consider clinical trials that might improve outcomes from your breast cancer. I would be most interested in you joining the trial with everolimus vs. placebo I recommend ovarian suppression with Lupron and a pill exemestane as hormonal treatment after radiation Note Recipients: Lalitha Mathis MD - [id number] Sharda Giraldo [facility] - [phone] Select Yes when ready to send to Provider(s) Listed Above: Note sent to providers named above Electronic Signatures: Nuzhat Hines) (Signed 17-Mar-2018 15:55) Authored: Patient Visit Information, Cancer History, History of Present Illness, Review of Systems, Allergies and Outpatient Medication Profile, Problem List, Social History, Performance Assessments, Vitals and Measurements, Physical Exam, Results, Assessment and Plan, Patient Instructions, To Send Document via Auto Fax Last Updated: 17-Mar-2018 15:55 by Nuzhat Hines) References: 1. Data Referenced From Clinic Note - Heme Onc-Follow Up Visit 02/05/2018 07:28 AM PROGRESS Observed: 03/05/2018 Status: COMPLETED Source: [facility] 9:00 AM [facility] REPOSITORY HNO ID: [id number] Author: Cira Cardenas (Res) Service: (none) Author Type: Resident Type: Progress Notes Filed: 03/05/2018 9:25 AM Note Text: [facility] MAURO, DO FACOS ? Name: Cassie Hill ? POST-OP FOLLOW-UP: OPERATION: Stage I bilateral breast reconstruction with placement of alloderm + tissue expanders DATE: 02/21/2018 ? Patient was seen and evaluated. She complains of right lateral/axillary and left/superior breast pain secondary to fluid accumulation after pulling of GERONIMO drains on 02/28/18. BREASTS: Bilateral warm and soft. Incisions C/D/I. Left superior/lateral fullness, diffuse TTP b/l, no areas of fluctuance. ? PLAN: No need for fluid aspiration Continue application of ice Moisturize b/l breasts Continue to wear comfortable running bra. Continue OT and home health nurse Follow up = 2 weeks -will review expansion at that time ? Any concerns or questions prior to next appointment, patient is to call office or return sooner. ? Cira Cardenas DO 01/10/18 TUMOR BOARD NOTE-BREAST Observed: 03/02/2018 Status: UNK Source: [facility] 8:05 AM HOSPITALS REPOSITORY Note: Tumor Board Note CASSIE HILL was presented at Breast Tumor Board Conference on 01-Mar-[address] Lalitha Mathis. Present at Conference: Medical Oncology, Radiation Oncology, Surgical Oncology and Pathology Reviewed . Impression: Presented with right mastectomy with SLNB and completion axillary dissection, left prophylactic mastectomy. S/P neoadjuvant therapy. Pathologic stage [id number] stage IIA (7th ed). 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 ER: Positive. KS: Positive. HER: Negative. Laterality: Right. Recommendations: Referrals: Clinical Trial ([id number]. [id number].). Genetics (referral completed) Hormonal (other). Radiation Therapy: Postop Radiation. Cancer Staging: Breast AJCC Edition: 7th (AJCC), Diagnosis Date: Jul 2017, IIA, T1b N1 M0 Disclaimer [facility] tumor board recommendations represent the consensus opinion of physicians present at a weekly patient care conference. The treating SCC physician is not always present, and many of the physicians formulating the recommendation have not personally seen or examined the patient under discussion. It is understood that the treating SCC physician considers the expertise of the Tumor Board Recommendation in formulating his/her plan for the patient. However, in many situations, based on individualized patient considerations, a different plan is determined by the treating physician to be the optimal medical management. Electronic Signatures: Aracely De Leon (PT REG) (Signed 09-Mar-2018 07:21) Authored: Tumor Board, Cancer Staging, Disclaimer Last Updated: 09-Mar-2018 07:21 by Aracely De Leon (PT REG) PROGRESS Observed: 02/28/2018 Status: COMPLETED Source: [facility] 1:45 PM [facility] [place] REPOSITORY HNO ID: [id number] Author: [place] Mauro Service: (none) Author Type: Physician Type: Progress Notes Filed: 02/28/2018 2:21 PM Note Text: [facility] LuAbelardo DO KAILEE MAURO Name: Cassie Hill She is 1 week post bilateral breast reconstruction. Her GERONIMO drainage is minimal and we are going to pull her drains. We have instructed her on post drain care and to moisturize her breast mounds. She has a follow-up appointment with Dr. Mathis in 1 week. I will reevaluate her in approximately 3 weeks and we will review expansion. She understands that she must be 100% expanded I the time she has to undergo radiation. Any concerns or questions prior to next appointment, patient is to call office or return sooner. [place] Mauro DO February 28, 2018 This note was generated with voice recognition software and may contain errors, including spelling, grammar, syntax and misrecognition of what was dictated, that are not fully corrected. DISCHARGE PLANNING Observed: 02/23/2018 Status: UNK Source: [facility] 2:56 PM [facility]ITALS REPOSITORY Patient Learning: ? Factors that Impact Ability to Learn none(1) Other Learner: ? Learner spouse(1) ? Factors that Impact Ability to Learn none(1) Other Factors: ? Functional Screen: In the recent/past 2-4 weeks, patient or family have noticed no issues that require a rehabilitation consult at this time(1) Discharge Planning: Discharge Plannin02/23/18-0036-Pt lives at home with her . Independent at baseline. Pt POD #2 from mastectomy. Pt has had low BP and that is a concern for pt and family. Pt will be discharged with GERONIMO drains. Bedside RN will show pt and family how to empty drains. MD, pt, and family agreeable to home appliance washing machine mechanic/INSTALLER INSPECTOR FINAL. [facility] ([phone]) accepted this pt. Pts mother made aware since pt was sleeping. Pts mother will be staying with her for 2 weeks to help out with any needs. Plan for discharge today. Derek Lucas RN/cc. Electronic Signatures: Silvano Lucas (STAFF N) (Signed 23-Feb-2018 15:05) Authored: Discharge Planning Note Last Updated: 23-Feb-2018 15:05 by Silvano Lucas (STAFF N) References: 1. Data Referenced From Admission Risk Screen - Adult 02/21/2018 6:08 PM DISCHARGE SUMMARY Observed: 02/23/2018 Status: COMPLETED Source: [facility] 12:40 PM HOSPITALS REPOSITORY Send Summary: Discharge Summary Providers: Provider Role Provider Name ? Referring Lalitha Mathis ? Primary Sharda Giraldo ? Specialist Lalitha Mathis Note Recipients: Lalitha Mathis MD - [id number] [Preferred] Sharda Giraldo PAC - [phone] [] Discharge: Summary: Admission Date: .21-Feb-2018 07:55:00 Discharge Date: 23-Feb-2018 Attending Physician at Discharge: Dayton Mauro Admission Reason: post-op care Final Discharge Diagnoses: breast cancer Procedures: Date: 21-Feb-2018 12:02:00 Procedure Name: bilateral stage I breast reconstruction with tissue expanders and alloderm Date: 21-Feb-2018 12:46:00 Procedure Name: Right NS SM, magseed localized ALND; Lt prophylactic NS SM Condition at Discharge: Satisfactory Disposition at Discharge: .Home Vital Signs: T P R BP SpO2 Value 37.1 61 20 122/72 100% Date/Time 02/23 7:57 02/23 10:00 02/23 10:00 02/23 10:00 02/23 10:00 Range (36.2C - 37.2C ) (60 - 71 ) (16 - 20 ) (101 - 122 )/ (44 - 72 ) (95% - 100% ) Highest temp of 37.2 C was recorded at 02/23 4:18 Physical Exam: GEN: NAD HEENT: MMM HEART: +s1, +S2 LUNGS: equal chest rise b/l EXT: no c/ce NEURO: AAOX3 BREASTS: flaps with capillary refill <2sec, warm, Hospital Course: Patient presented to [facility] for an elective bilateral breast mastectomy and breast reconstruction. Procedure was without complications and patient tolerated well. Post-op patient was admitted for poast-op care. Orders included post-op antibiotics, symptomatic tx, and GERONIMO drain training. POD#2, patient was tolerating a regular diet and pain controlled; therefore, patient was deemed stable for discharge home by attending. Discharge Information: and Continuing Care: Discharge Instructions: Activity: activity as tolerated. May not shower. while drains are in place May not drive while taking narcotics. No pushing, pulling, or lifting objects greater than 10 pounds. Nutrition/Diet: regular Wound Care: Wound Site: bilateral breast incisions Wound Type: surgical incision Change Dressing: as needed daily Apply: ABDs..change to keep clean and dry. Other Instructions: no not remove steri-strips. Wear surgical bra at all times. GERONIMO drain care. Drain/Tube Care: Type: GERONIMO (Eliezer Chairez) Site: bilateral breasts Suction: continuous Dress With: 4x4 gauze dressing Frequency: daily and as needed Other Instructions: empty and record output every 8 hours and as needed. Home Care Certification: Skilled Disciplines Ordered: RN/INSTALLER INSPECTOR FINAL Follow Up Appointments: Follow-Up Appointment 01: Physician/Dept/Service: Dr. Dayton Mauro, Plastic Surgery Call to Schedule in: Office requests you call to schedule appointment Location: [address] [place] [address] [address] [place] [address] Follow-Up Appointment 02: Physician/Dept/Service: Dr. Lalitha Mathis, Surgical Oncology Scheduled Date/Time: 05-Mar-2018 11:45 Location: [facility], [address] [place] [address], [address], [place] [address] Discharge Medications: Home Medication digestive enzymes/hyoscyamine/phenyltoloxamine oral capsule - 1 cap(s) orally once a day Keflex 500 mg oral capsule - 1 cap(s) orally every 8 hours PRN Medication Zofran ODT 4 mg oral tablet, disintegrating - 1 tab(s) orally every 8 hours, As Needed -for nausea Colace 100 mg oral capsule - 1 cap(s) orally 2 times a day, As Needed -for constipation Percocet 5/325 oral tablet - 1 tab(s) orally every 4 hours, As Needed -for pain Valium 5 mg oral tablet - 1 tab(s) orally every 8 hours, As Needed -for spasms Lab Results - Pending: None Radiology Results - Pending: Mamm Ultrasound Guided Needle (or other device) Localization at 21-Feb-2018 00:00:00 Electronic Signatures: Dayton Mauro) (Signed 23-Feb-2018 12:43) Authored: Send Summary, Summary Content, Ongoing Care, Signature/Cosignature/Attestation Last Updated: 23-Feb-2018 12:43 by Dayton Mauro () DAILY PROGRESS Observed: 02/23/2018 Status: COMPLETED Source: [facility] 12:35 PM [facility]OSPITALS REPOSITORY Service: Plastic Surgery Subjective Data: CASSIE HILL is a 32 year old Female who is Hospital Day # 3 and POD #2 for Right NS SM, magseed localized ALND; Lt prophylactic NS SM. Additional Information: Patient seen and examined. Complains of pain with movement. Intermittent hypotension, likely secondary to pain medication..plan to wean pain medication. N/V improved. Objective Data: Objective Information: T P R BP SpO2 Value 37.1 61 20 122/72 100% Date/Time 02/23 7:57 02/23 10:00 02/23 10:00 02/23 10:00 02/23 10:00 Range (36.2C - 37.2C ) (60 - 71 ) (16 - 20 ) (101 - 122 )/ (44 - 72 ) (95% - 100% ) Highest temp of 37.2 C was recorded at 02/23 4:18 Pain with Activity reported at 02/23 5:45: 7 Physical Exam: Constitutional: NAD ENMT: MMM Respiratory/Thorax: equal chest rise b/l Cardiovascular: +s1, +s2 Musculoskeletal: UE and LE from Neurological: AA0X3 Breast: bilateral breasts with flaps with capillary refill <2sec, warm, incisions C/D/I Assessment and Plan: Medical History: Breast cancer, right: Entered Date: 22-Aug-2017 17:06 Impression 1: S/P: stage I breast reconstruction with alloderm and expanders (POD#2) Plan for Impression 1: -symptomatic tx -wean pain medications -diet: ADAT to regular -monitor BP -GERONIMO drain training -monitor I&Os -plan for discharge today Electronic Signatures: Dayton Mauro () (Signed 23-Feb-2018 12:38) Authored: Service, Subjective Data, Objective Data, Assessment and Plan, Signature/Cosignature/Attestation Last Updated: 23-Feb-2018 12:38 by Dayton Mauro () DAILY PROGRESS Observed: 02/22/2018 Status: COMPLETED Source: [facility] 8:21 AM HOSPITALS REPOSITORY Service: Plastic Surgery Subjective Data: CASSIE HILL is a 32 year old Female who is Hospital Day # 2 and POD #1 for Right NS SM, magseed localized ALND; Lt prophylactic NS SM. Additional Information: Patient seen and examined. Nausea/vomiting overnight. Denies F/CP/SOB/change in BM or urination Objective Data: Objective Information: T P R BP SpO2 Value 37 73 16 109/63 100% Date/Time 02/22 7:19 02/22 7:19 02/22 7:19 02/22 7:19 02/22 7:19 Range (36.5C - 37.4C ) (68 - 74 ) (16 - 18 ) (109 - 136 )/ (52 - 73 ) (98% - 100% ) Highest temp of 37.4 C was recorded at 02/21 23:41 Pain with Activity reported at 02/21 22:07: 9 Pain at Rest reported at 02/21 22:07: 9 T P R BP SpO2 Value 37 73 16 109/63 100% Date/Time 02/22 7:19 02/22 7:19 02/22 7:19 02/22 7:19 02/22 7:19 Range (36.5C - 37.4C ) (68 - 74 ) (16 - 18 ) (109 - 136 )/ (52 - 73 ) (98% - 100% ) Highest temp of 37.4 C was recorded at 02/21 23:41 Physical Exam: Constitutional: NAD ENMT: MMM Respiratory/Thorax: equal chest rise b/l Cardiovascular: +s1, +s2 Musculoskeletal: UE and LE from Neurological: AA0X3 Breast: bilateral breasts with flaps with capillary refill <2sec, warm, incisions C/D/I Assessment and Plan: Medical History: Breast cancer, right: Entered Date: 22-Aug-2017 17:06 Impression 1: S/P: stage I breast reconstruction with alloderm and expanders (POD#1) Plan for Impression 1: -symptomatic tx -add phenergan -continue zofran -diet: ADAT to regular + IVF -GERONIMO drain training -monitor I&Os -plan for discharge tomorrow Electronic Signatures: Dayton Mauro () (Signed 22-Feb-2018 08:28) Authored: Service, Subjective Data, Objective Data, Assessment and Plan, Signature/Cosignature/Attestation Last Updated: 22-Feb-2018 08:28 by Dayton Mauro () PATIENT PROFILE - Observed: 02/21/2018 Status: UNK Source: [facility] V[facility] 6:13 PM HOSPITALS REPOSITORY Profile: Initial Info: How to be Addressed ashadee(1) Spoken Language Preferred Mauritian (1) Are you currently using the Personal Electronic Health Record or [employer] no (1) Stated Reason for Admission mastectomy Arrived From OR Patient Belongings remains with patient Medications Brought to Hospital no General Health: Weight in kg 77.1 kilogram(s) Weight in lbs 170 pound(s) Height in feet 5 feet Height in inches 9 inch(es) Height in cm 175.2 centimeter(s) BMI (kg/m2) 25.118 square meter Weight Method stated Scale Type standing Height Method stated Blood Avoidance/Restrictions none(1) Previous Transfusion Reaction no(1) RSP Based Care: How would you like to participate in your care? none What is the number one concern for you during this hospitalization? none What is the most important thing we can do to support you during this hospitalization? pain control Is there anything we need to know to best care for you? no Substance: Current or Former Substance Use never: Cigarette/Tobacco(1), Alcohol(1), Street Drugs(1) Health Mgmt: Symptoms/Conditions Managed at Home cancer Are You Currently no (2) Cancer Management managed Are You no (2) Relationship/Environ: Primary Source of Support/Comfort spouse; parent Lives With spouse Living Arrangements house Resource/Environmental Concerns none Anticipated Transition To home Services Anticipated at Transition none Significant Indicators Complete Information Review: ? Allergies, Home Meds and Significant Events have been Reviewed and Verified with Patient/Family yes ALLERGY, INTOLERANCE, ADVERSE EVENT: Allergies: ? morphine: Drug, Rash, Active ? paclitaxel: Drug, Unknown, Active Electronic Signatures: Nirmal Valdez (RN) (Signed 21-Feb-2018 18:16) Authored: Profile, Additional Information Last Updated: 21-Feb-2018 18:16 by Nirmal Valdez (RN) References: 1. Data Referenced From Patient Profile - Preop v2 02/21/2018 9:02 AM 2. Data Referenced From History and Physical - Surgery > 30 days 02/21/2018 9:03 AM ADMISSION RISK SCREEN Observed: 02/21/2018 Status: UNK Source: UNIVERSITY - ADULT 6:08 PM HOSPITALS REPOSITORY Allergies: Allergies: ? morphine: Rash ? paclitaxel: Unknown Adverse Events: ? paclitaxel: Chest Pain Patient Verification: ? New W ID Band Applied in my Department yes ? Patient Identity Verified By patient ? ID Band FULL Name, include Middle, spelling matches patient's ID used for verification yes ? ID Band Matches Patient ID used for Verfication yes ? ID Band MRN Matches EMR MRN yes Advance Directive: ? Advance Directive Medical yes (1) ? Advance Directive type Living Will, Durable Power of Pediatric Speech Therapist for Healthcare(1) ? Living Will Availability Living Will not available now ? Living Will Requested 21-Feb-2018 ? Durable Power of Pediatric Speech Therapist Availability DPOA not available now ? Durable Power of Pediatric Speech Therapist Requested 21-Feb-2018 ? Durable Power of Pediatric Speech Therapist contact (name and number) [email or web address] [phone]) ? Advance Directive Mental Health not applicable Falls Screen: Type of Assessment admission Moderate Risk Factors nursing judgment (specify) High Risk Factors nursing judgment (specify) Risk for Injury Associated with Fall risk of surgical complications post surgery (recent abdominal, thoracic surgery, lower limb amputation) Fall Risk Conclusion high falls risk with low risk for associated injury [place] Safety Interventions WDL *orient to call system *instruct to call for assistance before getting out of bed *non-slip footwear when patient is out of bed *call gilbert in reach *personal items and telephone in reach *physically safe environment (no spills or clutter) *bed in lowest position with wheels locked *appropriate side rails in place *room/bathroom lighting operational, light cord in reach *appropriate signage on door, non-slip footwear when patient is out of bed Family Violence Screen: ? Are you or have you been threatened or abused physically, emotionally, or sexually by anyone? no ? Do you feel UNSAFE going back to the place where you are living? no ? Clinical assessment: Are there any apparent signs of injuries/behaviors that could be related to abuse/neglect no ? Social Service Consult for abuse/neglect needed this visit? no Functional screen: ? Functional Screen: In the recent/past 2-4 weeks, patient or family have noticed no issues that require a rehabilitation consult at this time Learning Assessment (Patient): ? Patient is Able to be Assessed for Learning yes ? Factors Influencing Readiness to Learn pain ? Factors that Impact Ability to Learn none ? Devices/Methods Used to Communicate none ? Learning Preferences verbal instruction ? Cultural Considerations none ? Developmental Considerations none ? Mandaeism Considerations none ? Other Learners spouse Learning Assessment (Other Learner): ? Other learner available yes... ? Learner spouse ? Factors Influencing Readiness to Learn pain ? Factors that Impact Ability to Learn none ? Devices/Methods Used to Communicate none ? Learning Preferences verbal instruction ? Cultural Considerations none ? Developmental Considerations none ? Mandaeism Considerations none Suicide/Depression Screen: ? During the past month, have you often been bothered by feeling down, depressed or hopeless? no (1) ? During the past month, have you often had little interest or pleasure in doing things? no (1) ? Have you had any thoughts of harming yourself? no (1) ? Have you had any thoughts of harming anyone else? no (1) Adult Nutrition Screen: ? Have you recently lost weight without trying no ? Have you been eating poorly because of a decreased appetite no ? MST Score 0 ? Risk MST = 0 or 1 Not at risk. Eating well with little or no weight loss ? Nutrition Consult needed this visit? no ? Can Patient Participate in Room Service? yes ? Patient requires Paper Dishes/Plastic Utensils no Pain Screen: ? Pain Scale numerical 0-10 (1) ? Pain Scale Education teaching provided (1) ? Current Pain Level 7 = Severe ? Acceptable Pain Level 2 = Mild ? Expression of Pain (nonverbal) none ? Chronic Pain no (1) Spiritual Screen: ? Are there any cultural, spiritual, congregational practices/values/needs that are important for us to know? no CAGE: Is this an injured [place] a [place] Center [place] [place] no Vaccinations: Vaccination - Influenza Vaccination Screen: ? Is it flu season? (between and ) No Vaccination - Pneumonia Vaccination Screen: ? Patient has received a previous pneumonia vaccine: no/unknown... ? Immunocompetent persons with underlying chronic conditions or reside in assisted care facilities none of these conditions ? Persons with Functional or Anatomic Asplenia none of these conditions ? Immunocompromised Persons none of these conditions ? Pneumonia vaccine NOT indicated due to: patient DOES NOT have a condition that indicates vaccination Blu: Skin - Blu Scale: ? Blu: Sensory Perception (response to environment) (3) slightly limited ? Blu: Moisture (degree skin exposed to moisture) (4) rarely moist ? Blu: Activity (ability to walk) (3) walks occasionally ? Blu: Mobility (amount/control of body movement) (3) slightly limited ? Blu: Nutrition (quality of food intake) (3) adequate ? Blu: Friction and Shear (3) no apparent problem ? Blu: Score 19 Significant Indicatiors: Significant Indicators: Complete Pressure Injury: Pressure Injury Present on Admission no Electronic Signatures: Nirmal Valdez (ELLI) (Signed 21-Feb-2018 18:13) Authored: Admission Risk Screens, Vaccinations, Blu, Pressure Injury Last Updated: 21-Feb-2018 18:13 by Nirmal Valdez (ELLI) References: 1. Data Referenced From Patient Profile - Preop v2 02/21/2018 9:02 AM DISCHARGE PROFILE2 Observed: 02/21/2018 Status: [facility] Source: [facility] 12:05 PM [facility] REPOSITORY Discharge Orders: Anticipated Discharge Date: ? Anticipated Discharge Date 22-Feb-2018 ? Anticipated Discharge Time 09:00 Problem List: Medical History: ? Breast cancer, right: Catalog Name: Malignant neoplasm of unspecified site of right female breast Significant Events: Surgical Procedure: Clinical Events This Visit, 21-Feb-2018, bilateral stage I breast reconstruction with tissue expanders and alloderm [facility] Providers: Provider Role Provider Name ? Attending Dayton Mauro Activity: activity as tolerated. May not shower while drains are in place. May not drive while taking narcotics. No pushing, pulling, or lifting objects greater than 10 pounds. Diet: ? Diet regular Wound Care 1: ? Wound Site bilateral breast incisions ? Wound Type surgical incision ? Change Dressing as needed daily ? Apply ABDs..change to keep clean and dry. ? Other Instructions no not remove steri-strips. Wear surgical bra at all times. GERONIMO drain care. Drain/Tube Care 1: ? Type GERONIMO (Eliezer Chairez) ? Site bilateral breasts ? Suction continuous ? Dress With 4x4 gauze dressing ? Frequency daily and as needed ? Other Instructions empty and record output every 8 hours and as needed. Call Provider If (Homegoing Patients): Fever of 100.4 F (38 C) or higher. Any new concerning symptoms. Hospital Course (Home Care/Gold Form): Hospital Course: ? Hospital Course: include significant abnormal lab values Patient presented to [facility] for an elective bilateral breast mastectomy and breast reconstruction. Procedure was without complications and patient tolerated well. Post-op patient was admitted for poast-op care. Orders included post-op antibiotics, symptomatic tx, and GERONIMO drain training. POD#2, patient was tolerating a regular diet and pain controlled; therefore, patient was deemed stable for discharge home by attending. Home Care Orders: Face to Face Certification: Home Care Services Needed: yes Home Care Agency: Other (with phone number) [facility] - [phone] Skilled Disciplines Ordered: RN/INSTALLER INSPECTOR FINAL Face to Face Encounter Completed: yes Date of Encounter: 23-Feb-2018 Medical Necessity for Homecare (based on clinical findings): Short-term nurse is needed to instruct patient/caregiver to perform wound care dressing changes, check blood pressure, and to monitor for signs and symptoms of infection or adverse events. Homebound Status: homebound Homebound Due to:: Patient has open wound and GERONIMO drains to the bilateral breasts status post-surgical mastectomy procedure and leaving the home is medically contraindicated. Face to Face Certification and Home Care Orders Reviewed: I certify that this patient is under my care. I have reviewed the information included in the face to face and certify that the home care services ordered are medically necessary for this patient. Provider FINAL REVIEW of Orders: Final Review: ? Final Review of Medication Reconciliation and Orders Completed by Physician ? Reviewing Provider Dayton Mauro DO at 23-Feb-2018 12:44:46 ? Name/Contact Info for Questions About Discharge Orders Cira Cardenas DO ([id number]) Appointments: Follow-Up Appointment 01: ? Physician/Dept/Service Dr. Dayton Mauro, Plastic Surgery ? Call to Schedule in Office requests you call to schedule appointment ? Location [address] [place], [place] [address], [place] [address] ? ? Comments Please call the office with in 24 hours with a drain report. Follow-Up Appointment 02: ? Physician/Dept/Service Dr. Lalitha Mathis, Surgical Oncology ? Scheduled Date/Time 05-Mar-2018 11:45 ? Location [facility], [address], [facility], [place], [place] [address] ? ? Comments Please arrive 10-15 minutes early, bring photo ID, insurance cards, discharge summary, and a list of current medications. Please call the office if you need to change this appointment. Electronic Signatures: Dayton Mauro () (Signed 23-Feb-2018 12:44) Authored: Discharge Orders, Hospital Course (Home Care/Gold Form), Home Care Orders, Provider FINAL REVIEW of Orders, Gold Form - Director Of Creative Services Summary Nestor January (CN) (Signed 23-Feb-2018 12:35) Authored: Home Care Orders, Provider FINAL REVIEW of Orders Silvano Lucas (STAFF N) (Signed 23-Feb-2018 14:56) Authored: Home Care Orders Jinny Childs (PT ACC REP) (Signed 22-Feb-2018 15:25) Authored: Appointments Last Updated: 23-Feb-2018 14:56 by Silvano Lucas (STAFF N) POST OPERATIVE NOTE - Observed: 02/21/2018 Status: COMPLETED Source: [facility] OR 12:02 PM HOSPITALS REPOSITORY Post Operative Note: PreOp Diagnosis: right breast cancer Post-Procedure Diagnosis: same Procedure: bilateral stage I breast reconstruction with tissue expanders and alloderm Surgeon: Dr. Mauro Resident/Fellow/Other Global Sourcing Manager: Dr. Cardenas Anesthesia: LIZBETH Estimated Blood Loss (mL): 20 Specimen: no Complications: none Findings: see operative report Patient Returned To/Condition: PACU Drains and/or Catheters: GERONIMO x 2 Implants: tissue expanders x2 alloderm x2 Operative Report Dictated: Dictation: yes Dictated by: Dr. Mauro Date of Dictation: 21-Feb-2018 Signature/Cosignature/Attestation: Attending Attestation I was present for the entire procedure Electronic Signatures: Dayton Mauro () (Signed 21-Feb-2018 14:53) Authored: Post Operative Note, Signature/Cosignature/Attestation Last Updated: 21-Feb-2018 14:53 by Dayton Mauro () [facility] SURGICAL PATHOLOGY Observed: 02/21/2018 Status: F Source: UNIVERSITY DEPARTMENT 10:53 AM HOSPITALS REPOSITORY Name [facility]SIE [facility] Pathologist: ALBERTO TRIPLETT MD Date of Procedure: 02/21/2018 Date Received: 02/21/2018 Date Reported 02/27/2018 Submitting Physician: LALITHA MATHIS MD Location: [facility] External # [id number] FINAL DIAGNOSIS A. LEFT BREAST NIPPLE CORE, BIOPSY: --BENIGN BREAST TISSUE. B. LEFT BREAST, SKIN AND NIPPLE SPARING MASTECTOMY: --BENIGN BREAST TISSUE. C. RIGHT SENTINEL LYMPH NODE #1, EXCISION: --METASTATIC CARCINOMA PRESENT IN ONE LYMPH NODE (10/30), SEE NOTE. --PREVIOUS BIOPSY SITE CHANGES. Note: The metastatic carcinoma measures up to 0.3 cm in greatest dimension. No extranodal extension is identified. D. RIGHT SENTINEL LYMPH NODE #2, EXCISION: --TWO LYMPH NODES, NO MALIGNANCY IDENTIFIED (0/2). E. RIGHT NIPPLE CORE, BIOPSY: --BENIGN BREAST TISSUE. F. RIGHT AXILLARY CONTENTS, EXCISION: --SIX LYMPH NODES, NO MALIGNANCY IDENTIFIED (0/6). G. RIGHT BREAST, SKIN AND NIPPLE SPARING MASTECTOMY: --INVASIVE DUCTAL CARCINOMA PRESENT AFTER NEOADJUVANT CHEMOTHERAPY. --EXTENSIVE DUCTAL CARCINOMA IN SITU WITH ASSOCIATED CALCIFICATIONS. --SEE SYNOPTIC REPORT. H. RIGHT BREAST, ANTERIOR LATERAL MARGIN NEW MARGIN, EXCISION: --BENIGN FIBROADIPOSE TISSUE. I. MEDIPORT-EXPLANT: --GROSS EXAMINATION ONLY. The gross and/or microscopic findings were reviewed in conjunction with pathology resident, Loyl Valle DO. CANCER SUMMARY REPORT Invasive Breast Cancer Staging According to [place] Joint Committee on Cancer Staging Manual 8th Edition Macroscopic: Specimen: Breast Procedure: Total mastectomy Lymph node sampling: Parlin lymph node(s) and axillary dissection Specimen Integrity: Multiple designated specimens Specimen Laterality: Right Specimen Size: Total mastectomy Tumor site: Upper outer quadrant Tumor size: Greatest dimension 0.9 cm Macroscopic and Microscopic Extent of Tumor: Tumor focality: Single focus of invasive carcinoma Skin and Nipple: No skin or nipple present Skeletal muscle: No skeletal muscle present Histologic Type: Invasive ductal carcinoma Histologic grade: [place] Histologic Score: Tubule Formation: Minimal less than 10 % (score = 3) Nuclear pleomorphism: Marked increase in size (score = 3) Mitotic count: 0 to 5 mitoses per 10 HPF (score = 1) Total Antonio Score: Grade II: 6 - 7 points Lymphatic Vessel invasion: Indeterminate Ductal Carcinoma In Situ: Present Nuclear Grade: High Architectural patterns: Solid and Cribriform Necrosis: Present Extensive Intraductal Component (EIC): Present Lobular Carcinoma in Situ: Absent Microcalcifications: Present in DCIS Margins: Invasive Carcinoma: Negative Ductal Carcinoma In situ: Negative Extent of Invasion: TNM descriptors: y (post-treatment) Primary Tumor (pT): pT1b: Tumor more than 0.5 cm but not more than 1.0 cm in greatest dimension Lymph nodes: Number Examined: 9 Number with macrometastases (>0.2 cm): 1 Number with micrometastases (>0.2 mm) to 0.2 cm and/or >200 cells): 0 Number with isolated tumor cells (<= 0.2 mm and <= 200 cells): 0 Size of largest metastasis: 0.3 cm Extranodal extension: Not identified Regional Lymph Nodes (pN): pN1a: Metastasis in 1-3 axillary lymph nodes, at least one metastasis larger than 2 mm Distant metastasis (pM): pM: Unknown Estrogen Receptor: See prior report: [id number] Progesterone Receptor: See prior report: [id number] HER2: See prior report: [id number] Biopsy site change: Yes Additional pathologic findings: Atypical ductal hyperplasia Comment: Only minimal therapy related changes are present in the breast tissue and involved lymph node. The uninvolved lymph nodes are unremarkable. [facility] Breast: Invasive Additional Testing: Tumor Block: G1 Electronically Signed Out By ALBERTO TRIPLETT MD/CHARLY By the signature on this report, the individual or group listed as making the Final Interpretation/Diagnosis certifies that they have reviewed this case. Intraoperative Consultation: C: RIGHT SENTINEL LYMPH NODE #1 Frozen Section 1: Date Ordered: 02/21/2018 11:27 Date Received: 02/21/2018 11:27 Date Called: 02/21/2018 11:31 Intraoperative Diagnosis: Positive for metastatic carcinoma. Intraoperative Consult Pathologist(s): MIRIAM MOSER MD, PhD (P) D: RIGHT SENTINEL LYMPH NODE #2 Frozen Section 1: Date Ordered: 02/21/2018 11:31 Date Received: 02/21/2018 11:31 Date Called: 02/21/2018 11:51 Intraoperative Diagnosis: Two lymph nodes negative for metastatic carcinoma in planes of section examined. Intraoperative Consult Pathologist(s): MIRIAM MOSER MD, PhD (P) ck/02/22/2018 Clinical History: Breast cancer Specimens Submitted As: A: LEFT BREAST NIPPLE CORE B: LEFT BREAST C: RIGHT SENTINEL LYMPH NODE #1 D: RIGHT SENTINEL LYMPH NODE #2 E: RIGHT NIPPLE CRE F: AXILLARY CONTENTS G: RIGHT BREAST H: RIGHT BREAST ANTERIOR LATERAL MARGIN NEW MARGIN I: MEDIPORT-EXPLANT Other Case Numbers [id number] Gross Description: A: Received in formalin, labeled with the patient's name and hospital number and A. Left nipple breast core, is a segment of fibrofatty tissue measuring 1.0 x 0.5 x 0.2 cm. The specimen is submitted in toto in one cassette. CKG B: Received in formalin, labeled with the patient?s name and hospital number and B. left breast, is left mastectomy specimen, 14.0 [superior inferior] x 12.4 [medial lateral] x 2.3 [anterior posterior] cm and weighs 251.88 grams. A skin ellipse is not present. The specimen is oriented with a short superior and a long lateral stitch. The specimen is inked in the following manner: anterior yellow and posterior black. Cross sections reveal lobulated fibrofatty tissue. No gross lesions are identified. Multiple cross sections through the axillary-most end does not reveal the presence of lymph nodes. Volunteer Services Specialist sections are submitted in [address] [facility] NOTE: Ischemia time: 1117. This specimen was placed into formalin at: Not provided. C: Received fresh for an intra-operative consultation, labeled with the patient's name, number, and C. right sentinel lymph node, is a fragment of yellow adipose tissue measuring 3.5 x 2.0 x 1.7 cm. The specimen is previously stained blue. The specimen is dissected. Biopsy site with biopsy clip is present. A single lymph node is identified measuring 2.5 cm in greatest dimension. The lymph node is bisected. A touch preparation is made. The lymph node is entirely submitted for frozen section into one cassette. The specimen is entirely submitted into two cassettes. XL Summary of cassettes:C1: Frozen section, bisected lymph node C2: Remaining fat D: Received fresh for an intra-operative consultation, labeled with the patient's name, number, and D. right sentinel lymph node 2, is a fragment of yellow adipose tissue measuring 2.0 x 1.5 x 0.9 cm. The specimen is dissected. Two lymph nodes are identified measuring 0.7 cm and 0.6 cm in greatest dimension. The lymph nodes are entirely submitted for frozen section into one cassette. The specimen is entirely submitted into two cassettes. XL Summary of cassettes:D1: Frozen section, two lymph nodes D2: Remaining fat E: Received in formalin, labeled with the patient's name and hospital number, is a segment of fibrofatty tissue measuring 1.0 x 0.5 x 0.3 cm. The specimen is submitted in toto in one cassette. CKG F: Received in formalin, labeled with the patient's name and hospital number and F. Right axillary contents, are multiple segments of yellow fibroadipose soft tissue aggregating to 8.2 x 5.6 x 1.2 cm. Upon palpation, multiple possible lymph nodes are identified ranging in size from 0.2 cm to 1.2 cm. The possible lymph nodes are entirely submitted in 3 cassettes. CKG G: Received in formalin, labeled with the patient?s name and hospital number and G. right breast, short superior, long lateral, white is nipple, is right mastectomy specimen, 15.0 [superior inferior] x 14.1 [medial lateral] x 2.3 [anterior posterior] cm and weighs 251.11 grams. A skin ellipse is not present. The specimen is oriented with a white stitch at the nipple, short superior and a long lateral stitch. The specimen is inked in the following manner: anterior yellow and posterior black. Cross sections reveal a firm, pisano-white mass, 0.6 x 0.2 x 0.2 cm, in the upper outer quadrant. The mass is 2.0 cm from the anterior margin, 0.6 cm from the posterior margin, 5.0 cm from the superior margin, 5.2 cm from the inferior margin, 10.6 cm from the medial margin, and 2.3 cm from the lateral margin. The remainder of the breast parenchyma is yellow-white. No other lesions are identified. Multiple cross sections through the axillary-most end does not reveal the presence of lymph nodes. Volunteer Services Specialist sections are submitted in 11 cassettes. CKG NOTE: Ischemia time: 1227. This specimen was placed into formalin at: 1500. H: Received in formalin, labeled with the patient's name and hospital number and H. right breast anterior lateral margin, Hany marked new margin, is an irregular segment of yellow lobulated fibrofatty tissue, 4.6 x 3.2 x 0.7 cm. The specimen is oriented with a clip on the new margin. In the margin is inked black. The specimen is serially sectioned to reveal a homogeneous fatty cut surface. No lesion is identified. The specimen is entirely submitted in 3 cassettes. CKG I: Received fresh, labeled with the patient's name and hospital number and I. mediport explant, is a plastic single chamber port device measuring 2.8 x 2.2 x 1.2 cm with an attached catheter measuring 14.5 cm in length and 0.2 cm in diameter. Tissue is not received with the specimen. A photograph has been taken. This specimen is for Gross only. CK Summary of Cassettes: Specimen Label Site B 1 upper outer quadrant, ambulatory service representative sections 2 lower outer quadrant, ambulatory service representative sections 3 lower inner quadrant, ambulatory service representative sections 4 upper inner quadrant, ambulatory service representative sections F 1 multiple possible lymph nodes 2 2 possible lymph nodes 3 one lymph node, serially sectioned G 1 mass, entirely submitted 2-6 areas surrounding the mass, ambulatory service representative sections 7 upper outer quadrant, ambulatory service representative sections 8 lower outer quadrant, ambulatory service representative sections 9 lower inner quadrant, ambulatory service representative sections 10 upper inner quadrant, ambulatory service representative sections 11 nipple area ckg/02/22/2018 Performed By: #### [facility] #### [facility] Surgical Pathology Department [id number] [address] [facility] [id number] INJECTION ONLY FOR Observed: 02/21/2018 Status: F Source: UNIVERSITY SENTINAL NODE BIOPSY, 9:51 AM HOSPITALS REPOSITORY NO SCAN PERFORMED Patient Name: CASSIE HILL STUDY: INJECTION ONLY FOR SENTINAL NODE BIOPSY, NO SCAN PERFORMED; 02/21/2018 9:51 am INDICATION: Signs/Symptoms: breast ca. COMPARISON: None. ACCESSION NUMBER(S): [id number] ORDERING CLINICIAN: LALITHA MATHIS TECHNIQUE: DIVISION OF NUCLEAR MEDICINE BREAST SENTINEL NODE LOCALIZATION Syringes containing a total of 0.5 millicuries of Tc-99m tilmanocept (Lymphoseek) were delivered to the Breast Center for injection and sentinel lymph node localization to be performed by the patient's attending breast surgeon at lymph node dissection/biopsy. FINDINGS: No images were obtained. IMPRESSION: Breast carcinoma undergoing peritumoral Tc-99m tilmanocept (Lymphoseek) injection for intraoperative sentinel lymph node localization. I personally reviewed the images/study and I agree with the findings as stated. This study was interpreted at [facility], [place], [place]. Electronically signed by: SASHA LOMELI MD PATIENT PROFILE - Observed: 02/21/2018 Status: UNK Source: UNIVERSITY PREOP V2 9:02 AM HOSPITALS REPOSITORY Profile: Initial Info: How to be Addressed ashadee Spoken Language Preferred Mauritian Source of Information patient Are you currently using the Personal Electronic Health Record or [email or web address] no Are you interested in learning more about [employer] for the management of your health not at this time Stated Reason for Admission double mastectomy Primary Contact Name and Number [phone] Limitations on Visitors/Phone Calls none Patient Belongings none Medications Brought to Hospital no General Health: Weight in kg 78.6 kilogram(s) Weight in lbs 173.2 pound(s) Weight Method actual (measured) Scale Type standing Height in cm 175.2 centimeter(s) Height in feet 5 feet Height in inches 9 inch(es) Height Method stated BMI (kg/m2) 25.606 square meter Patient or Family Member Reaction to Anesthesia no previous reaction Blood Avoidance/Restrictions none Previous Transfusion Reaction no Health Mgmt: Symptoms/Conditions Managed at Home heart murmur, ANEMIA, THALASSEMIA, RIGHT BREAST CA SX: RIGHT OOPHORECTOMY, OVARIAN CYST REMOVED, SCOLIOSIS SURGERY Are You Currently yes Are You no Barriers to Managing Health none Relationship/Environ: Lives With spouse Living Arrangements house Resource/Environmental Concerns none Anticipated Transition To home Services Anticipated at Transition none Substance: Current or Former Substance Use never: Cigarette/Tobacco, Alcohol, Street Drugs Risk Screens: Advance Directive Medical yes Advance Directive type Living Will, Durable Power of Pediatric Speech Therapist for Healthcare Living Will Availability Living Will not available now Living Will Requested 21-Feb-2018 Durable Power of Pediatric Speech Therapist Availability DPOA not available now Durable Power of Pediatric Speech Therapist Requested 21-Feb-2018 Durable Power of Pediatric Speech Therapist contact (name and number) jayden [phone] During the past month, have you often been bothered by feeling down, depressed or hopeless? no During the past month, have you often had little interest or pleasure in doing things? no Have you had any thoughts of harming yourself? no Have you had any thoughts of harming anyone else? no Patient is Able to be Assessed for Learning yes Factors Influencing Readiness to Learn interest in learning Factors that Impact Ability to Learn none Devices/Methods Used to Communicate none Learning Preferences skill demonstration; verbal instruction; written material Cultural Considerations none Developmental Considerations none Mandaeism Considerations none Other learner available no Falls Risk Patient location auto qualifies him/her for HIGH RISK. Are there any cultural, spiritual, congregational practices/values/needs that are important for us to know? no Pain Scale numerical 0-10 Pain Scale Education teaching provided Current Pain Level 0 = None Acceptable Pain Level 6 = Moderate Chronic Pain no Information Review: ? Allergies, Home Meds and Significant Events have been Reviewed and Verified with Patient/Family yes Allergy, Intolerance, Adverse Event: Allergies: ? Cipro: Drug, Itching, Active Electronic Signatures: Nery Ennis (ELLI) (Signed 21-Feb-2018 09:37) Authored: Profile, Additional Information Last Updated: 21-Feb-2018 09:37 by Nery Ennis (ELLI) PREOP CHECKLIST Observed: 02/21/2018 Status: NELSON Source: [facility] 8:58 AM HOSPITALS REPOSITORY Preop Checklist: Preop Checklist: ? Arrival Date 21-Feb-2018 ? Arrival Time 08:58 ? Procedure Type right breast mag seed nipple sparing mastectomy; sentinel lymph node biopsy; left breast prophylactic nipple sparing mastectomy; bilateral breast stage one recontruction; tissue sales promoter alloderm graft ? NPO Status 21-Feb-2018 00:00 ? ID Band On yes ? Allergy Band yes ? Consent Signed pending ? H&P Complete yes ? Anesthesia Assessment Completed pending ? EKG Performed not ordered ? Chest X-Ray Performed not ordered ? Chlorhexadine Bath Given not applicable ? Soap and water bath with hair shampoo the night before surgery not applicable ? SCD's Applied sent to OR ? NOBLE Hose Applied yes ? Dentures not applicable ? Prosthetics not applicable ? Hearing Aids not applicable ? Valuables Secured sent with family ? Glasses / Contacts not applicable ? Bowel Prep no Cardiovascular Assessment: ? Apical regular Respiratory Assessment: ? Respirations labored unlabored Neurological Assessment: ? Level of Consciousness alert, oriented ? Mobility moves all extremities ? Able to Express Self yes ? Age Appropriate yes ? Emotional Status calm Preop Education: ? Surgical Site Infection Prevention yes ? Pain Scales and Management yes Language / Communication: ? Language / Communication Mauritian Electronic Signatures: Nery Ennis (RN) (Signed 21-Feb-2018 09:01) Authored: Preop Checklist Last Updated: 21-Feb-2018 09:01 by Nery Ennis (RN) ULTRASOUND GUIDED Observed: 02/21/2018 Status: F Source: [facility] PLACEMENT BREAST LOC 8:48 AM HOSPITALS REPOSITORY DEV Patient Name: CASSIE HILL STUDY: ULTRASOUND GUIDED PLACEMENT BREAST LOC DEV; 02/21/2018 8:48 am ACCESSION NUMBER(S): [id number] ORDERING CLINICIAN: LALITHA MATHIS INDICATION: Signs/Symptoms: Magseed to right sentinel lymph node; patient scheduled for right mastectomy 02/21/18. FINDINGS: Prior to the procedure, an audible timeout was done to verify patient identification, site and type of procedure. Dr. Gustafson and and electronic technologist were present. The procedure was explained to the patient including the risks, benefits, and alternatives. Medications were discussed, including any prior use of blood thinning medications by the patient. Patient allergies were reviewed. The risks, including but not limited to infection and bleeding, were reviewed by the performing physician and the patient agreed to undergo the procedure. Preprocedure scanning of the right axilla redemonstrated the lymph node of concern with associated tissue marker. 3 mL of buffered 1% lidocaine was injected subcutaneously and into the deeper tissues using ultrasound guidance. A 7 cm needle containing a Magseed was advanced into the node, under ultrasound guidance. When the needle tip was satisfactorily positioned within the node, the Magseed was deployed. Scanning of the axilla demonstrated the Magseed satisfactorily positioned within the node. A mammogram was deferred. The patient tolerated the procedure without difficulty. IMPRESSION: Status post ultrasound-guided Magseed localization of right axillary node and tissue marker. Electronically signed by: LYUDMILA GUSTAFSON MD OPERATIVE REPORT Observed: 02/21/2018 Status: UNK Source: [facility] 12:00 [place] [address] Patient Name: CASSIE HILL : 1985 Date of Service: 02/21/2018 Patient Location: [id number] Patient Type: O Surgeon: Dayton Mauro DO Report Type: Operative Reports PREOPERATIVE DIAGNOSIS: 1. History of carcinoma of the right breast. 2. Mastectomy defect, bilateral. POSTOPERATIVE DIAGNOSIS: 1. History of carcinoma of the right breast. 2. Mastectomy defect, bilateral. OPERATION/PROCEDURE: 1. Stage I bilateral breast reconstruction with placement of Allergan anatomic textured 300 cc tissue expanders inflated to 360 cc bilateral. 2. Interpositional AlloDerm graft 4 x 8 cm, bilateral. SURGEON: Dayton Mauro DO. CUTTER OPERATOR(S): Cira Cardenas DO, Fellow. ANESTHESIA: General. DESCRIPTION OF OPERATION: The patient was seen preoperatively in the holding area, marked in sitting position. IV antibiotic, given prophylactic. The patient was brought to the operating room, placed in supine position. General anesthesia induced. Sequential stockings were applied. The patient was prepped and draped in sterile manner. Dr. Lalitha Mathis then performed a nipple-sparing mastectomy on the right, and from mammary lateral approach with sentinel node biopsy and inframammary lateral mastectomy on the left. The left breast weight was 253 g and the right breast weighed 251.8 g. Attention was focused to the left side. Hemostasis achieved with cautery. The pectoralis major muscle was elevated, and an interpositional AlloDerm graft 4 x 8 cm was sutured to the inferior border of the pectoralis major muscle and to the inframammary crease. At the back table, 2 Allergan tissue expanders were deflated of air, inflated with 180 cc of saline, and the remaining air was deflated. A 7 mm GERONIMO drain was placed in a separate incision and sutured in place with 3-0 Prolene. The tissue sales promoter was then inserted. Additional sutures were placed on the inferior border of the pectoralis major muscle and to the inframammary crease utilizing a ribbon retractor to protect the implant. The implant was then inflated to 360 cc without any significant tension noted on the skin closure or the muscle flap. Multilayered closure was then performed with 3-0 Monocryl in the deep subcutaneous plane and running subcuticular 4-0 Monocryl. The same procedure was carried out symmetrically identically on the right side with placement of tissue sales promoter. Both tissue sales promoter tabs were sutured to the chest wall with 3-0 Biosyn. The left tab was at the 5 o'clock position and the right tab at the 7 o'clock position. Drains were placed on suction. Skin prep and Steri-Strips were applied followed by a fluffy dressing and surgical bra. The patient subsequently transferred to PACU in satisfactory condition. Dayton Mauro DO EST TT: 02/22/2018 04:11 AM EST DICTATION NUMBER: [id number] SPHERIS JOB NUMBER: [id number] CC: Lalitha Mathis MD [facility] Electronically Signed by Dr: Dayton Mauro 02/22/2018 08:34:32 AM [facility] SURGICAL Observed: 02/21/2018 Status: F Source: [facility] PATHOLOGY DEPARTMENT 12:00 AM HOSPITALS REPOSITORY Name CASSIE HILL Pathologist: MIRIAM MOSER MD, PhD Date of Procedure: 02/21/2018 Date Received: 02/21/2018 Date Reported 02/22/2018 Submitting Physician: LALITHA MATHIS MD Location: [facility] FINAL DIAGNOSIS A. LEFT BREAST NIPPLE CORE: -- SEE NOTE AND SEPARATE SURGICAL PATHOLOGY REPORT. Note: This part was sent directly to [facility] Department of Pathology for further processing and interpretation. Final diagnosis will be issued as a separate report. The original pathology report will be kept on file in the [facility] Department of Pathology; copies will be distributed as appropriate. B. LEFT BREAST-SHORT SUPERIOR, LONG LATERAL, WHITE ANTERIOR: -- SEE NOTE AND SEPARATE SURGICAL PATHOLOGY REPORT. Note: This part was sent directly to [facility] Department of Pathology for further processing and interpretation. Final diagnosis will be issued as a separate report. The original pathology report will be kept on file in the [facility] Department of Pathology; copies will be distributed as appropriate. C. RIGHT SENTINEL LYMPH NODE: -- INTRAOPERATIVE REPORT ONLY. -- SEE NOTE AND SEPARATE SURGICAL PATHOLOGY REPORT. Note: This part was sent directly to [facility] Department of Pathology for further processing and interpretation. Final diagnosis will be issued as a separate report. The original pathology report will be kept on file in the [facility] Department of Pathology; copies will be distributed as appropriate. D. RIGHT SENTINEL LYMPH NODE #2: -- INTRAOPERATIVE REPORT ONLY. -- SEE NOTE AND SEPARATE SURGICAL PATHOLOGY REPORT. Note: This part was sent directly to [facility] Department of Pathology for further processing and interpretation. Final diagnosis will be issued as a separate report. The original pathology report will be kept on file in the [facility] Department of Pathology; copies will be distributed as appropriate. E. RIGHT NIPPLE CORE: -- SEE NOTE AND SEPARATE SURGICAL PATHOLOGY REPORT. Note: This part was sent directly to [facility] Department of Pathology for further processing and interpretation. Final diagnosis will be issued as a separate report. The original pathology report will be kept on file in the [facility] Department of Pathology; copies will be distributed as appropriate. F. RIGHT AXILLARY CONTENTS: -- SEE NOTE AND SEPARATE SURGICAL PATHOLOGY REPORT. Note: This part was sent directly to [facility] Department of Pathology for further processing and interpretation. Final diagnosis will be issued as a separate report. The original pathology report will be kept on file in the [facility] Department of Pathology; copies will be distributed as appropriate. G. RIGHT BREAST SHORT-SUPERIOR; LONG LATERAL, WHITE COREY NIPPLE: -- SEE NOTE AND SEPARATE SURGICAL PATHOLOGY REPORT. Note: This part was sent directly to [facility] Department of Pathology for further processing and interpretation. Final diagnosis will be issued as a separate report. The original pathology report will be kept on file in the [facility] Department of Pathology; copies will be distributed as appropriate. H. RIGHT BREAST-ANTERIOR LATERAL MARGIN-STAPLE COREY NEW MARGIN: -- SEE NOTE AND SEPARATE SURGICAL PATHOLOGY REPORT. Note: This part was sent directly to [facility] Department of Pathology for further processing and interpretation. Final diagnosis will be issued as a separate report. The original pathology report will be kept on file in the [facility] Department of Pathology; copies will be distributed as appropriate. I. MEDIPORT-EXPLANT: -- SEE NOTE AND SEPARATE SURGICAL PATHOLOGY REPORT. Note: This part was sent directly to [facility] Department of Pathology for further processing and interpretation. Final diagnosis will be issued as a separate report. The original pathology report will be kept on file in the [facility] Department of Pathology; copies will be distributed as appropriate. Electronically Signed Out By MIRIAM MOSER MD, PhD/XLI Intraoperative Consultation: C. RIGHT SENTINEL LYMPH NODE: - Positive for metastatic carcinoma. - Biopsy site. XL D. RIGHT SENTINEL LYMPH NODE #2: - Two lymph nodes negative for metastatic carcinoma in planes of section examined. XL Clinical History: Breast cancer A: oob-1053; formalin-1054 B: oob-1117; formalin-1500 E: oob-1143; formalin-1145 F: oob-1227; formalin-1229 G: oob-1227; formalin-1500 H: oob-1241; formalin-1250 Specimens Submitted As: A: LEFT BREAST NIPPLE CORE B: LEFT BREAST-SHORT SUPERIOR, LONG LATERAL, WHITE ANTERIOR C: RIGHT SENTINEL LYMPH NODE D: RIGHT SENTINEL LYMPH NODE #2 E: RIGHT NIPPLE CORE F: RIGHT AXILLARY CONTENTS G: RIGHT BREAST SHORT-SUPERIOR; LONG LATERAL, WHITE COREY NIPPLE H: RIGHT BREAST-ANTERIOR LATERAL MARGIN-STAPLE COREY NEW MARGIN I: MEDIPORT-EXPLANT Gross Description: C: Received fresh for an intra-operative consultation, labeled with the patient's name, number, and C. right sentinel lymph node, is a fragment of yellow-blue soft tissue measuring 3.5 x 2.0 x 1.7 cm. The specimen is dissected, revealing a blue-stained lymph node, 2.5 cm in greatest dimension. The lymph node is bisected showing a biopsy site with biopsy clip. A touch preparation is made. The lymph node is entirely submitted for frozen section into one cassette. The specimen is entirely submitted into two cassettes. XL Summary of cassettes:C1: Frozen section, bisected lymph node C2: Remaining fat D: Received fresh for an intra-operative consultation, labeled with the patient's name, number, and D. right sentinel lymph node 2, is a fragment of yellow-pisano soft tissue measuring 2.0 x 1.5 x 0.9 cm. The specimen is dissected. Two small lymph nodes are identified measuring 0.7 cm and 0.6 cm in greatest dimension. The lymph nodes are submitted in toto for frozen section into one cassette. The specimen is entirely submitted into two cassettes. XL Summary of cassettes:D1: Frozen section, two lymph nodes D2: Remaining fat ritu/02/21/2018 Performed By: #### [facility] #### [facility] [address] [place] [id number] OPERATIVE REPORT Observed: 02/21/2018 Status: UNK Source: [facility] 12:00 [place] [address] Patient Name: CASSIE HILL : 1985 Date of Service: 02/21/2018 Patient Location: [facility] [id number] Patient Type: O Surgeon: Lalitha Mathis MD Report Type: Operative Reports PREOPERATIVE DIAGNOSIS: Right breast cancer. POSTOPERATIVE DIAGNOSIS: Right breast cancer. OPERATION/PROCEDURE: 1. Right nipple sparing mastectomy. 2. Magseed localized sentinel lymph node biopsy. 3. Completion axillary dissection with left prophylactic nipple sparing mastectomy. 4. Port-A-Cath removal. SURGEON: Lalitha Mathis MD CUTTER OPERATOR(S): 1. Sada Hutchison. 2. Dayton Mauro DO ANESTHESIA: General endotracheal. LOCATION: This was done at [facility]. INDICATIONS FOR THIS PROCEDURE: This is a 32-year-old female, who presented with a node positive right-sided breast cancer. She underwent neoadjuvant chemotherapy and presents today for right-sided mastectomy because of her large extent of calcifications and a left prophylactic mastectomy. After the options, risks, and benefits were discussed with the patient, informed consent was obtained. She was first injected with the radioactive particle into the right breast. PROCEDURE: She was then brought to the operating suite. She was given a general anesthetic, and the operative area was prepped and draped in the usual sterile fashion. The left side prophylactic was approached first from an inframammary incision. Dissection was carried down through the skin and subcutaneous tissue and down to the chest wall. The breast was taken off the pectoralis muscle by dissecting medially to the sternal border, laterally to the lad and up into the tail of Ramires. Dissection was continued into the clavicle. At this point, superficial dissection was then carried out in the subcutaneous plane up to the level of the nipple. The nipple was everted, and a core biopsy was taken and sent for permanent analysis. The skin and subcutaneous tissue was gently retracted; and dissection was carried medially, superficially, superiorly, and laterally until all the remaining breast tissue was removed. A white stitch was put on the nipple to dayton the area where the nipple had been on the specimen. This specimen once was removed was oriented with a short stitch superior and a long stitch lateral. This was then weighed for the reconstruction and sent in formalin for permanent analysis. Attention was then turned to the right breast where an incision was made along the inframammary ridge. Due to the laterality of the tumor, the incision was extended laterally so that the lymph nodes could be reached. Dissection was carried down to the chest wall, and the breast was taken off the pectoralis muscle. Dissection was carried medially to the sternal border and superficially all the way up to the level of the clavicle. Superficial dissection was then carried out between the subcutaneous tissue and the breast parenchyma up to the level of the nipple. When the nipple was encountered, the breast tissue was removed from the base of the nipple. A white stay suture was placed on the specimen and a core biopsy was sent separately for permanent analysis. Dissection was then meticulously carried out between subcutaneous plane and the breast parenchyma beyond the nipple areolar complex up into the axillary tail of Ramires all the way up to the level of the clavicle. Once we were finally able to remove this breast tissue, the specimen was removed. It was weighed with a short stitch superior and a long stitch lateral and it was sent in formalin for permanent analysis. The wound was copiously irrigated. It should be noted that the clavipectoral fascia was divided, and a blue lymphatic was coursing to a blue lymph node. A total of 3 small blue and radioactive lymph nodes were identified and removed and sent for frozen section. The lymph node containing the Magseed that had been marked previously and identified intraoperatively with the Sentimag unit was found to be still positive for malignancy. At this point, an axillary dissection was performed removing the axillary tissue inferior to the axillary vein and lateral to the chest wall. These lymph nodes were sent in formalin for permanent analysis. We were able to visualize the median pectoral and the intercostal brachial as well as the thoracodorsal nerve bundles. At this point, the wound was copiously irrigated with saline solution. The Port-A-Cath was approached through the mastectomy wound and a 3-0 Vicryl stay suture was placed in a [id number] around the catheter tract and the catheter was removed, inspected, was found to be intact and sent for gross dissection along with a portion of the capsule. A small piece of subcutaneous tissue was then flapped into the cavity after the capsule was obliterated with electrocautery and sewn into place. The wound was copiously irrigated and checked for hemostasis. The case was then turned over to Dr. Dayton Mauro for his portion of the procedure. For my portion of the procedure, the counts were correct. There were no complications. Estimated blood loss was minimal. I was present for the entirety of the procedure. Questions on this dictation, . Lalitha Mathis MD EST TT: 02/22/2018 05:07 AM EST DICTATION NUMBER: [id number] KRYSTYNA JOB NUMBER: [id number] CC: SHARDA GIRALDO Electronically Signed by Dr: Lalitha Mathis 02/23/2018 09:01:01 AM CONSULTATION Observed: 02/13/2018 Status: F Source: [facility] 4:04 PM [facility] Medical Records Department [address] [place] [id number] Consultation 02/13/18 1520 MR#: [id number] Acct: [id number] Name: CASSIE HILL Rep #: [id number] : 1985 32 From: J Luis Reza DO PCP: Sharda Giraldo PA-C Status: REG RCR Y Location: [facility] Date of Service: 02/13/18 Referring Provider: self Diagnosis: Cassie Hill is a 32-year-old premenopausal female clinical stage IIA-IIIA ([id number] cN1 (f) M0) high-grade invasive ductal carcinoma (ER >95%, KS 38%, Her2 0 IHC) of the right breast upper outer quadrant status post confirmatory biopsy of the breast tumor as well as 1 of the abnormal appearing right axillary lymph nodes, neoadjuvant chemotherapy consisting of ddAC x 4 cycles followed by dd paclitaxel x 1 cycle and weekly paclitaxel for 7 weeks (dose dense switched due to toxicity and weekly stopped 2 weeks early due to infusion reaction). History of Present Illness: Patient initially presented with a palpable right breast mass. 07/04/2017: Patient underwent ultrasound of the right breast to evaluate the palpable mass. The ultrasound demonstrated a solid-appearing mass with likely benign morphology, hypoechoic echotexture, anterior depth at the 10 o'clock position measuring 8 x 9 x 4 mm in size. BI-RADS Category 3, recommended six-month follow-up ultrasound of the right breast. [facility] radiology review demonstrated that at the 10 o'clock position there is an oval hypoechoic mass with irregular margins identified measuring 0.9 x 0.4 x 0.8 cm without significant internal vascularity, this mass corresponds to the area of biopsy-proven malignancy per the referring physician. 07/24/2017: Ultrasound-guided biopsy of the right breast mass was performed. Pathology demonstrated evidence for grade 3 invasive ductal carcinoma (ER >95%, KS 38%, Her2 0 IHC) associated with focal DCIS. 08/01/2017: Mammogram was completed and showed evidence for diffuse suspicious microcalcifications in the upper outer quadrant of the right breast highly suggestive of malignancy. BI-RADS Category 6. [facility] radiology review showed evidence for extensive pleomorphic calcifications in the entire supra para lateral quadrant of the right breast extending posteriorly to the level of the nipple without evidence of any suspicious masses. 08/04/2017: Breast MRI was performed which demonstrated evidence for asymmetric clumped enhancement in the upper outer quadrant of the right breast extending into the right axillary tail, measurement of this area is difficult due to positioning of the breast and the breast coil however the transverse diameter measures at least 5 cm, there is enhancement adjacent to the pectoralis muscle without evidence of invasion and there are no enlarged lymph nodes on the MRI, there is no abnormal enhancement or masses noted in the left breast. BI-RADS Category 6. [facility] MRI review demonstrated an area of non- mass enhancement extending posteriorly along the axillary tail abutting the prep pectoralis muscle extending approximately 5 cm corresponding to the area of extensive pleomorphic calcifications within the entire superolateral quadrant of the right breast, no suspicious internal mammary or axillary lymph nodes are identified on the right. However, this is a limited MRI of the breast as the disc contained incomplete inclusion of postcontrast fat saturation images. 08/17/2017: Digital diagnostic mammography of the left breast and ultrasound of both breasts were completed. There are no suspicious masses or calcifications identified in the left breast on mammography. On ultrasound there is an oval hypoechoic mass with irregular margins again demonstrated at the 10 o'clock position 8 cm from the nipple measuring 0.9 x 0.4 x 1 cm which corresponds to the mass seen on the outside ultrasound and is consistent with the biopsy-proven malignancy. A smaller similar appearing mass is also demonstrated at the 10 o'clock position 8 cm from the nipple measuring 0.5 x 0.3 x 0.5 cm approximately 2 cm from the index lesion. Evaluation of the right axilla demonstrates at least 2 morphologically abnormal lymph nodes each with 0.3 cm of focal cortical thickening, there are 2 other lymph nodes demonstrated which are morphologically normal. Ultrasound of the left breast demonstrates no sonographic abnormalities to correspond with the questionable finding on MRI. 08/17/2017: Ultrasound biopsy of right axillary lymph node was performed. Pathology demonstrated evidence for metastatic carcinoma (ER >95%, KS 80%, Her2 1+ IHC) 08/28/2017: Port was placed for chemotherapy. 08/30/2017: CT chest abdomen and pelvis with contrast was performed which demonstrated evidence for a punctate density in the lateral right breast which may be a tissue marker, prominent right axillary lymph nodes with some stranding in the right axilla that may relate to lymph node biopsy, and no evidence for metastatic disease. 08/30/2017: Bone scan was performed which showed no evidence of osseous metastatic disease. 11/13/2017: Digital diagnostic mammogram of the right breast was performed within the posterior depth of the right upper outer quadrant there is a ribbon biopsy clip with fine pleomorphic calcifications in a segmental distribution extending posteriorly from the ribbon biopsy clip to the junction of the anterior to middle third of the breast, the extent of calcifications is at least 6 cm in the craniocaudal dimension and 7.5 cm in the anterior posterior dimension. The axillary lymph node biopsy clip is not within the [id number]. Ultrasound of the right breast shows no evidence of the previous identified 2 masses within the breast, the ribbon biopsy clip is not demonstrated by ultrasound. Sonographic evaluation of the right axilla demonstrates multiple normal-appearing lymph nodes with the biopsy clip noted directly adjacent to the biopsied metastatic lymph node in the abnormal cortical thickening of the biopsied axillary lymph node has resolved in the interim. 11/13/2017: Bilateral breast MRI with contrast was performed which demonstrated focal signal void within the upper outer quadrant of the right breast in the axilla correlating with previously placed biopsy clips, no suspicious mass or enhancement is identified, no axillary or internal mammary lymphadenopathy is appreciated, there are no suspicious masses or evidence of enhancement identified in the left breast and no axillary or internal mammary lymphadenopathy on the left. 09/05/2017 - 12/26/2017: Patient was treated with dose dense Adriamycin/Cytoxan 4 cycles followed by a planned 4 cycles of dose dense paclitaxel. The first treatment of paclitaxel was complicated by severe pain requiring hospitalization and treatment was suspended the resumed with weekly paclitaxel for 9 additional weeks planned. However after the seventh weekly paclitaxel she had severe infusion reaction and treatment was discontinued. Radiation Treatment History: Denies ever having any previous radiation therapy. Denies having a pacemaker or previous diagnosis of collagen vascular disease. Interval History: Patient presents for initial consultation. She reports that in May she developed a palpable lateral right breast lesion and reports no other symptoms at this time including nipple discharge, skin erythema or color change, breast distortion or nipple inversion, or pain. She also noted that she did not feel any other abnormalities in the breast or underarm. She completed neoadjuvant chemotherapy about 6 weeks ago, she had a fairly difficult time and had to be hospitalized with severe pain and also had an infusion reaction to paclitaxel so the chemotherapy was stopped early. She reports that she has recovered from chemotherapy side effects at this time. She denies pain, fatigue, appetite change or unexpected weight loss, or any other problems at this time. She believes that she has had a decent response to neoadjuvant chemotherapy and is having a hard time palpating any areas of abnormality in the breast or axilla. She reports having genetic testing and believes that this was negative but is not entirely sure, we will have these reports faxed. 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 Date of last PAP smear: 10/30/15 Hx Control Yes Hx Hormone Therapy No Obstetrical History Number of pregnancies: 2 Number of children: 2 Have you ever breastfed in the Yes past? Breast Health Monthly breast self-exams Yes performed? Do you have regular clinical Yes breast examinations? Date of last mammogram: 11/30/17 Have you ever had an abnormal Yes (mammogram completed for palpable abnormality, no previous screening) mammogram? Home Medications Medication Instructions Recorded Multivitamin [Daily Multiple 1 each PO DAILY 08/28/15 Allergy/AdvReac Type Severity Reaction Status Date / Time morphine AdvReac Mild Rash Verified 11/20/15 17:59 Health Maintenance Do you regularly see your Yes primary care physician? Have you ever had a No colonoscopy? I have reviewed the medical, surgical, and other pertinent history in details and have updated medication and allergy information in the electronic medical record. Review of Systems: A 12-point review of systems was completed and was negative except for what is noted in the HPI/Interval History and by the nurse. Height/Weight/BMI: Height: 5 ft 9 in Weight: 78.018 kg BMI: 25.4 Vital Signs Temperature 98.2 F 02/13/18 14:43 Temperature Source Oral 02/13/18 14:43 Physical Exam: ECO [place]AR[place] SCORE: 100% CONSTITUTIONAL: Well-developed, well-nourished, and in no apparent distress. NECK: Supple,with no thyromegaly, and non-tender. Trachea midline. No cervical or supraclavicular adenopathy noted. CARDIAC: Regular rate and rhythm. Normal S1, S2. No murmurs, rubs, or gallops appreciated. PULMONARY/CHEST: Lungs are clear to auscultation and percussion bilaterally. No wheezes, rhonchi, or crackles noted. No increased work of breathing. ABDOMINAL: Abdomen soft, non-tender, non-distended. No hepatomegaly. Normoactive bowel sounds in all four quadrants. No guarding, rebound. BACK: Straight and aligned. No CVA tenderness. Axial skeleton non-tender to percussion. BREAST: Bilateral breasts are examined in the seated and supine position. Breasts appear symmetrical. There is evidence of a small scar in the upper outer quadrant of the right breast that relates to the previous biopsy. There is also a small scar from the axillary biopsy. There are no appreciable abnormalities noted deep to these abnormalities or within the breast or axilla. There are no palpable masses or lesions noted in the left axilla or breast. EXTREMITIES: Full range of motion in all four extremities, with normal strength equally and symmetrically. No evidence of edema. No clubbing. NEUROLOGICAL EXAM: Alert and oriented x 3. Cranial nerves II through XII are grossly intact. Imaging: As per HPI I personally reviewed the outside imaging including breast MRIs, CT chest, CT abdomen/pelvis, bone scan, and mammograms. Laboratory Data: No recent labs to review. Assessment: Cassie Hill is a 32-year-old premenopausal female clinical stage IIA-IIIA ([id number] cN1 (f) M0) high-grade invasive ductal carcinoma (ER >95%, KS 38%, Her2 0 IHC) of the right breast upper outer quadrant status post confirmatory biopsy of the breast tumor as well as 1 of the abnormal appearing right axillary lymph nodes, neoadjuvant chemotherapy consisting of ddAC x 4 cycles followed by dd paclitaxel x 1 cycle and weekly paclitaxel for 7 weeks (dose dense switched due to toxicity and weekly stopped 2 weeks early due to infusion reaction). I had a detailed discussion with the patient regarding management for stage IIA - IIIA invasive ductal cancer. I explained that the stage is at least IIA given the biopsied less than 1 cm breast lesion and abnormal appearing lymph node that was also biopsied and proven to contain disease, but that there was abnormal enhancement and pleomorphic calcifications extending 5-6 cm which likely represents a larger primary tumor that may be diffuse and that there were 2 abnormal appearing lymph nodes on axillary ultrasound with only one being biopsied. I highlighted for her other clinical risk factors that portend higher risks of recurrence including grade 3 histology, young age/premenopausal status, suboptimal neoadjuvant chemotherapy delivery resulted from toxicity, and potentially a large primary tumor with multiple positive lymph nodes. I explained that traditionally recommendations for adjuvant radiation therapy following mastectomy are based on complete pathologic information and that relying on clinical staging can create some difficulties with assessing stage accurately. Therefore, current recommendations for adjuvant radiation therapy consider the post neoadjuvant chemo (pathologic) extent of disease but use pre-chemotherapy clinical staging as the strongest guide for adjuvant radiation therapy. I explained to her that if she had undergone a mastectomy and she had multiple positive lymph nodes or tumor greater than equal to 5 cm but I would recommend adjuvant radiation therapy to the chest wall and regional lymph nodes as this has been proven to improve local regional control, disease-free survival, and potentially overall survival. I discussed with her that treatment decisions based on pathologic response after neoadjuvant chemotherapy is a subject of a current trial (NSABP B-51/RTOG-1308) which includes patients who have node positive disease prior to chemotherapy and then become pathologically node-negative and if they undergo mastectomy then the randomized to having postmastectomy radiation therapy including the regional lymph nodes versus no radiation therapy. Until data from this trial is analyzed then I would recommend adjuvant radiation therapy to all these patients as determined by their pre-chemo clinical staging. She does not have a complete response within her lymph nodes then she is at a much higher risk of recurrence and it would also be recommended that she receive postmastectomy radiation therapy in that setting. She is planning to have bilateral mastectomy and reconstruction on 02/21/2018 and I have asked that she return for further discussion about 3 weeks after surgery to assess healing and to review her pathology and treatment recommendations. She believes that she is having a delayed exchange of breast implant 6 months after radiation therapy, I discussed with her that I would recommend this to reduce risk of capsular contracture and other difficulties after radiation therapy to a breast implant. Following her discussion the patient demonstrated good understanding of all the information discussed and my recommendations and all questions and concerns were addressed. She was instructed to call if any further questions or concerns should arise prior to her next visit. Thank you for allowing me to participate in the management and care of your patient. If I may answer any questions in the interim, please do not hesitate to contact me at any time. J Luis Reza DO, MS Ehs Engineer, Department of Radiation Oncology [facility] 02/13/18 [id number] <Electronically signed by J Luis Reza DO> Date J Luis Reza DO Cosigner Signature (if applicable): Date CC: KATIUSKA Giraldo; Brandon Colon MD Signed CHEST 2 VIEWS Observed: 02/06/2018 Status: F Source: [facility] 1:38 PM [address], [place] [address] Patient: CASSIE HLIL Phone#: : [phone] Age: 32 Gender: F Pt. Type: Out Account: [id number] Location: [facility] Ordering: [facility] Exam Date: 02/06/2018/12:28 Family Phys: Charge Code: 460687 Physician: Edwards Order #: [id number] DLP Dose#: PROCEDURE: X-RAY CHEST 2 VIEWS COMPARISON: [facility], XR, CHEST PA/LAT, 12/28/2017, 14:23. INDICATIONS: Preoperative testing FINDINGS: LUNGS: Normal. No significant pulmonary parenchymal abnormalities. VASCULATURE: Normal. Unremarkable pulmonary vasculature. CARDIAC: Normal. No cardiac silhouette abnormality or cardiomegaly. MEDIASTINUM: Normal. No visible mass or adenopathy. PLEURA: Normal. No effusion or pleural thickening. BONES: Hurley rods are present at the mid to lower thoracic spine. OTHER: Right sided port catheter is present. CONCLUSION: No acute disease. No significant change has occurred. Dictated by: Adrianne Menjivar MD on 02/06/2018 at 14:07 Approved by: Adrianne Menjivar MD on 02/06/2018 at 14:07 PROTHROMBIN TIME AND Collected: 02/06/2018 Status: F Source: [facility] INR 12:54 PM [facility] REPOSITORY TYPE CODE TESTS RESULT OUT OF REFERENCE UNITS RANGE LAB PROTHROMBIN TIME AND INR(LOINC) PROTHROMBIN TIME AND INR Result Comment: PROTHROMBIN TIME AND INR LAB PT-COUMADIN(LOINC) sec PT-COUMADIN 12.9 LAB INR(LOINC) 0.8 - 1.2 INR 1.1 Result Comment: THE HEMOSIL THROMBOPLASTIN REAGENT USED IN THE PROTHROMBIN TIME TEST INTERACTS WITH THE DRUG CUBICIN (DAPTOMYCIN) AND WILL RESULT IN FALSELY ELEVATED PT / INR RESULTS INR INTERPRETATION INR INDICATION PREVENTION AND TREATMENT OF THROMBOEMBOLISM ASSOCIATED WITH: 2.0 - 3.0 ATRIAL FIBRILLATION, BIOPROSTHETIC HEART VALVES, PULMONARY EMBOLISM, VENOUS THROMBOSIS, SYSTEMIC EMBOLISM POST MYOCARDIAL INFARCTION 2.5 - 3.5 MECHANICAL HEART VALVES Performed By: #### [id number] #### [facility],[address] [place] [id number] CBC Collected: 02/06/2018 Status: F Source: [facility] 12:54 PM [facility] REPOSITORY TYPE CODE TESTS RESULT OUT OF RANGE REFERENCE UNITS LAB CBC(LOINC) CBC Result Comment: CBC-COMPLETE BLOOD COUNT LAB WBC(LOINC) 4.5 - 10.8 x 10EE3/UL WBC Low 4.3 LAB RBC(LOINC) 4.10 - x 10EE6/UL 5.30 RBC 4.90 LAB HEMOGLOBIN(LOINC) 12.0 - g/dl 16.0 HEMOGLOBIN 12.1 LAB HEMATOCRIT(LOINC) 34.0 - % 46.0 HEMATOCRIT 37.0 LAB MCV(LOINC) 80 - 99 fl MCV Low 76 LAB MCH(LOINC) 27 - 33 pg MCH Low 25 LAB MCHC(LOINC) 32 - 36 X10 3 MCHC 33 LAB RDW/CV(LOINC) 12.0 - % 15.6 RDW/CV 14.9 LAB PLATELET(LOINC) 150 - 450 x10EE3/UL PLATELET 226 LAB MPV(LOINC) 6.6 - 10.5 fl MPV 8.9 Result Comment: AUTOMATED DIFFERENTIAL LAB NEUT %(LOINC) 46.0 - 76.0 % NEUT % 68.4 LAB LYMPH %(LOINC) 20.0 - 45.0 % LYMPH % 20.5 LAB MONOS %(LOINC) 0.0 - 10.0 % MONOS % 9.2 LAB EO %(LOINC) 0.0 - 7.0 % EO % 1.1 LAB BASO %(LOINC) 0.0 - 2.0 % BASO % 0.8 LAB Lymph #(LOINC) 0.80 - 2.80 x10EE3/U L Lymph # 0.90 LAB Neut #(LOINC) 1.50 - 7.10 x10EE3/U L Neut # 3.00 LAB Shannon #(LOINC) 0.20 - 1.00 x10EE3/U L Shannon # 0.40 LAB EO #(LOINC) 0.00 - 0.50 x10EE3/U L EO # 0.00 LAB Baso #(LOINC) 0.00 - 0.10 x10EE3/U L Baso # 0.00 LAB MANUAL DIFF(LOINC) MANUAL DIFF N/A LAB MORPHOLOGY(LOINC ) MORPHOLOGY N/A Result Comment: {CD] Performed By: #### [id number] #### [facility],[address] [place] [address] CMP WITH EGFR Collected: 02/06/2018 Status: F Source: [facility] 12:54 PM [facility] REPOSITORY TYPE CODE TESTS RESULT OUT OF RANGE REFERENCE UNITS LAB CMP with eGFR(LOINC) CMP with eGFR Result Comment: COMPREHENSIVE METABOLIC PANEL LAB SODIUM(LOINC) 136 - 145 mmol/l SODIUM Low 133 LAB POTASSIUM(LOINC) 3.5 - 5.1 mmol/L POTASSIUM 3.6 LAB CHLORIDE(LOINC) 98 - 107 mmol/L CHLORIDE 103 LAB CO2(LOINC) 21.0 - mmol/L 31.0 CO2 25.7 LAB GLUCOSE(LOINC) 74 - 106 mg/dl GLUCOSE 83 LAB BUN(LOINC) 6 - 20 mg/dl BUN 13 LAB CREATININE(LOINC) 0.6 - 1.2 mg/dl CREATININE 0.8 LAB AST/SGOT(LOINC) 13 - 39 U/L AST/SGOT 22 LAB ALK PHOS(LOINC) 38 - 126 U/L ALK PHOS 70 LAB CALCIUM(LOINC) 8.6 - mg/dl 10.2 CALCIUM 9.2 LAB TOTAL PROTEIN(LOINC) 6.4 - 8.3 g/dl TOTAL PROTEIN 7.3 LAB ALBUMIN(LOINC) 3.4 - 4.8 g/dL ALBUMIN 4.2 LAB GLOBULIN(LOINC) 1.5 - 3.8 G/DL GLOBULIN 3.1 LAB A/G RATIO(LOINC) 0.9 - 1.6 A/G RATIO 1.4 LAB TOTAL BILI(LOINC) 0.0 - 1.5 mg/dl TOTAL BILI 0.5 LAB B/C RATIO(LOINC) 0 - 30 ratio B/C RATIO 16 LAB ALT/SGPT(LOINC) 8 - 35 U/L ALT/SGPT 12 LAB ANION GAP(LOINC) 10 - 20 mmol/L ANION Low GAP 8 LAB AGE(LOINC) years AGE 32 LAB eGFR(LOINC) 60 - 999 ML/MINUTE eGFR >60 LAB eGFR(AA)(LOINC) 60 - 999 ML/MINUTE eGFR(AA) >60 Result Comment: ACCORDING TO THE NATIONAL KIDNEY DISEASE EDUCATION PROGRAM(NKDE), A NORMAL eGFR IS A VALUE GREATER THAN OR EQUAL TO 60 ML/MIN/1.73 SQ METERS. CHRONIC KIDNEY DISEASE: <60mL/MIN/1.73 SQ METERS KIDNEY FAILURE: <15mL/MIN/1.73 SQ METERS THIS TEST SHOULD ONLY BE USED FOR PATIENTS 18 YEARS OF AGE AND OLDER. Performed By: #### [id number] #### [facility],[address] [place] [address] CLINIC NOTE - HEME Observed: 02/05/2018 Status: COMPLETED Source: [facility] ONC-FOLLOW UP VISIT 7:28 AM [facility]PITALS REPOSITORY Patient Visit Information: Visit Type: Follow Up Visit Cancer History: Breast AJCC Edition: 7th (AJCC), Diagnosis Date: Jul 2017, IIA, T1b N1 M0 Treatment History: 1. Right breast mass palpated by patient. Ultrasound abnormal. Right breast biopsy 07/24/17 showed invasive ductal carcinoma grade 3 with focal DCIS, ER/KS positive and HER2 negative. MRI showed extensive non-mass enhancement right breast UOQ nipple to pectoralis 2. Further diagnostic U/S [facility] 08/17/17 showed abnomal right axillary LNs. Core biopsy 08/17/17 revealed metastatic carcinoma in LN. Tumor was ER >95% KS 80% HER2 negative 1+. Clinical Stage T1N1M0 (no evidence of systemic disease on CT scan and bone scan on 08/30/17) 3. Neoadjuvant chemotherapy with adriamycin/cytoxan X 4 followed by paclitaxel X 4 given dose dense with Neulasta support started 09/05/17. First Paclitaxel treatment 10/31/17 complicated by severe pain requiring hospitalization. Treatment suspended then resumed with weekly Paclitaxel for 9 additional weeks planned. She had a severe infusion reaction with the 7th weekly Paclitaxel (of 9 planned) and treatment was discontinued 12/26/17. 4. Surgery, radiation and hormonal treatment to follow. Mastectomy required for extensive calcifications right breast. 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 Fingers recovered. Hair, eyebrows and eyelashes recovering Energy better Pain resolved. Completing normal activities Plans bilateral mastectomy with TE reconstruction 02/21/18 She understands that the plan for hormonal treatment will follow and may, in part, be based on response to treatment. Review of Systems: Review of Systems: She denies breathing or breast complaints. No diarrhea, constipation or BRIGHT. No SOB. Rest per HPI ? System Review All other systems have been reviewed and are negative for complaint. ? Musculoskeletal POSITIVE: Pain Comments chronic with scoliosis Allergies and Intolerances: Allergies: Cipro: Drug, Itching, Active Outpatient Medication Profile: * Patient Currently Takes Medications as of 19-Dec-2017 10:59 documented in Structured Notes oxyCODONE 5 mg oral tablet: 1 tab(s) orally every 3 hours, As Needed , Start Date: 22-Nov-2017 dexamethasone 4 mg oral tablet: 1 tab(s) orally 2 times a day for 4 days if needed after chemotherapy weekly, Start Date: 22-Nov-2017 gabapentin 300 mg oral capsule: 1 cap(s) orally 3 times a day , Start Date: 22-Nov-2017 prochlorperazine 10 mg oral tablet: 1 tab(s) orally every 8 hours, As Needed -for nausea , Start Date: 22-Sep-2017 omeprazole 20 mg oral delayed release capsule: 1 cap(s) orally once a day , Start Date: 07-Sep-2017 ondansetron 8 mg oral tablet: 1 tab(s) orally 3 times a day, As Needed for nausea once greater than 72 hours out from chemotherapy treatment, Start Date: 07-Sep-2017 lidocaine-prilocaine 2.5%-2.5% topical cream: Apply topically to affected area once a day 30-45 minutes prior to mediport access., Start Date: 22-Aug-2017 digestive enzymes/hyoscyamine/phenyltoloxamine oral capsule: 1 cap(s) orally once a day Probiotic Formula oral capsule: 2 cap(s) orally once a day Decadron: before chemo PACLitaxel: every week for 9 weeks Benadryl: before chemo famotidine: before chemo Medical History: Scoliosis: Status: Active Breast cancer, right: Status: Active Family History: No Family History items are recorded in the problem list. 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 Premenopausal with LMP 07/21/2017 Childrn are 8 (son) and 3 (daughter). She is considering having more children. Last year she had surgery laparoscopic to open with removal of one ovary and a cyst was supposed to be removed from uterus. Dermoid cyst was found at surgery. Hemorrhagic cyst on the remaining ovary. Uterine polyp removed with the surgery. x 2 Family history: Patient reports a family history of breast cancer affecting her maternal half-aunt (shared father) at 51. Denies colon, prostate or ovarian cancer in family. Mother with non melanoma skin cancer PMH chronic anemia and alpha thalassemia Iron infusions monthly Menorrhagia-- 9 days menses Did not respond to oral iron---Hgb became quite low Hgb lately has been normal Worst in , recently 10 (was 2) Hurley Rods for scoliosis surgery at 10 (1) Performance: ECOG Performance Status: 0 Fully Active Vitals and Measurements: Last 3 Weights & Heights: Date: Weight/Scale Type: Height: 26-Dec-2017 09:50 76.7 kg / standing scale 174.8 cm 19-Dec-2017 10:05 76.8 kg / standing scale 174.8 cm 12-Dec-2017 09:47 75.7 kg / standing scale 174.8 cm Physical Exam: Constitutional: Well appearing woman in no acute distress. Eyes: PERRL, EOMI, clear sclera Psychological: Appropriate mood and behavior Skin: Warm and dry, no lesions, no rashes. Radiology Result: ? Results Impression: No MRI evidence of malignancy in either breast. Biopsy clips noted within the right breast and right axilla. BI-RADS CATEGORY: Category: 6 - Known Biopsy-Proven Malignancy. Recommendation: Immediate Follow-up. MRI Breast Bilateral with Contrast full protocol [Nov 14 2017 8:48AM] Impression: Right breast cancer with associated segmental distribution of pleomorphic calcifications, upper outer quadrant. Interval resolution of the 2 masses at 10 o'clock 8 cm from the nipple, consistent with marked chemotherapy response. Metastatic right axillary lymph node demonstrates interval resolution of abnormal cortical thickening. The imaging findings were discussed with Dr. Mathis in person in the radiology reading room today. BI-RADS CATEGORY: Category: 6 - Known Biopsy-Proven Malignancy. Recommendation: Immediate Follow-up. Dr. Mathis is following this patient. Patient letter sent [facility] Mamm Ultrasound of Breast Diagnostic [Nov 13 2017 3:09PM] Assessment and Plan: Assessment and Plan: Assessment: Stage T1N1M0 right breast cancer ER/KS positive HER2 negative; LN positive on biopsy. Metastatic w/u with bone scan and CT scan was completed and was negative. We discussed curative intent of chemotherapy given preoperatively. Adriamycin/cytoxan X 4 followed by paclitaxel X 4 given dose dense with Neulasta support as preoperative chemotherapy was recommended. Patient watched the chemotherapy class video because she was unable to make the class. Consent for chemotherapy signed, Mediport placed 08/28/17, Oncoechocardiogram complete. Chemotherapy initiated 09/05/17. She has chronic Fe deficiency and resumed iron infusions with her chemotherapy treatment with C2 Adriamycin/Cytoxan. Diagnosis of alpha thalassemia confirmed by genotype. Declined fertility preservation. 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 Surgeon: Dr. Lalitha Mathis. Radiation appointment completed but she will receive radiation closer to home. Completed Adriamycin/Cytoxan chemotherapy on 10/17. Had C1 Paclitaxel complicated by severe pain requiring hospitalization and high doses of oxycodone. After an episode of syncope, medication was changed to oxycodone 5 mg, gabapentin 300 mg three times a day, dexamethasone 4 mg twice a day and ibuprofen. All of these were tapered and weekly Paclitaxel X 9 was initiated. MRI, mammogram and u/s show marked improvement. She needs mastectomy right due to extent of disease with >7cm calcifications. LN was barely palpable last exam (no bulky adenopathy) so she may be a candidate for [id number] but will not pursue this with radiation being planned outside our system. With the infusion reaction during week 7 of 9 planned Paclitaxel treatments, Paclitaxel was discontinued. Risk outweighed benefit of continued treatment. She has recovered well now from chemotherapy and is ready for surgery. Preop testing to be done close to home. Cassie understands that the plan for hormonal treatment will follow and may, in part, be based on response to treatment. At least 30 minutes of direct consultation was spent with the patient today reviewing her cancer care plan, educating and answering question regarding ongoing follow up, greater than 50% in counseling and coordination of care. Note Recipients: Lalitha Mathis MD - [id number] Sharda Giraldo [facility] - [phone] Select Yes when ready to send to Provider(s) Listed Above: Note sent to providers named above Electronic Signatures: Nuzhat Hines) (Signed 05-Feb-2018 17:32) Authored: Patient Visit Information, Cancer History, History of Present Illness, Review of Systems, Allergies and Outpatient Medication Profile, Problem List, Social History, Performance Assessments, Vitals and Measurements, Physical Exam, Results, Assessment and Plan, To Send Document via Auto Fax Last Updated: 05-Feb-2018 17:32 by Nuzhat Hines) References: 1. Data Referenced From Clinic Note - Heme Onc-Follow Up Visit 12/31/2017 07:50 AM HISTORY PHYSICAL Observed: 01/25/2018 Status: COMPLETED Source: [facility] 3:15 PM [facility] REPOSITORY HNO ID: [id number] Author: Nery Britton Service: (none) Author Type: (none) Type: HANDP Filed: 01/25/2018 4:39 PM Note Text: [facility] DO KAILEE BONILLA TODAY'S DATE: 01/25/2018 PRIMARY CARE PHYSICIAN: TANIA Nuno CHIEF COMPLAINT: Patient presents with: Consult HISTORY OF PRESENT ILLNESS: Ms. Hill is a 32 year old female who presents today In consultation for stage I breast reconstruction bilateral following bilateral mastectomy cancer right side . PAST MEDICAL/SURGICAL HISTORY: PAST MEDICAL HISTORY Diagnosis Date - Alpha thalassemia (HCC) - Anemia - Pleurisy - Scoliosis - Uterine cyst - Uterine fibroid - Vasovagal syncope PAST SURGICAL HISTORY Procedure Laterality Date - DELIVERY ONLY 04/15/2009 , low transverse - DELIVERY ONLY 12/24/2013 , low transverse - L'SCOPE DX W/WO BRUSHINGS/WASHINGS 2010 Laparoscopy - PAST SURGICAL HISTORY OF 1994 Scoliosis surgery SOCIAL HISTORY: Social History Substance Use Topics - Smoking status: Never Smoker - Smokeless tobacco: Never Used - Alcohol use No FAMILY HISTORY Problem Relation Age of Onset - Hypertension Mother - Fibromyalgia [Other] [OTHER] Mother - Anemia [Other] [OTHER] Mother - Hypertension Father - Diabetes Father - Sarcoidosis [Other] [OTHER] Father - Ovarian cancer Maternal Grandmother ALLERGIES: ALLERGIES Allergen Reactions - Morphine Rash MEDICATIONS: iron polysaccharide complex (FERREX-150) 150 mg iron capsule Take 1 capsule by mouth twice daily. OXcarbazepine (TRILEPTAL) 150 mg tablet Take 150 mg by mouth once daily. Lysine 500 mg cap Take by mouth twice daily. multivitamin tablet Take 1 tablet by mouth once daily. REVIEW OF SYSTEMS: PAIN ASSESSMENT: Negative for pain, history of chronic pain, or current treatment for a chronic pain condition. 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 bleeding, abnormal vaginal discharge MUSCULOSKELETAL: Negative for joint pain or swelling, back pain or muscle pain SKIN: Negative for lesions, rash, and itching PSYCH: Negative for sleep disturbance, mood disorder and recent psychosocial stressors HEMATOLOGY/LYMPHOLOGY: Negative for prolonged bleeding, bruising easily or swollen nodes ENDOCRINE: Negative for cold or heat intolerance, polyuria, polydipsia and goiter NEURO: No history of headaches, syncope, paralysis, seizures or tremors PHYSICAL EXAMINATION: Ht 5' 9 (1.75m) General appearance: Well appearing, alert, in no acute distress, well-hydrated, well nourished. Skin: Skin color, texture, turgor normal, no suspicious rashes or lesions Head: Normocephalic, no masses, lesions, tenderness or abnormalities Eyes: Anicteric sclera. Pupils are equally round and reactive to light. Extraocular movements are intact. Ears: External ears normal, canals clear, TM's normal Nose/Sinuses: Nares normal, septum midline, mucosa normal, no drainage or sinus tenderness Oropharynx: Lips, mucosa, and tongue normal, teeth and gums normal, oropharynx normal Neck: Supple, no adenopathy; thyroid symmetric, normal size, no bruits Back: Normal exam Lungs: Lungs clear to auscultation. No wheezing, rhonchi, rales Heart: RRR without murmur, gallop, or rubs. No ectopy Abdomen: Normal abdominal exam, Abdomen soft, non-tender. Bowel sounds normal. No masses, organomegaly Extremities: No deformities, edema, skin discoloration, clubbing or cyanosis. Good capillary refill. Musculoskeletal: No joint swelling, deformity, or tenderness Peripheral pulses: Normal Neuro: Gait normal. Reflexes normal and symmetric. Sensation grossly intact. ASSESSMENT AND PLAN: Dr. Mauro and I discussed risks complications alternatives and benefits for stage I reast reconstruction. Insurance letter today photos. Nery Rangel assessed ROS and Physical Exam with the patient and I agree with her findings Dayton Mauro D.O. PROGRESS Observed: 01/25/2018 Status: COMPLETED Source: [facility] 3:15 PM [facility] [place] REPOSITORY HNO ID: [id number] Author: Dayton Mauro Service: (none) Author Type: Physician Type: Progress Notes Filed: 01/25/2018 4:39 PM Note Text: [facility] DO KAILEE BONILLA Name: Cassie Hill I see her today for carcinoma the right breast. She is referred by Dr. Mathis. She is going to undergo to me with sentinel node biopsy on the right and a prophylactic mastectomy on the left. We discussed reconstruction with tissue expanders and interpositional AlloDerm grafts. We will proceed a mutually convenient time. Today I have discussed with the patient, in the presence of my nurse, breast reconstruction. We discussed the questions that arise in a patient undergoing breast reconstruction. Firstly, should I have breast reconstruction at all? And this is a very personal decision for the patient. Only she will know whether or not she wishes to have reconstruction. Should she decide to have it, should she have it done immediately at the time of mastectomy or delayed? I have today discussed with her the options of reconstruction by synthetic and by autogenous techniques. Synthetic technique means the insertion of a tissue sales promoter at the time of surgery. Gradually over 2 to 6 months, the sales promoter is expanded by injecting saline solution into the implant and stretching the skin. The second stage procedure will be done as an outpatient when the sales promoter is removed and the definitive implant is inserted. The third stage involves reconstructing the nipple/areola complex by using tissue on the newly reconstructed breast mound and tattooing the areola to match the opposite nipple and areola. Like any operative procedure, the operation has potential risks and possible complications. Risks include bleeding, collection of blood known as a hematoma that may require evacuation. Skin loss may occur due to pressure over the overlying skin, which has been compromised by the mastectomy procedure. This may lead to exposure of the implant or sales promoter and infection requiring removal of the sales promoter or implant. Late risks include capsule contracture, with distortion and disfigurement of the breast especially in patients requiring radiation treatment. The drawback with synthetic implant is that the implant doesn't age and asymmetry will develop between the normal side and the reconstructed side. This is a pure physiological effect as the normal breast is responding to age and gravity where the reconstructed breast by implant does not respond to such factors. This is a dynamic situation. The sales promoter may make mammography more difficult and obscure the detection of breast cancer. The advantage of the implant procedure however is that it is much quicker, the convalescence time is much quicker, being anything from three days to one week, and certainly the hospitalization is significantly less than by autogenous technique. The patient was invited to return or call with any further questions before making a decision for surgery. IT HAS BEEN EXPLAINED IN DETAIL NOT TO TAKE ASPIRIN, ASPIRIN-CONTAINING PRODUCTS AND VITAMIN E FOR TWO TO THREE WEEKS PRIOR TO ELECTIVE SURGERY THESE INCREASE THE RISK OF BLEEDING AND HEMATOMA FORMATION. THE PATIENT WAS INFORMED THAT SMOKERS HAVE A GREATER RISK OF SKIN LOSS, SCARRING AND WOUND HEALING COMPLICATIONS. THE PATIENT WAS GIVEN NO GUARANTEE OF RESULTS. If we have to return to surgery to correct any problems, I have discussed in detail with the patient that if this return to the O.R. is not covered by insurance, I do not charge the patient, however, there will be a charge for the O.R. and anesthesia, over which I have no control. MAF/nn (Dictated, but not read.) Any concerns or questions prior to next appointment, patient is to call office or return sooner. Dayton Mauro, DO January 25, 2018 This note was generated with voice recognition software and may contain errors, including spelling, grammar, syntax and misrecognition of what was dictated, that are not fully corrected. EMERGENCY DEPARTMENT Observed: 01/02/2018 Status: F Source: [facility] SUMMARY 7:37 AM [facility] EMERGENCY DEPARTMENT SUMMARY NAME NUMBER SEX AGE ADMIT DISC TYPE MED.RECORD# SERGIO Figueroa [id number] F 32 12/28/17 12/28/17 E.RAbelardo [id number] [facility] DATE OF :1985 PHYSICIAN NO.:[id number] PHYSICIAN NAME:NEGRITA Sandoval D.O. PHYSICIAN:MAGALIS GIRALDO HISTORY OF PRESENT ILLNESS: The patient came in. She has been having some chest pain. It started 3 weeks ago. She is on Taxol for chemotherapy and thinks this may have something to do with it. She had some heaviness and radiation to her back. She had some mild shortness of breath and she saw her doctor, and they told her to come in to make sure this was not a blood clot. PAST MEDICAL HISTORY: She has a history of breast cancer with spread to the lymph node [id number] and anemia. PAST SURGICAL HISTORY: She had spine surgery for scoliosis, oophorectomy, and liver which is complex. REVIEW OF SYSTEMS: Ten systems reviewed and negative except as mentioned above. PHYSICAL EXAMINATION: The patient is afebrile. Blood pressure 129/85, pulse 71, respirations 16, and pulse ox 100% on room air. Head is normocephalic and atraumatic. Eyes: Pupils are equal, round, and reactive to light. Extraocular muscles intact. Nares are patent. Throat has adequate oral moisture. Uvula is midline. Neck is supple without petechiae or rash. Heart without murmur. S1 equals S2. No S3 or S4 appreciated. Lungs are clear to auscultation bilaterally. No rales, rhonchi, or retractions. Abdomen is soft, nontender, and nondistended. Skin is warm and dry. She does have a port in place. DIAGNOSTIC DATA: The patient had an EKG, which showed a rate of 70, normal axis. No ST elevation of depression. It was compared to an EKG performed on March 20, 2016. D-dimer was 162. Chemistries were unremarkable. EMERGENCY DEPARTMENT COURSE AND TREATMENT/PLAN/DISPOSITION: The patient will be discharged home. I do not think this is a PE or cardiac in nature. DIAGNOSIS: Chest pain - cause not clear. D: Anup Sandoval DO TD: 15:16 JOB #: [id number] Electronically signed by: NEGRITA Sandoval D.O. 01/02/18 07:37 Transcribed by: am 12/29/2017 15:00 CHEST 2 VIEWS Observed: 12/28/2017 Status: F Source: [facility] 2:[address] [place], [place] [address] Patient: CASSIE HILL Phone#: : [phone] Age: 32 Gender: F Pt. Type: ER Account: [id number] Location: [facility] Ordering: ANUP SANDOVAL Exam Date: 12/28/2017/14:23 Family Phys: SHARDA GIRALDO Charge Code: 950288 Physician: Edwards Order #: [id number] DLP Dose#: PROCEDURE: X-RAY CHEST 2 VIEWS COMPARISON: [facility], XR, CHEST AP, 11/09/2017, 13:42. INDICATIONS: Chest pain FINDINGS: LUNGS: Normal. No significant pulmonary parenchymal abnormalities. VASCULATURE: Normal. Unremarkable pulmonary vasculature. CARDIAC: Normal. No cardiac silhouette abnormality or cardiomegaly. MEDIASTINUM: Normal. No visible mass or adenopathy. PLEURA: Normal. No effusion or pleural thickening. BONES: Hurley rods are present fixating the thoracic spine. OTHER: A right-sided port catheter is present with the tip at the junction of the superior vena cava and right atrium. CONCLUSION: No acute disease. No significant change has occurred. Dictated by: Adrianne Menjivar MD on 12/28/2017 at 14:50 Approved by: Adrianne Menjivar MD on 12/28/2017 at 14:50 D-DIMER, QUANTITATIVE Collected: 12/28/2017 Status: F Source: [facility] 1:00 PM [facility] REPOSITORY TYPE CODE TESTS RESULT OUT OF REFERENCE UNITS RANGE LAB D-DIMER, QUANTITATI VE(LOINC) D-DIMER, QUANTITATIVE Result Comment: QUANT D-DIMER LAB D-DIMER QUANT(LOINC) 0 - 230 ng/ml D-DIMER QUANT 152 Performed By: #### [id number] #### [facility],[address] [place] [address] CBC Collected: 12/28/2017 Status: F Source: [facility] 1:00 PM [facility] REPOSITORY TYPE CODE TESTS RESULT OUT OF RANGE REFERENCE UNITS LAB CBC(LOINC) CBC Result Comment: CBC-COMPLETE BLOOD COUNT LAB WBC(LOINC) 4.5 - 10.8 x 10EE3/UL WBC Low 4.4 LAB RBC(LOINC) 4.10 - x 10EE6/UL 5.30 RBC 4.10 LAB HEMOGLOBIN(LOINC 12.0 - g/dl ) 16.0 Low HEMOGLOBIN 10.5 LAB HEMATOCRIT(LOINC 34.0 - % ) 46.0 Low HEMATOCRIT 31.9 LAB MCV(LOINC) 80 - 99 fl MCV Low 78 LAB MCH(LOINC) 27 - 33 pg MCH Low 26 LAB MCHC(LOINC) 32 - 36 X10 3 MCHC 33 LAB RDW/CV(LOINC) 12.0 - % 15.6 RDW/CV High 19.3 LAB PLATELET(LOINC) 150 - 450 x10EE3/UL PLATELET 274 LAB MPV(LOINC) 6.6 - 10.5 fl MPV 8.1 Result Comment: AUTOMATED DIFFERENTIAL LAB NEUT %(LOINC) 46.0 - % 76.0 NEUT % 76.8 High LAB LYMPH %(LOINC) 20.0 - % 45.0 LYMPH % 13.8 Low LAB MONOS %(LOINC) 0.0 - 10.0 % MONOS % 8.1 LAB EO %(LOINC) 0.0 - 7.0 % EO % 0.6 LAB BASO %(LOINC) 0.0 - 2.0 % BASO % 0.7 LAB Lymph #(LOINC) 0.80 - x10EE3/ 2.80 UL Lymph # 0.60 Low LAB Neut #(LOINC) 1.50 - x10EE3/ 7.10 UL Neut # 3.40 LAB Shannon #(LOINC) 0.20 - x10EE3/ 1.00 UL Shannon # 0.40 LAB EO #(LOINC) 0.00 - x10EE3/ 0.50 UL EO # 0.00 LAB Baso #(LOINC) 0.00 - x10EE3/ 0.10 UL Baso # 0.00 LAB MANUAL DIFF(LOINC) MANUAL N/A DIFF LAB MORPHOLOGY(CRYSTAL NC) SEE BELOW MORPHOLOGY LAB MICROCYTES(LO INC) 2+ MICROCYTES LAB POIKILO(LOINC ) POIKILO 1+ LAB Other(LOINC) Other SCHISTOCYTES 1+ Result Comment: DACROCYTES 1+, ELLIPTOCYTES 1+ {CD] Performed By: #### [id number] #### [address] [address] TROPONIN Collected: 12/28/2017 Status: F Source: [facility] 1:00 [facility] REPOSITORY TYPE CODE TESTS RESULT OUT OF REFERENCE UNITS RANGE LAB TROPONIN 0.00 - 0.05 ng/ml I(LOINC) TROPONIN I 0.04 Result Comment: Elevated troponin (above the 99th percentile) usually indicates myocardial ischemia. Results must be interpreted within the clinical setting. 1.Non-ischemic pathology can also cause elevated troponin levels (e.g., acute pulmonary embolism, myocarditis, pericarditis, heart failure, intracranial injury, rhabdomyolisis, sepsis, shock and renal insufficiency). 2.Approximately 1% of healthy adults have elevated troponin levels. 3.Analytical false positive results rarely occur(due to multiple interferences such as heterophile antibodies). Performed By: #### [id number] #### [address] [address] CMP WITH EGFR Collected: 12/28/2017 Status: F Source: [facility] 1:[address] [place] [address] REPOSITORY TYPE CODE TESTS RESULT OUT OF RANGE REFERENCE UNITS LAB CMP with eGFR(LOINC) CMP with eGFR Result Comment: COMPREHENSIVE METABOLIC PANEL LAB SODIUM(LOINC) 136 - 145 mmol/l SODIUM 139 LAB POTASSIUM(LOINC) 3.5 - 5.1 mmol/L POTASSIUM 3.7 LAB CHLORIDE(LOINC) 98 - 107 mmol/L CHLORIDE 106 LAB CO2(INC) 21.0 - mmol/L 31.0 CO2 23.4 LAB GLUCOSE(LOINC) 74 - 106 mg/dl GLUCOSE 79 LAB BUN(LOINC) 6 - 20 mg/dl BUN High 23 LAB CREATININE(LOINC) 0.6 - 1.2 mg/dl CREATININE 0.7 LAB AST/SGOT(LOINC) 13 - 39 U/L AST/SGOT 18 LAB ALK PHOS(LOINC) 38 - 126 U/L ALK PHOS 65 LAB CALCIUM(LOINC) 8.6 - mg/dl 10.2 CALCIUM 9.1 LAB TOTAL 6.4 - 8.3 g/dl PROTEIN(LOINC) TOTAL PROTEIN 6.8 LAB ALBUMIN(LOINC) 3.4 - 4.8 g/dL ALBUMIN 3.9 LAB GLOBULIN(LOINC) 1.5 - 3.8 G/DL GLOBULIN 2.9 LAB A/G RATIO(LOINC) 0.9 - 1.6 A/G RATIO 1.3 LAB TOTAL BILI(LOINC) 0.0 - 1.5 mg/dl TOTAL BILI 0.5 LAB B/C RATIO(LOINC) 0 - 30 ratio B/C High RATIO 33 LAB ALT/SGPT(LOINC) 8 - 35 U/L ALT/SGPT 15 LAB ANION GAP(LOINC) 10 - 20 mmol/L ANION GAP 13 LAB AGE(LOINC) years AGE 32 LAB eGFR(LOINC) 60 - 999 ML/MINUTE eGFR >60 LAB eGFR(AA)(LOINC) 60 - 999 ML/MINUTE eGFR(AA) >60 Result Comment: ACCORDING TO THE NATIONAL KIDNEY DISEASE EDUCATION PROGRAM(NKDE), A NORMAL eGFR IS A VALUE GREATER THAN OR EQUAL TO 60 ML/MIN/1.73 SQ METERS. CHRONIC KIDNEY DISEASE: <60mL/MIN/1.73 SQ METERS KIDNEY FAILURE: <15mL/MIN/1.73 SQ METERS THIS TEST SHOULD ONLY BE USED FOR PATIENTS 18 YEARS OF AGE AND OLDER. Performed By: #### [id number] #### [place] [address] MAGNESIUM Collected: 12/28/2017 Status: F Source: [facility] 1:00 PM [facility] REPOSITORY TYPE CODE TESTS RESULT OUT OF REFERENCE UNITS RANGE LAB MAGNESIUM( 1.6 - 2.6 mg/dl LOINC) MAGNESIUM 1.9 Performed By: #### [id number] #### [place] [address] TUMOR BOARD NOTE-BREAST Observed: 12/28/2017 Status: UNK Source: [facility] 7:09 AM [facility] REPOSITORY Note: Tumor Board Note CASSIE HILL was presented at Breast Tumor Board Conference on 28-Dec-2017 . Present at Conference: Medical Oncology, Radiation Oncology, Surgical Oncology and Imaging Reviewed Presenter: Dr. Lalitha Mathis Impression: Presented with right breast and axillary lymph node biopsy. Clinical stage: [id number] stage group IIA. S/P neoadjuvant chemotherapy. IDC (Infiltrating Ductal CA). Grade is III. ER: Positive. KS: Positive. HER: Negative. Laterality: Right. Recommendations: Referrals: Clinical Trial ([id number]). Represent Patient. Axillary dissection possible. Mastectomy and [place] Lymph Node Biopsy. Cancer Staging: Breast AJCC Edition: 7th (AJCC), Diagnosis Date: Jul 2017, IIA, T1b N1 M0 Disclaimer SCC tumor board recommendations represent the consensus opinion of physicians present at a weekly patient care conference. The treating SCC physician is not always present, and many of the physicians formulating the recommendation have not personally seen or examined the patient under discussion. It is understood that the treating SCC physician considers the expertise of the Tumor Board Recommendation in formulating his/her plan for the patient. However, in many situations, based on individualized patient considerations, a different plan is determined by the treating physician to be the optimal medical management. Electronic Signatures: Aracely De Leon (PT REG) (Signed 04-Jan-2018 13:37) Entered: Tumor Board, Disclaimer Authored: Tumor Board, Cancer Staging, Disclaimer Last Updated: 04-Jan-2018 13:37 by Aracely De Leon (PT REG) CMP WITH EGFR Collected: 12/25/2017 Status: F Source: [facility] 11:01 [facility] REPOSITORY TYPE CODE TESTS RESULT OUT OF RANGE REFERENCE UNITS LAB CMP with eGFR(LOINC) CMP with eGFR Result Comment: COMPREHENSIVE METABOLIC PANEL LAB SODIUM(LOINC) 136 - 145 mmol/l SODIUM 137 LAB POTASSIUM(LOINC) 3.5 - 5.1 mmol/L POTASSIUM 4.1 LAB CHLORIDE(LOINC) 98 - 107 mmol/L CHLORIDE 104 LAB CO2(LOINC) 21.0 - mmol/L 31.0 CO2 26.6 LAB GLUCOSE(LOINC) 74 - 106 mg/dl GLUCOSE 75 LAB BUN(LOINC) 6 - 20 mg/dl BUN 19 LAB CREATININE(LOINC) 0.6 - 1.2 mg/dl CREATININE 0.9 LAB AST/SGOT(LOINC) 13 - 39 U/L AST/SGOT 18 LAB ALK PHOS(LOINC) 38 - 126 U/L ALK PHOS 71 LAB CALCIUM(LOINC) 8.6 - mg/dl 10.2 CALCIUM 9.9 LAB TOTAL PROTEIN(LOINC) 6.4 - 8.3 g/dl TOTAL PROTEIN 8.0 LAB ALBUMIN(LOINC) 3.4 - 4.8 g/dL ALBUMIN 4.5 LAB GLOBULIN(LOINC) 1.5 - 3.8 G/DL GLOBULIN 3.5 LAB A/G RATIO(LOINC) 0.9 - 1.6 A/G RATIO 1.3 LAB TOTAL BILI(LOINC) 0.0 - 1.5 mg/dl TOTAL BILI 0.5 LAB B/C RATIO(LOINC) 0 - 30 ratio B/C RATIO 21 LAB ALT/SGPT(LOINC) 8 - 35 U/L ALT/SGPT 12 LAB ANION GAP(LOINC) 10 - 20 mmol/L ANION GAP 11 LAB AGE(LOINC) years AGE 32 LAB eGFR(LOINC) 60 - 999 ML/MINUTE eGFR >60 LAB eGFR(AA)(LOINC) 60 - 999 ML/MINUTE eGFR(AA) >60 Result Comment: ACCORDING TO THE NATIONAL KIDNEY DISEASE EDUCATION PROGRAM(NKDE), A NORMAL eGFR IS A VALUE GREATER THAN OR EQUAL TO 60 ML/MIN/1.73 SQ METERS. CHRONIC KIDNEY DISEASE: <60mL/MIN/1.73 SQ METERS KIDNEY FAILURE: <15mL/MIN/1.73 SQ METERS THIS TEST SHOULD ONLY BE USED FOR PATIENTS 18 YEARS OF AGE AND OLDER. Performed By: #### [id number] #### [facility],[address] [place] [address] CBC Collected: 12/25/2017 Status: F Source: [facility] 11:01 AM [facility] REPOSITORY TYPE CODE TESTS RESULT OUT OF RANGE REFERENCE UNITS LAB CBC(LOINC) CBC Result Comment: CBC-COMPLETE BLOOD COUNT LAB WBC(LOINC) 4.5 - 10.8 x 10EE3/UL WBC Low 4.2 LAB RBC(LOINC) 4.10 - x 10EE6/UL 5.30 RBC 4.66 LAB HEMOGLOBIN(LOINC 12.0 - g/dl ) 16.0 HEMOGLOBIN 12.1 LAB HEMATOCRIT(LOINC 34.0 - % ) 46.0 HEMATOCRIT 36.2 LAB MCV(LOINC) 80 - 99 fl MCV Low 78 LAB MCH(LOINC) 27 - 33 pg MCH Low 26 LAB MCHC(LOINC) 32 - 36 X10 3 MCHC 33 LAB RDW/CV(LOINC) 12.0 - % 15.6 RDW/CV High 20.9 LAB PLATELET(LOINC) 150 - 450 x10EE3/UL PLATELET 299 LAB MPV(LOINC) 6.6 - 10.5 fl MPV 8.3 Result Comment: AUTOMATED DIFFERENTIAL LAB NEUT %(LOINC) 46.0 - % 76.0 NEUT % 84.0 High LAB LYMPH %(LOINC) 20.0 - % Low 45.0 LYMPH % 9.7 LAB MONOS %(LOINC) 0.0 - 10.0 % MONOS % 4.9 LAB EO %(LOINC) 0.0 - 7.0 % EO % 0.5 LAB BASO %(LOINC) 0.0 - 2.0 % BASO % 0.9 LAB Lymph #(LOINC) 0.80 - x10EE3/ Low 2.80 UL Lymph # 0.40 LAB Neut #(LOINC) 1.50 - x10EE3/ 7.10 UL Neut # 3.50 LAB Shannon #(LOINC) 0.20 - x10EE3/ 1.00 UL Shannon # 0.20 LAB EO #(LOINC) 0.00 - x10EE3/ 0.50 UL EO # 0.00 LAB Baso #(LOINC) 0.00 - x10EE3/ 0.10 UL Baso # 0.00 LAB MANUAL DIFF(LOINC) MANUAL DIFF REVIEWED LAB MORPHOLOGY(LOIN C) MORPHOLOGY SEE BELOW LAB PLT EST(LOINC) PLT EST NORMAL LAB ANISO(LOINC) ANISO 2+ LAB MICROCYTES(CRYSTAL NC) MICROCYTES 2+ Result Comment: {CD] Performed By: #### [id number] #### [facility],[address] [place] [address] CMP WITH EGFR Collected: 12/18/2017 Status: F Source: [facility] 3:05 PM [facility] REPOSITORY TYPE CODE TESTS RESULT OUT OF RANGE REFERENCE UNITS LAB CMP with eGFR(LOINC) CMP with eGFR Result Comment: COMPREHENSIVE METABOLIC PANEL LAB SODIUM(LOINC) 136 - 145 mmol/l SODIUM 138 LAB POTASSIUM(LOINC) 3.5 - 5.1 mmol/L POTASSIUM 3.8 LAB CHLORIDE(LOINC) 98 - 107 mmol/L CHLORIDE 103 LAB CO2(LOINC) 21.0 - mmol/L 31.0 CO2 26.2 LAB GLUCOSE(LOINC) 74 - 106 mg/dl GLUCOSE 75 LAB BUN(LOINC) 6 - 20 mg/dl BUN High 23 LAB CREATININE(LOINC) 0.6 - 1.2 mg/dl CREATININE 0.8 LAB AST/SGOT(LOINC) 13 - 39 U/L AST/SGOT 18 LAB ALK PHOS(LOINC) 38 - 126 U/L ALK PHOS 82 LAB CALCIUM(LOINC) 8.6 - mg/dl 10.2 CALCIUM 9.8 LAB TOTAL 6.4 - 8.3 g/dl PROTEIN(LOINC) TOTAL PROTEIN 7.6 LAB ALBUMIN(LOINC) 3.4 - 4.8 g/dL ALBUMIN 4.4 LAB GLOBULIN(LOINC) 1.5 - 3.8 G/DL GLOBULIN 3.2 LAB A/G RATIO(LOINC) 0.9 - 1.6 A/G RATIO 1.4 LAB TOTAL BILI(LOINC) 0.0 - 1.5 mg/dl TOTAL BILI 0.4 LAB B/C RATIO(LOINC) 0 - 30 ratio B/C RATIO 29 LAB ALT/SGPT(LOINC) 8 - 35 U/L ALT/SGPT 15 LAB ANION GAP(LOINC) 10 - 20 mmol/L ANION GAP 13 LAB AGE(LOINC) years AGE 32 LAB eGFR(LOINC) 60 - 999 ML/MINUTE eGFR >60 LAB eGFR(AA)(LOINC) 60 - 999 ML/MINUTE eGFR(AA) >60 Result Comment: ACCORDING TO THE NATIONAL KIDNEY DISEASE EDUCATION PROGRAM(NKDE), A NORMAL eGFR IS A VALUE GREATER THAN OR EQUAL TO 60 ML/MIN/1.73 SQ METERS. CHRONIC KIDNEY DISEASE: <60mL/MIN/1.73 SQ METERS KIDNEY FAILURE: <15mL/MIN/1.73 SQ METERS THIS TEST SHOULD ONLY BE USED FOR PATIENTS 18 YEARS OF AGE AND OLDER. Performed By: #### [id number] #### [facility],[address] [place] [address] CBC Collected: 12/18/2017 Status: F Source: [facility] 3:05 PM [facility] REPOSITORY TYPE CODE TESTS RESULT OUT OF RANGE REFERENCE UNITS LAB CBC(LOINC) CBC Result Comment: CBC-COMPLETE BLOOD COUNT LAB WBC(LOINC) 4.5 - 10.8 x 10EE3/UL WBC 5.1 LAB RBC(LOINC) 4.10 - x 10EE6/UL 5.30 RBC 4.32 LAB HEMOGLOBIN(LOINC 12.0 - g/dl ) 16.0 Low HEMOGLOBIN 11.2 LAB HEMATOCRIT(LOINC 34.0 - % ) 46.0 Low HEMATOCRIT 33.2 LAB MCV(LOINC) 80 - 99 fl MCV Low 77 LAB MCH(LOINC) 27 - 33 pg MCH Low 26 LAB MCHC(LOINC) 32 - 36 X10 3 MCHC 34 LAB RDW/CV(LOINC) 12.0 - % 15.6 RDW/CV High 24.2 LAB PLATELET(LOINC) 150 - 450 x10EE3/UL PLATELET 259 LAB MPV(LOINC) 6.6 - 10.5 fl MPV 8.6 Result Comment: AUTOMATED DIFFERENTIAL LAB NEUT %(LOINC) 46.0 - 76.0 % NEUT % High 84.4 LAB LYMPH %(LOINC) 20.0 - 45.0 % Low LYMPH % 10.6 LAB MONOS %(LOINC) 0.0 - 10.0 % MONOS % 3.7 LAB EO %(LOINC) 0.0 - 7.0 % EO % 0.4 LAB BASO %(LOINC) 0.0 - 2.0 % BASO % 0.9 LAB Lymph #(LOINC) 0.80 - 2.80 x10EE3/U Low L Lymph # 0.50 LAB Neut #(LOINC) 1.50 - 7.10 x10EE3/U L Neut # 4.30 LAB Shannon #(LOINC) 0.20 - 1.00 x10EE3/U L Shannon # 0.20 LAB EO #(LOINC) 0.00 - 0.50 x10EE3/U L EO # 0.00 LAB Baso #(LOINC) 0.00 - 0.10 x10EE3/U L Baso # 0.00 LAB MANUAL DIFF(LOINC) MANUAL DIFF N/A LAB MORPHOLOGY(LOIN C) MORPHOLOGY SEE BELOW LAB PLT EST(LOINC) PLT EST NORMAL LAB ANISO(LOINC) ANISO 3+ LAB MICROCYTES(CRYSTAL NC) MICROCYTES 3+ Result Comment: {CD] Performed By: #### [id number] #### [facility],[address] [place], [place] [id number] CMP WITH EGFR Collected: 12/11/2017 Status: F Source: [facility] 10:57 AM [facility] REPOSITORY TYPE CODE TESTS RESULT OUT OF RANGE REFERENCE UNITS LAB CMP with eGFR(LOINC) CMP with eGFR Result Comment: COMPREHENSIVE METABOLIC PANEL LAB SODIUM(LOINC) 136 - 145 mmol/l SODIUM 138 LAB POTASSIUM(LOINC) 3.5 - 5.1 mmol/L POTASSIUM 3.9 LAB CHLORIDE(LOINC) 98 - 107 mmol/L CHLORIDE 105 LAB CO2(LOINC) 21.0 - mmol/L 31.0 CO2 27.6 LAB GLUCOSE(LOINC) 74 - 106 mg/dl GLUCOSE 80 LAB BUN(LOINC) 6 - 20 mg/dl BUN 18 LAB CREATININE(LOINC) 0.6 - 1.2 mg/dl CREATININE 0.9 LAB AST/SGOT(LOINC) 13 - 39 U/L AST/SGOT 21 LAB ALK PHOS(LOINC) 38 - 126 U/L ALK PHOS 72 LAB CALCIUM(LOINC) 8.6 - mg/dl 10.2 CALCIUM 10.1 LAB TOTAL PROTEIN(LOINC) 6.4 - 8.3 g/dl TOTAL PROTEIN 7.5 LAB ALBUMIN(LOINC) 3.4 - 4.8 g/dL ALBUMIN 4.3 LAB GLOBULIN(LOINC) 1.5 - 3.8 G/DL GLOBULIN 3.2 LAB A/G RATIO(LOINC) 0.9 - 1.6 A/G RATIO 1.3 LAB TOTAL BILI(LOINC) 0.0 - 1.5 mg/dl TOTAL BILI 0.5 LAB B/C RATIO(LOINC) 0 - 30 ratio B/C RATIO 20 LAB ALT/SGPT(LOINC) 8 - 35 U/L ALT/SGPT 17 LAB ANION GAP(LOINC) 10 - 20 mmol/L ANION Low GAP 9 LAB AGE(LOINC) years AGE 32 LAB eGFR(LOINC) 60 - 999 ML/MINUTE eGFR >60 LAB eGFR(AA)(LOINC) 60 - 999 ML/MINUTE eGFR(AA) >60 Result Comment: ACCORDING TO THE NATIONAL KIDNEY DISEASE EDUCATION PROGRAM(NKDE), A NORMAL eGFR IS A VALUE GREATER THAN OR EQUAL TO 60 ML/MIN/1.73 SQ METERS. CHRONIC KIDNEY DISEASE: <60mL/MIN/1.73 SQ METERS KIDNEY FAILURE: <15mL/MIN/1.73 SQ METERS THIS TEST SHOULD ONLY BE USED FOR PATIENTS 18 YEARS OF AGE AND OLDER. Performed By: #### [id number] #### [facility],[address] [place] [id number] CBC Collected: 12/11/2017 Status: F Source: [facility] 10:57 AM [facility] REPOSITORY TYPE CODE TESTS RESULT OUT OF RANGE REFERENCE UNITS LAB CBC(LOINC) CBC Result Comment: CBC-COMPLETE BLOOD COUNT LAB WBC(LOINC) 4.5 - 10.8 x 10EE3/UL WBC Low 2.8 LAB RBC(LOINC) 4.10 - x 10EE6/UL 5.30 RBC 4.58 LAB HEMOGLOBIN(LOINC 12.0 - g/dl ) 16.0 Low HEMOGLOBIN 11.5 LAB HEMATOCRIT(LOINC 34.0 - % ) 46.0 HEMATOCRIT 34.8 LAB MCV(LOINC) 80 - 99 fl MCV Low 76 LAB MCH(LOINC) 27 - 33 pg MCH Low 25 LAB MCHC(LOINC) 32 - 36 X10 3 MCHC 33 LAB RDW/CV(LOINC) 12.0 - % 15.6 RDW/CV High 26.2 LAB PLATELET(LOINC) 150 - 450 x10EE3/UL PLATELET 208 LAB MPV(LOINC) 6.6 - 10.5 fl MPV 8.9 Result Comment: AUTOMATED DIFFERENTIAL LAB NEUT %(LOINC) 46.0 - % 76.0 NEUT % 82.2 High LAB LYMPH %(LOINC) 20.0 - % Low 45.0 LYMPH % 12.9 LAB MONOS %(LOINC) 0.0 - 10.0 % MONOS % 3.1 LAB EO %(LOINC) 0.0 - 7.0 % EO % 1.1 LAB BASO %(LOINC) 0.0 - 2.0 % BASO % 0.7 LAB Lymph #(LOINC) 0.80 - x10EE3/ Low 2.80 UL Lymph # 0.40 LAB Neut #(LOINC) 1.50 - x10EE3/ 7.10 UL Neut # 2.30 LAB Shannon #(LOINC) 0.20 - x10EE3/ Low 1.00 UL Shannon # 0.10 LAB EO #(LOINC) 0.00 - x10EE3/ 0.50 UL EO # 0.00 LAB Baso #(LOINC) 0.00 - x10EE3/ 0.10 UL Baso # 0.00 LAB MANUAL DIFF(LOINC) MANUAL DIFF REVIEWED LAB MORPHOLOGY(LOIN C) MORPHOLOGY SEE BELOW LAB PLT EST(LOINC) PLT EST NORMAL LAB ANISO(LOINC) ANISO 2+ LAB MICROCYTES(CRYSTAL NC) MICROCYTES 2+ LAB HYPOCHROM(LOIN C) HYPOCHROM 1+ LAB POIKILO(LOINC) POIKILO 1+ Result Comment: {CD] Performed By: #### [id number] #### [facility],[address] [place] [address] CMP WITH EGFR Collected: 12/04/2017 Status: F Source: [facility] 11:35 AM [facility] REPOSITORY TYPE CODE TESTS RESULT OUT OF RANGE REFERENCE UNITS LAB CMP with eGFR(LOINC) CMP with eGFR Result Comment: COMPREHENSIVE METABOLIC PANEL LAB SODIUM(LOINC) 136 - 145 mmol/l SODIUM 138 LAB POTASSIUM(LOINC) 3.5 - 5.1 mmol/L POTASSIUM 4.7 LAB CHLORIDE(LOINC) 98 - 107 mmol/L CHLORIDE 106 LAB CO2(LOINC) 21.0 - mmol/L 31.0 CO2 26.5 LAB GLUCOSE(LOINC) 74 - 106 mg/dl GLUCOSE 78 LAB BUN(LOINC) 6 - 20 mg/dl BUN 7 LAB CREATININE(LOINC) 0.6 - 1.2 mg/dl CREATININE 0.9 LAB AST/SGOT(LOINC) 13 - 39 U/L AST/SGOT 21 LAB ALK PHOS(LOINC) 38 - 126 U/L ALK PHOS 62 LAB CALCIUM(LOINC) 8.6 - mg/dl 10.2 CALCIUM 9.9 LAB TOTAL PROTEIN(LOINC) 6.4 - 8.3 g/dl TOTAL PROTEIN 7.7 LAB ALBUMIN(LOINC) 3.4 - 4.8 g/dL ALBUMIN 4.5 LAB GLOBULIN(LOINC) 1.5 - 3.8 G/DL GLOBULIN 3.2 LAB A/G RATIO(LOINC) 0.9 - 1.6 A/G RATIO 1.4 LAB TOTAL BILI(LOINC) 0.0 - 1.5 mg/dl TOTAL BILI 0.5 LAB B/C RATIO(LOINC) 0 - 30 ratio B/C RATIO 8 LAB ALT/SGPT(LOINC) 8 - 35 U/L ALT/SGPT 23 LAB ANION GAP(LOINC) 10 - 20 mmol/L ANION GAP 10 LAB AGE(LOINC) years AGE 32 LAB eGFR(LOINC) 60 - 999 ML/MINUTE eGFR >60 LAB eGFR(AA)(LOINC) 60 - 999 ML/MINUTE eGFR(AA) >60 Result Comment: ACCORDING TO THE NATIONAL KIDNEY DISEASE EDUCATION PROGRAM(NKDE), A NORMAL eGFR IS A VALUE GREATER THAN OR EQUAL TO 60 ML/MIN/1.73 SQ METERS. CHRONIC KIDNEY DISEASE: <60mL/MIN/1.73 SQ METERS KIDNEY FAILURE: <15mL/MIN/1.73 SQ METERS THIS TEST SHOULD ONLY BE USED FOR PATIENTS 18 YEARS OF AGE AND OLDER. Performed By: #### [id number] #### [facility],[address] [place] [address] CBC Collected: 12/04/2017 Status: F Source: [facility] 11:35 AM [facility] REPOSITORY TYPE CODE TESTS RESULT OUT OF RANGE REFERENCE UNITS LAB CBC(LOINC) CBC Result Comment: CBC-COMPLETE BLOOD COUNT LAB WBC(LOINC) 4.5 - 10.8 x 10EE3/UL WBC Low 4.4 LAB RBC(LOINC) 4.10 - x 10EE6/UL 5.30 RBC 4.63 LAB HEMOGLOBIN(LOINC 12.0 - g/dl ) 16.0 Low HEMOGLOBIN 11.4 LAB HEMATOCRIT(LOINC 34.0 - % ) 46.0 HEMATOCRIT 35.1 LAB MCV(LOINC) 80 - 99 fl MCV Low 76 LAB MCH(LOINC) 27 - 33 pg MCH Low 25 LAB MCHC(LOINC) 32 - 36 X10 3 MCHC 32 LAB RDW/CV(LOINC) 12.0 - % 15.6 RDW/CV High 28.7 LAB PLATELET(LOINC) 150 - 450 x10EE3/UL PLATELET 240 LAB MPV(LOINC) 6.6 - 10.5 fl MPV 9.3 Result Comment: AUTOMATED DIFFERENTIAL LAB NEUT %(LOINC) 46.0 - % 76.0 NEUT % 82.1 High LAB LYMPH %(LOINC) 20.0 - % 45.0 LYMPH % 12.0 Low LAB MONOS %(LOINC) 0.0 - 10.0 % MONOS % 3.1 LAB EO %(LOINC) 0.0 - 7.0 % EO % 1.8 LAB BASO %(LOINC) 0.0 - 2.0 % BASO % 1.0 LAB Lymph #(LOINC) 0.80 - x10EE3/ 2.80 UL Lymph # 0.50 Low LAB Neut #(LOINC) 1.50 - x10EE3/ 7.10 UL Neut # 3.60 LAB Shannon #(LOINC) 0.20 - x10EE3/ 1.00 UL Shannon # 0.10 Low LAB EO #(LOINC) 0.00 - x10EE3/ 0.50 UL EO # 0.10 LAB Baso #(LOINC) 0.00 - x10EE3/ 0.10 UL Baso # 0.00 LAB MANUAL DIFF(LOINC) MANUAL N/A DIFF LAB MORPHOLOGY(CRYSTAL NC) SEE BELOW MORPHOLOGY LAB PLT EST(LOINC) PLT EST NORMAL LAB ANISO(LOINC) ANISO 3+ LAB Other(LOINC) Other RARE SCHISTOCYTES Result Comment: {CD] Performed By: #### [id number] #### [facility],[address] [place] [address] CMP WITH EGFR Collected: 11/27/2017 Status: F Source: [facility] 3:53 PM [facility] REPOSITORY TYPE CODE TESTS RESULT OUT OF RANGE REFERENCE UNITS LAB CMP with eGFR(INC) CMP with eGFR Result Comment: COMPREHENSIVE METABOLIC PANEL LAB SODIUM(LOINC) 136 - 145 mmol/l SODIUM 136 LAB POTASSIUM(LOINC) 3.5 - 5.1 mmol/L POTASSIUM 3.9 LAB CHLORIDE(LOINC) 98 - 107 mmol/L CHLORIDE 102 LAB CO2(LOINC) 21.0 - mmol/L 31.0 CO2 28.0 LAB GLUCOSE(LOINC) 74 - 106 mg/dl GLUCOSE 87 LAB BUN(LOINC) 6 - 20 mg/dl BUN High 25 LAB CREATININE(LOINC) 0.6 - 1.2 mg/dl CREATININE 0.8 LAB AST/SGOT(LOINC) 13 - 39 U/L AST/SGOT 24 LAB ALK PHOS(LOINC) 38 - 126 U/L ALK PHOS 57 LAB CALCIUM(LOINC) 8.6 - mg/dl 10.2 CALCIUM 9.2 LAB TOTAL 6.4 - 8.3 g/dl PROTEIN(LOINC) TOTAL PROTEIN 7.2 LAB ALBUMIN(LOINC) 3.4 - 4.8 g/dL ALBUMIN 4.2 LAB GLOBULIN(LOINC) 1.5 - 3.8 G/DL GLOBULIN 3.0 LAB A/G RATIO(LOINC) 0.9 - 1.6 A/G RATIO 1.4 LAB TOTAL BILI(LOINC) 0.0 - 1.5 mg/dl TOTAL BILI 0.5 LAB B/C RATIO(LOINC) 0 - 30 ratio B/C High RATIO 31 LAB ALT/SGPT(LOINC) 8 - 35 U/L ALT/SGPT High 40 LAB ANION GAP(LOINC) 10 - 20 mmol/L ANION GAP 10 LAB AGE(LOINC) years AGE 32 LAB eGFR(LOINC) 60 - 999 ML/MINUTE eGFR >60 LAB eGFR(AA)(LOINC) 60 - 999 ML/MINUTE eGFR(AA) >60 Result Comment: ACCORDING TO THE NATIONAL KIDNEY DISEASE EDUCATION PROGRAM(NKDE), A NORMAL eGFR IS A VALUE GREATER THAN OR EQUAL TO 60 ML/MIN/1.73 SQ METERS. CHRONIC KIDNEY DISEASE: <60mL/MIN/1.73 SQ METERS KIDNEY FAILURE: <15mL/MIN/1.73 SQ METERS THIS TEST SHOULD ONLY BE USED FOR PATIENTS 18 YEARS OF AGE AND OLDER. Performed By: #### [id number] #### [facility],[address] [place] [address] CBC Collected: 11/27/2017 Status: F Source: [facility] 3:53 PM [facility] REPOSITORY TYPE CODE TESTS RESULT OUT OF RANGE REFERENCE UNITS LAB CBC(LOINC) CBC Result Comment: CBC-COMPLETE BLOOD COUNT LAB WBC(LOINC) 4.5 - 10.8 x 10EE3/UL WBC 9.5 LAB RBC(LOINC) 4.10 - x 10EE6/UL 5.30 RBC 4.46 LAB HEMOGLOBIN(LOINC 12.0 - g/dl ) 16.0 Low HEMOGLOBIN 10.7 LAB HEMATOCRIT(LOINC 34.0 - % ) 46.0 Low HEMATOCRIT 32.7 LAB MCV(LOINC) 80 - 99 fl MCV Low 73 LAB MCH(LOINC) 27 - 33 pg MCH Low 24 LAB MCHC(LOINC) 32 - 36 X10 3 MCHC 33 LAB RDW/CV(LOINC) 12.0 - % 15.6 RDW/CV High 31.2 LAB PLATELET(LOINC) 150 - 450 x10EE3/UL PLATELET 223 LAB MPV(LOINC) 6.6 - 10.5 fl MPV 9.1 Result Comment: AUTOMATED DIFFERENTIAL LAB NEUT %(LOINC) 46.0 - % 76.0 NEUT % 89.4 High LAB LYMPH %(LOINC) 20.0 - % Low 45.0 LYMPH % 7.1 LAB MONOS %(LOINC) 0.0 - 10.0 % MONOS % 2.3 LAB EO %(LOINC) 0.0 - 7.0 % EO % 0.8 LAB BASO %(LOINC) 0.0 - 2.0 % BASO % 0.4 LAB Lymph #(LOINC) 0.80 - x10EE3/ Low 2.80 UL Lymph # 0.70 LAB Neut #(LOINC) 1.50 - x10EE3/ 7.10 UL Neut # 8.50 High LAB Shannon #(LOINC) 0.20 - x10EE3/ 1.00 UL Shannon # 0.20 LAB EO #(LOINC) 0.00 - x10EE3/ 0.50 UL EO # 0.10 LAB Baso #(LOINC) 0.00 - x10EE3/ 0.10 UL Baso # 0.00 LAB MANUAL DIFF(LOINC) MANUAL DIFF N/A LAB MORPHOLOGY(LOIN C) MORPHOLOGY REVIEWED Result Comment: {CD] Performed By: #### [id number] #### [facility],[address] [place], [place] [id number] DISCHARGE SUMMARY Observed: 11/22/2017 Status: F Source: [facility] 10:57 PM [facility] DISCHARGE SUMMARY NAME NUMBER SEX AGE ADMIT DISC TYPE MED.RECORD# SERGIO Figueroa [id number] F 32 11/04/17 11/08/17 O/P [id number] ROOM:[facility] DATE OF :1985 PHYSICIAN NO.:[id number] PHYSICIAN NAME:NEGRITA FONTAINE MD PHYSICIAN:MAGALIS GIRALDO FINAL DIAGNOSES: 1. Intractable bone pain secondary to chemotherapy. 2. Breast cancer with lymph node metastasis. HISTORY OF PRESENT ILLNESS: This is a 32-year-old female with recently-diagnosed breast cancer, status post surgery with lymph node metastasis. She has been initiated on chemotherapy. She received Taxol as an additive to her recent treatment and also colony-stimulating factors. Her white count went up. She experienced extensive bone pain of a pressure type in all the bones of her body. She felt it mostly in her sternum, hip area, thighs and arms. It is very severe. She came to the Emergency Room multiple times to be treated. She received a prescription for oxycodone, which she took. It was not adequately controlling her pain, and she returned and was admitted for further management. DIAGNOSTIC DATA: On discharge, white count is 33.7, hemoglobin 9.9, hematocrit 30.6, MCV 68, MCH 22, sodium 136, potassium 4.4, chloride 104, CO2 24.5, BUN 11, creatinine 0.7, and glucose 116. Urine is negative. HOSPITAL COURSE: For a full history and physical, please see chart. For brief summary, see above. She received IV fluids and pain control with dexamethasone, oxycodone and Dilaudid for breakthrough pain. She had leukocytosis secondary to the stimulating medication. She improved with treatment. Last evening and today she has not required any breakthrough treatment with Dilaudid. Oxycodone had been increased to 15 mg every six hours. She stated it made her a little bit nauseated. No vomiting. She does have antiemetics at home. Today, on the date of discharge, blood pressure is 102/59, heart rate 53, respirations 14, temperature 97.9, and oxygen saturation 100% on room air. Narcotic use was discussed with her. She gets nauseated with the 15 mg. She will try to cut this down to 10 mg at home. She sees Oncology on Monday, and they will make the decision on further treatment and pain medications. Potential side effects were discussed with her, including respiratory depression, and she verbalizes understanding. She was discharged home in stable condition with the below instructions. MEDICATIONS ON DISCHARGE: (1) Erythromycin eye ointment in both eyes every evening to complete treatment. (2) Oxycodone 15 mg every six hours; try to reduce as below, #84 with no refills given. (3) Advil 400 mg p.r.n. (4) Claritin 10 mg daily. (5) Omeprazole 20 mg daily. (6) Prochlorperazine 10 mg every eight hours p.r.n. (7) Stool softener one tab daily. (8) Dexamethasone 4 mg every 12 hours, to be reevaluated by Oncology on Monday. DISCHARGE INSTRUCTIONS/PLAN: Increase activity as tolerated. No smoking or alcoholic beverages. Diet as tolerated. Follow up with Magalis Kristal on November 14, 2017, at 10:50 a.m. Follow up with Oncology on Monday as scheduled. Try to reduce oxycodone as much as she can to pain tolerance level. Dictated by roro Min for Dr. Fontaine. I examined the patient myself, the above is accurate E&M done by me Aide Fontaine M.D. D: Elizabeth Fontaine MD TD: 12:41 JOB #: [id number] Electronically signed by: NEGRITA FONTAINE MD 11/22/17 22:57 Transcribed by: [email or web address] 11/08/2017 14:25 URINE Collected: 11/04/2017 Status: F Source: [facility] 9:49 PM [facility] REPOSITORY TYPE CODE TESTS RESULT OUT OF REFERENCE UNITS RANGE LAB NEGATIVE UR(LOINC) UR NEGATIVE LAB INTERNAL QC(LOINC) INTERNAL QC PASS LAB EXTERNAL QC DONE?(LOINC) EXTERNAL QC YES DONE? Performed By: #### [id number] #### [facility],[address] [place] [address] ALLERGIES ALLERGIES DATE TYPE / CODE NAME / CODE REACTION SEVERITY SOURCE 11/20/2018 Drug morphine/F0 Rash [place] Allergy/[id number](S [id number](RX [facility] NOMED CT) NORM) Hospital Repository 10/02/2018 Miscellaneous taxol Shortness of [place] Allergy/[id number](S breath [facility] NOMED CT) Hospital Repository Drug atb a white RASH Moderate Kenny Pomerene Allergy/[id number](S pill/793709 (Severity [facility] NOMED CT) 12(RXNORM) Modifier) [facility] (Qualifier Repository Value) ENCOUNTERS ENCOUNTERS ADMIT/DISCHARGE ACCOUNT NUMBER ADMITTING ENCOUNTER LOCATION SOURCE CLASS 11/20/2018 [id number] Ambulatory [facility] ding:OMD Repository 11/20/2018 [id number] Ambulatory [facility]: [place] [facility] Repository 10/11/2018 [id number] Ambulatory [facility] ding:WOBLAB Repository 10/10/2018 [id number] Ambulatory BMSBuilding: [place] BMS.CF.[facility] Repository 10/02/2018 [id number] Ambulatory BMSBuilding: [place] BMS.CF[facility] Repository 10/01/2018 [id number] LALITHA MATHIS Ambulatory [facility] Repository 07/30/2018 [id number] Ambulatory Building:[facility] Repository 07/19/2018/07/19/20 [id number] Ambulatory [place] ding:OT Repository 07/17/2018 [id number] Ambulatory BMSBuilding: [place] BMS.CF.[facility] Repository 07/15/2018/07/15/20 [id number] LITZY, Ambulatory [address] Repository 07/10/2018 [id number] Ambulatory BMSBuilding: [place] BMS.CF.[facility] Repository 07/05/2018/07/05/20 [id number] MOISES GARCÍA Ambulatory [address] Repository 06/19/2018 [id number] Ambulatory BMSBuilding: [place] BMS.CF.[facility] Repository 05/30/2018 [id number] Ambulatory BMSBuilding: [place] [facility]MS.CF.[facility] Repository 05/30/2018 [id number] Ambulatory [facility]: [place] [facility] Repository 05/29/2018 [id number] Ambulatory BMSBuilding: [facility] Repository 05/17/2018 [id number] Ambulatory BMSBuilding: [place] BMS.CF.[facility] Repository 05/16/2018 [id number] Ambulatory BMSBuilding: [place] [facility]MS.CF.[facility] Repository 05/09/2018 [id number] Ambulatory BMSBuilding: [place] BMS[facility]CF[facility] Repository 05/08/2018 [id number] Jonna Hines [facility] ding:[facility] Repository MED ONC 05/03/2018 [id number] Ambulatory BMSBuilding: [place] BMS.CF.[facility] Repository 04/25/2018 [id number] Ambulatory BMSBuilding: [place] BMS.CF.[facility] Repository 04/25/2018 [id number] Ambulatory BMSBuilding: [facility] Repository 04/20/2018 [id number] Ambulatory BMSBuilding: [facility] Repository 04/19/2018 [id number] Ambulatory Building:[facility] Repository 04/19/2018 [id number] Ambulatory Building:[facility] Repository 04/19/2018 [id number] Ambulatory Building:[facility] Repository 04/19/2018 [id number] Ambulatory Building:[facility] Repository 04/19/2018 [id number] Ambulatory BMSBuilding: [facility] Repository 04/17/2018 [id number] Ambulatory BMSBuilding: [place] BMS.CF.[facility] Repository 04/12/2018 [id number] Ambulatory BMSBuilding: [facility] Repository 03/22/2018 [id number] Ambulatory Building:[facility] Repository 03/15/2018 [id number] Ambulatory BMSBuilding: [place] BMS.CF.[facility] Repository 03/13/2018 [id number] Donny [facility] Repository 03/05/2018 [id number] LALITHA MATHIS Ambulatory [facility] Repository 02/21/2018 [id number] Ambulatory [facility] Repository 02/21/2018 [id number] Ambulatory [facility] Repository 02/21/2018/02/24/[id number] Del Ambulatory AMCBuilding: [place] [address] Lalitha AMATO7Room: [facility] EE548Qcu: Repository [id number] 02/13/2018 [id number] Ambulatory BMSBuilding: [place] BMS.CF.[facility] Repository 02/06/2018/02/07/20 [id number] [place], Ambulatory [address] Repository 02/05/2018 [id number] [facility] Repository 01/02/[id number] [facility] [facility] Repository 12/28/2017/12/29/[id number] [facility]COL[facility] Emergency Buildin Kenny Vega Room: ERBed: [facility] Repository 12/26/2017 [id number] [facility] Repository 12/26/[id number] [facility] [address] [facility] Repository 12/26/[id number] [facility] [address] [facility] Repository 12/25/2017/12/25/[id number] Repository 12/19/[id number] [facility] [address] [facility] Repository 12/18/2017/12/18/19 [id number] [facility] [address] [place] [address] Repository 12/12/[id number] [facility] [address] [facility] Repository 12/11/2017/12/11/[id number] Repository 12/05/[id number] [facility] [address] [facility] Repository 12/04/2017/12/04/[id number] Repository 11/28/[id number] [facility] [address] [facility] Repository 11/27/2017/11/27/19 [id number] [facility] Kenny Pomerene [address] [place] [address] Repository 11/22/[id number] [facility] [address] [facility] Repository 11/09/2017/11/09/19 [id number] CHRIS, Emergency Buildin Kenny COOK MD Room: ERBed: [facility] Repository 11/04/2017/11/08/19 [id number] ELIZABETH FONTAINE Ambulatory Buildin Kenny Johnson MD Room: [address] [address] Repository PAYERS PAYERS ENCOUNTER GUARANTOR PAYER SUBSCRIBER SOURCE 11/20/2018 INDERJITSilvia Figueroa Primary JAYDEN Millan [place] [id number] Insurance:UNITED MILLERDOB: [address] [id number] [address]Zil: Number: Repository [id number] (HP) Date:[id number] [address] [address]RH: 11/20/2018 Secondary NOT GIVENUNK [place] Insurance:SELF PAY [facility] Number: Effective Repository Date:2018-01-31 11/20/2018 CASSIE Yi [id number] SR Insurance:UNITED MILLERDOB: [address] [id number] [facility] [place] [address]Xsd: Number: Repository [id number] (HP) Date:1863-69-91GB [address] [address]ZC: 11/20/2018 Secondary NOT GIVENUNK Kassidy Insurance:SELF PAY [facility] Number: Effective Repository Date:2018-11-20 10/11/2018 INDERJITSilvia Figueroa Dora JAYDEN Millan [place] [id number] Insurance:UNITED MILLERDOB: [address] [id number] Hospital [place] [address]Pks: Number: Repository [id number] (HP) Date:0629-60-81BL [address] [place] [address]DU: 10/11/2018 Secondary NOT GIVENUNK [place] Insurance:SELF PAY [facility] Number: Effective Repository Date:2018-10-11 10/10/2018 CASSIE Henry Dora Yi [id number] SR Insurance:UNITED MILLERDOB: [address]10-31[facility] [place] [address]Yav: Number: Repository [id number] (HP) Date:4564-41-67US [address] [address]BC: 10/10/2018 Secondary NOT GIVENUNK [place] Insurance:SELF PAY [facility] Number: Effective Repository Date:2018-10-10 10/02/2018 CASSIE [id number] Insurance:[facility] [address] [id number] [facility] [address]Ozc: Number: Repository [id number] (HP) Date:6820-52-68HY [address] [address]BS: 10/02/2018 Secondary NOT GIVENUNK [place] Insurance:SELF PAY [facility] Number: Effective Repository Date:2018-10-02 10/01/[address] [facility]: [facility] [id number] Repository [facility] Number: [address], [id number] [address] [place] [address] Date:Plan Name:Health [place] [id number]: (HP) 07/30/2018 INDERJITSilvia Dora [facility]LLER [facility] HealthcareD[facility]: Insurance[facility]: Odin Number: [id number] [facility] [id number] [address], Date:8782-99-92Yzbw[address] [address]Vqr: Name:[place]NA[place] [id number]: (HP) (HP) 07/19/2018 INDERJITSilvia MUELLER Kassidyrosa [id number] Insurance:UNITED CHICAGODOB: [address] [id number] [facility] [address]Aql: Number: Repository [id number] (HP) Date:7656-11-28UC [address] [address]HW: 07/19/2018 Secondary NOT GIVENUNK K[place] Insurance:SELF PAY [facility] Number: Effective Repository Date:2018-07-11 07/17/2018 CASSIE [id number] Insurance:UNITED MILLERDOB: Community [address] [place] [address] [id number] [place] [address]Kzu: Number: Repository [id number] () Date:6296-55-07SU[address] [address]QR: 07/17/2018 Secondary NOT GIVENUNK [place] Insurance:SELF PAY [facility] Number: Effective Repository Date:2018-07-17 07/15/2018 CASSIE Figueroa Dora MUELLER Monty Camarilloanushka MILLERDOB: Insurance:UNITED MILLERDOB: [facility] HEALTHCARE COMMERCIAL [id number] [address] [address] Repository [address] [place] [address], Number: 39[place], [place] [address]Hvz: [id number] [place] [id number] Date:Plan Name: () 07/10/2018 CASSIE [id number] Insurance:UNITED MILLERDOB: [address] [id number] [facility] [place] [address]Gxh: Number: Repository [id number] () Date:8808-95-89UO[address] [address]NS: 07/10/2018 Secondary NOT GIVENUNK [place] Insurance:SELF PAY [facility] Number: Effective Repository Date:2018-07-10 07/05/2018 CASSIE MUELLER Monty Kenny Henry SERGIODOB: Insurance:UNITED MILLERDOB: [facility] HEALTHCARE COMMERCIAL [id number] [address] [address] Repository [address] [place] [address], Number: [address], [place] [address]Xqw: [id number] [place] [id number] Date:Plan Name: (HP) 06/19/2018 CASSIE Figueroa Primary JAYDEN [id number] Insurance:UNITED MILLERDOB: [address]31[facility] [address]Xlb: Number: Repository [id number] (HP) Date:6150-05-29CZ [address] [address]JX: 06/19/2018 Secondary NOT GIVENUNK [place] Insurance:SELF PAY [facility] Number: Effective Repository Date:2018-06-19 05/30/2018 CASSIE Figueroa Primary JAYDEN [id number] Insurance:UNITED MILLERDOB: [address]31[facility] [address]Diw: Number: Repository [id number] (HP) Date:4405-74-68ZW [address] [address]VZ: 05/30/2018 Secondary NOT GIVENUNK [place] Insurance:SELF PAY [facility] Number: Effective Repository Date:2018-05-30 05/30/2018 CASSIE Figueroa Primary JAYDEN [id number] Insurance:UNITED MILLERDOB: [address]31[facility] [place] [address]Wow: Number: Repository [id number] (HP) Date:9174-36-29YH [address] [address]CH: 05/30/2018 Secondary NOT GIVENUNK [place] Insurance:SELF PAY [facility] Number: Effective Repository Date:2018-05-30 05/29/2018 CASSIE Figueroa Primary JAYDEN [id number] Insurance:UNITED MILLERDOB: [address]31[facility] [address]Sdp: Number: Repository [id number] (HP) Date:3392-04-42AA [address] [address]FZ: 05/29/2018 Secondary NOT GIVENUNK [place] Insurance:SELF PAY [facility] Number: Effective Repository Date:2018-05-29 05/17/2018 CASSIE Figueroa [facility] JAYDEN [id number] Sr Insurance:UNITED MILLERDOB: [address] [id number] [place] [address]Gel: Number: Repository [id number] (HP) Date:2779-25-35TW [address] [address]PC: 05/17/2018 Secondary NOT GIVENUNK Kassidy Insurance:SELF PAY [facility] Number: Effective Repository Date:2018-05-17 05/16/2018 CASSIE Figueroa [facility] JAYDEN [id number] Insurance:UNITED CHICAGODOB: [address] [id number] [place] [address]Gdq: Number: Repository [id number] (HP) Date:5292-26-94RC [address] [address]AQ: 05/16/2018 Secondary NOT GIVENUNK [place]idy Insurance:SELF PAY [facility] Number: Effective Repository Date:2018-05-16 05/09/2018 CASSIE [id number] Sr Insurance:UNITED MILLERDOB: [address] [id number] [facility] [place] [address]Qsr: Number: Repository [id number] (HP) Date:8111-67-33ZY [address] [address]KT: 05/09/2018 Secondary NOT GIVENUNK [place] Insurance:SELF PAY [facility] Number: Effective Repository Date:2018-05-09 05/08/2018 CASSIE [facility] Giovany MILLERDOB: Insurance:United MILLERDOB: Hospitals [id number] [facility] [id number] Repository STATE [facility] Number: [address] [place] [address], [id number] [address] [place] [address] Date:Plan Name:[facility] [id number]: (HP) 05/03/2018 CASSIE Figueroa Primary JAYDEN [id number] Insurance:UNITED MILLERDOB: [address] [id number] [facility] [address]Eoi: Number: Repository [id number] (HP) Date:7972-23-04KN [address] [address]NV: 05/03/2018 Secondary NOT GIVENUNK [place] Insurance:SELF PAY [facility] Number: Effective Repository Date:2018-05-03 04/25/2018 CASSIE Figueroa Primary JAYDEN [id number] Sr Insurance:UNITED MILLERDOB: [address] [id number] [facility] [address]Iio: Number: Repository [id number] (HP) Date:2773-74-34GO[address] [address]CI: 04/25/2018 Secondary NOT GIVENUNK [place] Insurance:SELF PAY [facility] Number: Effective Repository Date:2018-04-25 04/25/2018 CASSIE Figueroa Primary JAYDEN [id number] Insurance:UNITED MILLERDOB: [address] [id number] [facility] [address]Oex: Number: Repository [id number] (HP) Date:3809-21-03EZ[address] [address]TI: 04/25/2018 Secondary NOT GIVENUNK [place] Insurance:SELF PAY [facility] Number: Effective Repository Date:2018-04-25 04/20/2018 CASSIE Figueroa Primary JAYDEN [id number] Sr Insurance:UNITED MILLERDOB: [address] [id number] [facility]'s [facility] [address]Uek: Number: Repository [id number] (HP) Date:1326-25-79[address], [place] [address]FI: 04/20/2018 Secondary NOT GIVENUNK [place] Insurance:SELF PAY [facility] Number: Effective Repository Date:2018-04-20 04/19/2018 CASSIE [facility] Hospital[facility] [place] Number: [id number] [employer] [id number] [address] [place] [address], Date:7690-55-06Slbb [address] [place] [address], Repository [place] [address]Bcb: Name:[place] [address]Ump: (HP) (HP) 04/19/2018 CASSIE Millan [facility] MILLERDOB: Insurance:[facility]: Od[place] Number: [id number] [employer] [id number] [address], Date:5835-44-67Dosn [address] [place] [address], Repository [place] [address]Eeg: Name:[place] [address]Ksp: (HP) (HP) 04/19/2018 [facility]an [facility] MILLERDOB: Insurance:[facility] HospitalB: [place] Number: [id number] [employer] [id number] [address], Date:9583-57-16Mrkf [address] [place] [address], [facility] [place] [address]Bzq: Name:MANAGED [place]ARE [place] [address]Hnz: (HP) (HP) 04/19/2018 [facility] JAYDEN Millan [facility] Center[facility]: Insurance:[facility] HospitalB: [place] Number: [id number] [employer]Movli [id number] [address], Date:8033-14-29Ddyq [address] [place] [address], Repository [place] [address]Lta: Name:[facility] [place] [place] [address]Vjn: () (HP) 04/19/2018 CASSIE [id number] Sr Insurance:UNITED MILLERDOB: [address] [id number] [facility] [address]Csr: Number: Repository [id number] (HP) Date:9472-72-55HK [address] [address]EN: 04/19/2018 Secondary NOT GIVENUNK [place] Insurance:SELF PAY [facility] Number: Effective Repository Date:2018-04-19 04/17/2018 CASSIE [id number] Sr Insurance:UNITED CHICAGODOB: [address] [id number] [facility] [address]Jfd: Number: Repository [id number] (HP) Date:0617-47-17BA[address] [address]MC: 04/17/2018 Secondary NOT GIVENUNK Kassidy Insurance:SELF PAY [facility] Number: Effective Repository Date:2018-04-17 04/12/2018 CASSIE [id number] Sr Insurance:UNITED CHICAGODOB: [address] [id number] [facility] [address]Kqs: Number: Repository [id number] (HP) Date:5668-31-87GJ[address] [address]WA: 04/12/2018 Secondary NOT GIVENUNK K[place]idy Insurance:SELF PAY [facility] Number: Effective Repository Date:2018-04-12 03/22/2018 INDERJITSilvia Dora MUELLER Monty [facility] MILLERDOB: Insurance:[facility] HospitalB: Odin [id number] Number: [id number] [facility] [id number] [address], Date:3000-53-69Vawy[address], Repository [place] [address]Noo: Name:[place]ED [place] [address]Frq: (LP) (HP) 03/15/2018 [facility]4713 Sr Insurance:[facility]: [address] [id number] [facility] [address]Uns: Number: Repository [id number] (HP) Date:8915-04-11[address] [place] [address]IU: 03/15/2018 [facility]:SELF PAY [facility] Number: Effective Repository Date:2018-03-15 03/13/2018 [facility]:United CHICAGODOB: [facility] [id number] Repository [facility] Number: [address] [place] [address], [id number] [place], [place] Date:Plan Name:[facility] [id number]: () 03/05/2018 [facility] HealthD[facility]: Insurance:United CHICAGODOB: [facility] [id number] Repository [facility] Number: [address] [place] [address], [id number] [address] [place] [address], [place] Date:Plan Name:[facility] [id number]: (HP) 02/21/2018 [facility] HealthD[facility]: Insurance:United CHICAGODOB: [facility] [id number] Repository [facility] Number: [address], [id number] [address] [place] [address], [place] Date:Plan Name:Health [place] [id number]: (HP) 02/21/2018 [facility] MILLERDOB: Insurance:United MILLERDOB: [facility] [id number] Repository [address] [facility] Number: [address] [place], [id number] [address] [place] [address], [place] Date:Plan Name:[facility] [id number]: () 02/21/2018 [facility] MILLERDOB: Insurance:United MILLERDOB: [facility] [id number] Repository [address] [facility] Number: [address] [place], [id number] [address] [place] [address] Date:Plan Name:[facility] [id number]: () 02/13/2018 [facility] [id number] Sr Insurance:UNITED CHICAGODOB: [address] [id number] [facility] [place] [address]Kbl: Number: Repository [id number] () Date:0212-73-43HN[address] [address]HK: 02/13/2018 Secondary NOT GIVENUNK [place] Insurance:SELF PAY [facility] Number: Effective Repository Date:2018-02-13 02/06/2018 [facility] Kenny Henry CHICAGODOB: Insurance:UNITED CHICAGODOB: [facility] HEALTHCARE COMMERCIAL [id number] Hospital [address] OUTPATIENTPolicy [address] Repository [address] [place] [address], Number: 39[place], [place] [address]Dnz: [id number] [place] [address] Date:1379-00-29Kqbh () Name:PI 02/05/2018 [facility]: Insurance:United MILLERDOB: [facility] [id number] Repository [address] [facility] Number: [address] [place], [id number] [address] [place] [address], [place] Date:Plan Name:[facility] [id number]: () 01/02/2018 [facility] MILLERDOB: Insurance:United MILLERDOB: [facility] [id number] Repository [address] [place] Number: [address] [place], [id number] [address] [place] [address], [place] Date:Plan Name:Health [place] [id number]: (HP) 12/28/2017 [facility] Kenny Henry MILLERDOB: Insurance:UNITED CHICAGODOB: [facility] HEALTHCARE COMMERCIAL [id number] [facility] OUTPATIENTPolicy 3 SR Repository [address] [place] [address], Number: [place], [place] [address]Ysf: [id number] [place] [id number] Date:Plan Name: (HP) 12/26/2017 [facility] MILLERDOB: Insurance:United MILLERDOB: [facility] [id number] Repository STATE [facility] Number: [address] [place] [address], [id number] [address] [place] [address], [place] Date:Plan Name:[facility] [id number]: () 12/26/2017 [facility] MILLERDOB: Insurance:United MILLERDOB: [facility] [id number] Repository [address] [place] Number: [address] [place], [id number] [address] [place] [address], [place] Date:Plan Name:[facility] [id number]: () 12/26/2017 [facility]: Insurance:United MILLERDOB: [facility] [id number] Repository [address] [place] Number: [address] [place], [id number] [address] [place] [address], [place] Date:Plan Name:[facility] [id number]: (HP) 12/25/2017 INDERJITSilvia Henry MILLERDOB: Insurance:UNITED MILLERDOB: [facility] HEALTHCARE COMMERCIAL [id number] [facility] OUTPATIENTPolicy 3 SR Repository [address] [place] [address], Number: 39[place], [place] [address]Dwc: [id number] [place] [address] Date:Plan Name:U1 () 12/19/2017 [facility] MILLERDOB: Insurance:United MILLERDOB: [facility] [id number] Repository STATE [facility] Number: [address] [place] [address], [id number] [address] [place] [address], [place] Date:Plan Name:[facility] [id number]: (HP) 12/18/2017 CASSIE Henry [facility] JAYDEN Henry MILLERDOB: Insurance:UNITED MILLERDOB: [facility] HEALTHCARE COMMERCIAL [id number] [facility] OUTPATIENTPolicy [address] [place] [address], Number: 39[place], [place] [address]Glr: [id number] [place] [address] Date:Plan Name:U1 () 12/12/2017 [facility] MILLERDOB: Insurance:United MILLERDOB: [facility] [id number] Repository [address] [place] Number: [address] [place], [id number] [address] [place] [address], [place] Date:Plan Name:Health [place] [id number]: (HP) 12/11/2017 INDERJITSilvia Henry MILLERDOB: Insurance:UNITED MILLERDOB: [facility] HEALTHCARE COMMERCIAL [id number] [facility] OUTPATIENTPolicy 3 SR Repository [place], Number: [place], [place] [address]Knj: [id number] [place] [address] Date:Plan Name:U1 () 12/05/2017 [facility] MILLERDOB: Insurance:United MILLERDOB: [facility] [id number] Repository STATE [facility] Number: [address] [place] [address], [id number] [address] [place] [address] Date:Plan Name:Health [place] [id number]: (HP) 12/04/2017 CASSIE [facility]ER [facility] Hospitalan[facility] MILLERDOB: Insurance:UNITED MILLERDOB: [facility] HEALTHCARE COMMERCIAL [id number] [facility] OUTPATIENTPolicy 3 SR Repository [place], Number: [address], [place] [address]Pns: [id number] [place] [address] Date:Plan Name:U1 () 11/28/2017 [facility] MILLERDOB: Insurance:United MILLERDOB: [facility] Health[facility] Of [id number] Repository STATE [facility] Number: [address] [place] [address], [id number] [address] [place] [address], [place] Date:Plan Name:Health [place] [id number]: (HP) 11/27/2017 CASSIE [facility]UELLER [facility] Kerens MILLERDOB: Insurance:UNITED MILLERDOB: [facility] HEALTHCARE COMMERCIAL [id number] Hospital OUTPATIENTPolicy 3 SR Repository [place], Number: [place], [place] [address]Xvs: [id number] [place] [address] Date:Plan Name:U1 () 11/22/2017 [facility] MILLERDOB: Insurance:United MILLERDOB: [facility] [id number] Repository [address] [facility] Number: [address] [place] [address], [id number] [address] [place] [address] Date:Plan Name:[facility] [id number]: () 11/09/2017 CASSIE Henry CHICAGODOB: Insurance:[facility]: [facility] HEALTHCARE COMMERCIAL [id number] [facility] OUTPATIENTPolicy 3 SR Repository [address] [place] [address], Number: [place], [place] [address]Zoq: [id number] [place] [address] Date:Plan Name:U1 () 11/04/2017 CASSIE Henry CHICAGODOB: Insurance[facility]: [facility] HEALTHCARE COMMERCIAL [id number] [facility] OUTPATIENTPolicy 3 SR Repository [address] [place] [address], Number: [place], [place] [address]Vig: [id number] [place] [address] Date:Plan Name:U1 ()
== END ==
PROVIDERS: Family Provider Family Medicine; PCP Family Medicine; Visit Provider Obstetrics & Gynecology
DX: N92.1 Excessive and frequent menstruation with irregular cycle (principal); D64.9 Anemia, unspecified
CPT/HCPCS: 36415; 85027

== ENCOUNTER → 2019-04-10 14:07 | Outpatient (CLI) | payer OTHER, SELFPAY ==
[2018-04-17 16:09] VITALS: BMI 25.4
[2019-03-20 14:26] VITALS: BMI 23.9
--- NOTE | 2019-04-10 14:12 | US_ITS ---
HISTORY: AUB- H/O BREAST CA EXAMINATION: US Pelvis Non OB Complete With Transvaginal Imaging TECHNIQUE: Transabdominal and transvaginal pelvic ultrasound was performed. Grayscale, spectral and color flow Doppler evaluation of the adnexa. COMPARISON: CT abdomen pelvis 08/30/17. MRI pelvis 09/21/15. FINDINGS: UTERUS: anteverted The uterus measures 9.5 x 7.5 x 5.9 cm. While no focal uterine mass is evident, the uterus is globular in contour and prominent in size, similar to the previous MRI. The endometrial stripe measures 1.2 cm in AP diameter which is within normal limits. RIGHT OVARY: Status post right oophorectomy. No suspicious adnexal mass. LEFT OVARY: 3.8 x 2.6 x 2.1 cm. It contains a physiologic mildly complex 1.8 cm diameter cyst. Non-enlarged, normal echogenicity. There is normal arterial inflow and venous outflow present in the left ovary. FREE FLUID: Small amount of free fluid in the pelvis within physiologic limits. US/Transvaginal Non- IMPRESSION: No acute findings. Heterogenous mildly prominent in size uterus similar to the previous MRI. No focal uterine mass is evident. Physiologic 1.8 cm left ovarian cyst. Status post right oophorectomy. at 1620 Reported and signed by: Rubio Angel MD Electronically Signed: Rubio Angel, at 16:18 EDT Tel , Service support ,
--- NOTE | 2019-04-10 14:12 | US_ITS ---
HISTORY: AUB- H/O BREAST CA EXAMINATION: US Pelvis Non OB Complete With Transvaginal Imaging TECHNIQUE: Transabdominal and transvaginal pelvic ultrasound was performed. Grayscale, spectral and color flow Doppler evaluation of the adnexa. COMPARISON: CT abdomen pelvis 08/30/17. MRI pelvis 09/21/15. FINDINGS: UTERUS: anteverted The uterus measures 9.5 x 7.5 x 5.9 cm. While no focal uterine mass is evident, the uterus is globular in contour and prominent in size, similar to the previous MRI. The endometrial stripe measures 1.2 cm in AP diameter which is within normal limits. RIGHT OVARY: Status post right oophorectomy. No suspicious adnexal mass. LEFT OVARY: 3.8 x 2.6 x 2.1 cm. It contains a physiologic mildly complex 1.8 cm diameter cyst. Non-enlarged, normal echogenicity. There is normal arterial inflow and venous outflow present in the left ovary. FREE FLUID: Small amount of free fluid in the pelvis within physiologic limits. US/Pelvic (Non ) IMPRESSION: No acute findings. Heterogenous mildly prominent in size uterus similar to the previous MRI. No focal uterine mass is evident. Physiologic 1.8 cm left ovarian cyst. Status post right oophorectomy. at 1620 Reported and signed by: Rubio Angel MD Electronically Signed: Rubio Angel, at 16:18 EDT Tel , Service support ,
== END ==
PROVIDERS: Family Provider Family Medicine; PCP Family Medicine
DX: N93.9 Abnormal uterine and vaginal bleeding, unspecified (principal)
CPT/HCPCS: 76830; 76856; 93976